=== PATIENT | female | born 1965 | race Hispanic/Latino ===

== ENCOUNTER → 2021-09-08 | Outpatient (CLI) | payer BC | END | disposition home or self-care (01) | LOC: RAH 13:00 | PROVIDERS: ATTEND Family Medicine | DX: M79.662 Pain in left lower leg (principal); R60.0 Localized edema | CPT/HCPCS: 93971 ==

== ENCOUNTER 2024-04-25 22:17 | Inpatient (IN) | payer BC ==
[~2024-04-25] VITALS: Ht 157.5 cm; Wt 123.1 kg
--- NOTE | 2024-04-25 22:34 | ERN ---
ED Note History of Present Illness Stated Complaint: C/O CHILLS, SHIVERING, FEVER Chief Complaint: Fever Time Seen by MD: 22:28 Dictation: This is a 58-year-old female morbidly obese presented to the emergency room with complaints of high fevers chills and shivering. She stated that she went to work today and even picked up her grandchildren and had a normal day however as the night went by she started having severe chills and high fever somewhere around 9:15 p.m.. She denied any nausea vomiting diarrhea hematemesis or melena no history of any headaches body aches. No history of any dysuria hematuria burning micturition. She was extremely weak and looked sick even to move out of wheelchair. Although initially she denied any pain anywhere eventually upon re- evaluation she did indicate that she had left flank pain for the past 2-3 days which is new. Temperature was 105 pulse 110 respirations 20 blood pressure 116/57 with a pulse oximetry of 97% on room She has a known history of diabetes mellitus and hypertension. Allergies: Coded Allergies: No Known Allergies (Unverified Allergy, Unknown, 04/25/24) Past Medical History Past Medical History: Diabetes-Type II, Hypertension Surgical History: None Family History: Negative History: Not Applicable RN Note Reviewed/Agreed w/PFSH: Yes Review of System Dictation Constitutional: Positive for fever,chills, and denies weight loss Eyes: Negative for injury, pain,redness, and discharge ENT: Negative for injury,pain or swelling Cardiovascular: Negative for chest pain, palpitations, and edema Respiratory: Negative for shortness of breath, cough, and wheezing, Abdomen/GI: Negative for abdominal pain, nausea, vomiting, diarrhea, and constipation Back: Negative for injury and pain : Negative for injury, bleeding and discharge MS/Extremity: Negative for injury and deformity Skin: Negative for rash, and discoloration Neuro: Negative for headache, weakness, numbness, tingling, and seizure Psych: Negative for suicide ideation, homicidal ideation, and hallucinations Initial Vital Sign VS Vital Signs Date Time Temp Pulse Resp B/P (MAP) Pulse Ox O2 Delivery O2 Flow Rate FiO2 04/25/24 22:23 105.1 110 20 116/57 93 Room Air 04/25/24 22:45 0 21 Physical Exam Dictation General: awake, alert, NAD morbidly obese Head/Face: Normocephalic, atraumatic Eyes: PERRL, EOMI, vision at baseline ENT: oral cavity clear, TMs clear, no signs of infection Neck: Trachea midline, supple, no nuchal rigidity Cardiovascular: RRR, normal S1/S2, No MRGs, no JVD Respiratory: CTAB, no respiratory distress, No rales or wheezes Abdomen: Soft, non-tender, non-distended, normal bowel sounds, no guarding or rebound. Left flank tenderness Skin: Warm, dry, normal turgor, no rash MS/Extremity: Pulses equal, no cyanosis, neurovascular intact, FROM Neuro: COAx4, GCS 15, strength 5/5, CN 2-12 intact, normal cerebellar exam, normal gait, Psych: Normal behavior, mood, and affect normal Extremities-trace edema without any palpable cords, Homans sign is negative Results (Laboratory/Radiology) Laboratory/Radiology Laboratory Tests Test 04/25/24 22:37 04/25/24 22:45 04/26/24 00:10 Urine Color LIGHT-YELLOW (YELLOW) Urine Appearance CLEAR (CLEAR) Urine pH 5.5 (5.0-8.0) Urine Specific [place] 1.032 (1.001-1.031) Urine Protein 10 mg/dL (NEGATIVE) H Urine Glucose (UA) >=1000 mg/dL (NEGATIVE) H Urine Ketones NEGATIVE mg/dL (NEGATIVE) Urine Occult Blood +- (TRACE) (NEGATIVE) H Urine Nitrate NEGATIVE (NEGATIVE) Urine Bilirubin NEGATIVE mg/dL (NEGATIVE) Urine Urobilinogen 0.2 mg/dL (0.2-1.0) Urine Leukocyte Esterase NEGATIVE Sandor/uL Urine RBC 2-5 /HPF (0-1) H Urine WBC 6-10 /HPF (0-1) H Urine Squamous Epithelial Cells FEW /HPF (0-2) Urine Bacteria None /HPF (None Seen) White Blood Count 3.5 K/uL (4.8-10.8) L Red Blood Count 4.69 MIL/uL (4.00-5.50) Hemoglobin 14.0 g/dL (12.0-16.0) Hematocrit 42.0 % (36-48) Mean Corpuscular Volume 89.6 fL (79-99) Mean Corpuscular Hemoglobin 29.9 pg (27.0-33.0) Mean Corpuscular Hemoglobin Concent 33.3 g/dL (32.0-36.0) Red Cell Distribution Width 14.8 % (11.0-15.5) Platelet Count 161 K/uL (130-400) Mean Platelet Volume 10.3 fL (7.5-10.5) Immature Granulocyte % (Auto) 4.6 % (0-1) H Neutrophils (%) (Auto) 81.1 % (40.0-77.0) H Lymphocytes (%) (Auto) 11.4 % (21.0-51.0) L Monocytes (%) (Auto) 1.4 % (3.0-13.0) L Eosinophils (%) (Auto) 0.6 % (0.0-8.0) Basophils (%) (Auto) 0.9 % (0.0-5.0) Neutrophils # (Auto) 2.8 K/uL (1.8-7.7) Lymphocytes # (Auto) 0.4 K/uL (1.0-4.8) L Monocytes # (Auto) 0.1 K/uL (0.1-1.0) Eosinophils # (Auto) 0.02 K/uL (0.00-0.70) Basophils # (Auto) 0.03 K/uL (0.00-0.20) Absolute Immature Granulocyte (auto 0.16 K/uL (0-1) Nucleated Red Blood Cells 0.0 % (0.0-0.19) Sodium Level 142 mmol/L (136-145) Potassium Level 3.8 mmol/L (3.5-5.1) Chloride Level 104 mmol/L (101-111) Carbon Dioxide Level 28 mmol/L (21-32) Blood Urea Nitrogen 13 mg/dL (7-18) Creatinine 0.8 mg/dL (0.5-1.0) Glomerular Filtration Rate Calc 85 mL/min (>90) Random Glucose 117 mg/dL (70-105) H Lactic Acid Level 3.8 mmol/L (0.8-2.5) H Total Calcium 8.6 mg/dL (8.5-10.1) Total Creatine Kinase 60 U/L (21-232) Troponin I High Sensitivity 31 ng/L (4-50) B-Type Natriuretic Peptide 42 pg/mL (0-100) Influenza Type A Antigen Negative For Type A Influenza Type B Antigen Negative For Type B SARS-CoV-2 Antigen (Rapid) PRESUMPTIVE NEGATIVE Blood Gas Specimen Type Arterial Arterial Blood pH 7.458 (7.350-7.450) Arterial Blood Partial Pressure CO2 27 mmHg (32-45) L Arterial Blood Partial Pressure O2 59.9 mmHg (83.0-108.0) L Arterial Blood HCO3 18.8 mmol/L (21.0-28.0) L Arterial Blood Oxygen Saturation 92.3 % (94.0-98.0) L Arterial Blood Base Excess -3.4 mmol/L (-2.0-3.0) L Hemoglobin (Blood Gas) 14.5 g/dL (12.0-16.0) Sodium (Blood Gas) 140 MMOL/L (136-145) Bedside Potassium (Blood Gas) 3.2 MMOL/L (3.4-4.5) L Bedside Chloride (Blood Gas) 105 MMOL/L (98-107) Bedside Glucose (Blood Gas) 126 MG/DL (65-95) H Bedside Ionized Calcium (Blood Gas) 1.13 MMOL/L (1.15-1.33) L Bedside Lactic Acid (Blood Gas) 3.72 MMOL/L (0.36-0.75) *H Blood Gas Temperature 37.0 CELSIUS (35.5-37.0) Blood Gas Vent Mode RA (ROOM AIR) FiO2 21.0 % Blood Gas Specimen Comment LR Labs Reviewed?: Yes EKG Comment: EKG done on 04/25/2024 at 10:42 p.m. showed a heart rate of 1 1 9, SC 123, QRS 143, QT/QTC 370/521 Impression sinus tachycardia with a evidence of right bundle branch block intraventricular conduction delay small Q's in the inferior leads. Interpreted by Dr. Head ED Course ED Course Orders Procedure Category Date Status Time Iv Insertion CPOE 04/25/24 Transmitted 22:27 Pulse Ox(Continuous) RT 04/25/24 Transmitted 22:27 Vital Signs Per CPOE 04/25/24 Transmitted Routine 22:27 12 Lead Ekg Tracing- EKG 04/25/24 Logged Technical 22:27 Cbc With Differential LAB 04/25/24 Complete 22: Blood Cult [facility]IOMA 04/25/24 In Process 22:27 Culture Urine [facility]OMA 04/25/24 In Process 22:27 Creatine Kinase, Total LAB 04/25/24 Complete 22:27 Lactic Acid LAB 04/25/24 Complete 22:27 Basic Metabolic Panel LAB 04/25/24 Complete 22:27 0.9%Nacl 1000ml (Ns PHA 04/25/24 Complete 1000ml) 22:30 Blood Cult CHIOMA 04/25/24 Logged 22:28 Urinalysis Profile LAB 04/25/24 Complete 22:28 Troponin I High LAB 04/25/24 Complete Sensitivity 22:28 Chest 1vw RAD 04/25/24 Taken 22:28 Acetaminophen 500mg PHA 04/25/24 Complete Tab (Tylenol 500mg T 22:30 Influenza Type A & B, LAB 04/25/24 Complete Rapid 22:31 Covid19 (Sars Antigen LAB 04/25/24 Complete Rapid) 22:31 B-Type Natriuretic LAB 04/25/24 Complete Peptide 23:35 Zosyn 3.375gm+Ns 50ml PHA 04/26/24 Complete (Zosyn 3.375gm+Ns 00:00 Vancomycin 1g/250ml PHA 04/26/24 Complete Kit (Vancomycin 1g/2 00:00 Azithromycin 500mg+Ns PHA 04/26/24 In Process 250ml (Azithromyci 00:00 Norepinephrin 4mg/Ns PHA 04/26/24 In Process 250ml (Levophed 4mg 00:00 Norepinephrin 4mg/Ns PHA 04/25/24 Complete 250ml (Levophed 4mg 23:43 Admit Orders ADM 04/25/24 Transmitted 23:52 Lactated Ringers PHA 04/26/24 In Process 1000ml (Lactated 00:00 Edm Admit Bridge Order ADM 04/25/24 Transmitted 23:58 Admit Orders ADM 04/25/24 Transmitted 23:58 Ct Abdomen/Pelvis W/O CT 04/25/24 Logged Contrast 23:58 Hydrocortisone Suc PHA 04/26/24 Complete 100mg (Solu-Cortef 1 00:00 Arterial Blood Gas LAB 04/26/24 Complete Arterial + 00:10 Arterial Blood Gas + RT 04/26/24 Transmitted 00:23 Current Medications Medications (Trade) Dose Ordered Sig/Karthik Route PRN Reason Start Time Stop Time Status Last Admin Dose Admin Acetaminophen (TYLenol 500MG TAB) 1,000 mg ONCE ONCE PO 04/25/24 22:30 04/25/24 22:31 DC 04/25/24 22:55 Norepinephrine 250 ml @ As Directed STK-MED ONCE IV 04/25/24 23:43 04/25/24 23:43 DC Sodium Chloride 1,000 ml @ 0 mls/hr ONCE ONCE IV 04/25/24 22:30 04/25/24 22:31 DC 04/25/24 22:54 Vital Signs Date Time Temp Pulse Resp B/P (MAP) Pulse Ox O2 Delivery O2 Flow Rate FiO2 04/25/24 23:55 84/39 04/25/24 23:46 101.7 117 28 69/33 90 Nasal Cannula* 2 28 04/25/24 23:00 102.9 118 29 100/48 93 Room Air* 0 21 04/25/24 22:55 102.9 04/25/24 22:45 102.9 124 26 99/42 93 Room Air* 0 21 04/25/24 22:23 105.1 110 20 116/57 93 Room Air We will perform diagnostic labs, advanced imaging and administer medications according to the patient's complaint. Once the results are available, will review and personally interpreted the labs to rule out any acute life- threatening emergency the trach require immediate intervention and treatment. I will then re-evaluate the patient after treatment and diagnostic exams have return to determine whether the patient requires any further testing, can safely be discharged home or need further admission to hospital for additional treatment and evaluation. Sepsis pathway was initiated 11:50 p.m. Reviewed CBC showed a white count of 3.5 lactic acid 3.8 viral serology negative for influenza and COVID urinalysis was abnormal with a 6-10 WBCs no leuko esterase. Chest x-ray showed a poor penetration but no obvious focal infiltrate. Patient received 2 L of fluids so far and the blood pressures are hovering around 99-100/42-48. She remains febrile at 1:02 a.m. 0.9. We will initiate pressors as necessary keep maps 60-65. Patient may certainly have pyelonephritis or perinephric abscess I will request CT scan of the abdomen and pelvis to better evaluate the source of fever. Recommended admission to the hospital for further management 11:54 p.m.-patient was accepted by hospitalist group mid-level provider Jose for admission to ICU and further management CT scan of the abdomen and pelvis requested pending at this time Medical Decision Making MDM MDM: Differential diagnosis: Rationale: Tests considered and ordered secondary to shared decision making include: labs, ECG and radiology Previous outside records reviewed: Old ER visits. Risk of complication and/or morbidity or mortality of patient management: None Medications-Per medication reconciliation Need for hospitalization: Patient does meet criteria for hospitalization. Need for emergency major/minor surgery: No There are no social concerns with this patient. Prescription drug management Prescriptions will include symptomatic care Patient's prior external medical records from other ER visits were reviewed by me as indicated. Prior testing and results from previous visits were reviewed. Prior tests were taken into account with medical decision making and resource utilization, independent historian/historians were used to obtain complete m edical history. I independently interpreted the test that were performed, results were reviewed by me and considered findings on radiology if ordered. Medical management and examination interpretation discussions were had by me with other qualified healthcare professionals as indicated for the patient's care. Problem List Problem List: (1) Diabetes mellitus (2) Acute cystitis (3) Hyperthermia (4) Septic shock (5) Pyelonephritis DX & DISP Disposition: Inpatient Decision to Admit Time: 11:45 Departure Impression: Primary Impression: Septic shock Additional Impressions: Pyelonephritis, Diabetes mellitus, Acute cystitis, Hyperthermia Condition: Stable Additional Instructions: Patient was informed of all the diagnostic labs and procedures conducted in the emergency room today and demonstrated understanding of the results. I personally reviewed and interpreted all the diagnostic exams performed in the ER today. The patient will be admitted to the hospital for further treatment and evaluation. Disposition-admit to facility Condition-stable/guarded Course-uncertain at this time Pain status-decreased Assessment-exam unchanged Admission Certification- I certify that the patients status is appropriate and is based on my best clinical judgment and the patient's condition as documented in the medical records Referrals: MOI DELGADO MD (PCP) ROMMEL HEAD MD Apr 25, 2024 22:34
--- NOTE | 2024-04-25 22:40 | NUR ---
1ST SET OF BLOOD CULTURES COLLECTED AT THIS TIME./JORGE
--- NOTE | 2024-04-25 22:50 | NUR ---
PATIENT WEARING A SWEATER, SHORTS AND SWEAT PANTS. INSTRUCTED PATIENT TO REMOVE CLOITHING ITEMS AT THIS TIME DUE TO FEVER BEING PRESENT, PATIENT VERBALIZED UNDERSTANDING. HOSPITAL GOWN PROVIDED AT THIS TIME./JORGE
[2024-04-25] MEDS: 0.9%NACL 1000ML 1,000 ML IV ONE (22:54)
[2024-04-25 22:55] LABS: APPEARANCE,URINE CLEAR (CLEAR); BILIRUBIN,URINE NEGATIVE (NEGATIVE); COLOR,URINE LIGHT-YELLOW (YELLOW); GLUCOSE, URINE (UA) >=1000 mg/dL (NEGATIVE); KETONES,URINE NEGATIVE (NEGATIVE); LEUKOCYTE ESTERASE ,URINE NEGATIVE Leu/uL (NEGATIVE); NITRATE,URINE NEGATIVE (NEGATIVE); PH,URINE 5.5 (5.0-8.0); PROTEIN,URINE 10 mg/dL (NEGATIVE); UROBILINOGEN,URINE 0.2 mg/dL (0.2-1.0)
[2024-04-25] MEDS: acetaMINOPHEN 500 MG TABLET PO ONE (22:55)
[2024-04-25 22:57] LABS: ADD UA MICROSCOPIC YES
[2024-04-25 23:02] LABS: MUCUS,URINE RARE LPF (None Seen); SQUAMOUS EPITHELIAL CELL,UR FEW /HPF (0-2)
[2024-04-25 23:15] LABS: COVID19 (SARS ANTIGEN RAPID) PRESUMPTIVE NEGATIVE (NEGATIVE)
[2024-04-25 23:16] LABS: INFLUENZA TYPE A Negative For Type A (NEGATIVE); INFLUENZA TYPE B Negative For Type B (NEGATIVE)
--- NOTE | 2024-04-25 23:32 | NUR ---
Dr Mckoy made aware of current vitals, no orders for antibiotics given
[2024-04-25 23:37] LABS: BASOPHILS # (AUTO) 0.03 K/uL (0.00-0.20); BASOPHILS % (AUTO) 0.9 % (0.0-5.0); EOSINOPHILS # (AUTO) 0.02 K/uL (0.00-0.70); EOSINOPHILS % (AUTO) 0.6 % (0.0-8.0); IMMATURE GRANULOCYTE ABSOLUTE 0.16 K/uL (0-1); LYMPHOCYTES # (AUTO) 0.4 K/uL (1.0-4.8); LYMPHOCYTES % (AUTO) 11.4 % (21.0-51.0); MEAN CORPUSCULAR HEMOGLOBIN 29.9 pg (27.0-33.0); MEAN CORPUSCULAR HGB CONC 33.3 g/dL (32.0-36.0); MEAN CORPUSCULAR VOLUME 89.6 fL (79-99); MONOCYTES # (AUTO) 0.1 K/uL (0.1-1.0); MONOCYTES % (AUTO) 1.4 % (3.0-13.0); NEUTROPHILS # (AUTO) 2.8 K/uL (1.8-7.7); NEUTROPHILS % (AUTO) 81.1 % (40.0-77.0); PLATELET COUNT (AUTO) 161 K/uL (130-400); RED BLOOD CELL COUNT(AUTO) 4.69 MIL/uL (4.00-5.50); RED CELL DISTRIBUTION WIDTH 14.8 % (11.0-15.5); WHITE BLOOD COUNT (AUTO) 3.5 K/uL (4.8-10.8)
[2024-04-25 23:45] LABS: CREATININE 0.8 mg/dL (0.5-1.0); POTASSIUM 3.8 mmol/L (3.5-5.1)
--- NOTE | 2024-04-25 23:53 | HP ---
History of Present Illness Reason for Visit: chills History of Present Illness Ms. Rodriguez is a 58-year-old female that was seen and examined today on 04/25/24. Patient is a good historian and personal health. Patient reports that she came to the emergency department with a chief complaint of chills. Onset was today at 9:00 p.m.. Location is to entire body. Duration is on and off. Character is described as" uncontrolled shivering. " symptoms are aggravated with prolonged sitting. There was no alleviating factors. Patient reports associated left flank pain. Today in the emergency department WBCs 3.5, left shift neutrophils 81.1%, lactic acid 3.8. Chest x-ray is pending radiology interpretation. No further diagnostic imaging has been ordered at the time of admission. Additionally patient arrived with a temperature of 102.9, heart rate 118, respirations 29, blood pressure decreased to 69/33, lactic acid 3.8. Blood pressure did not respond to fluid resuscitation. Patient was subsequently subsequently started on vasopressor therapy with Levophed. Emergency room physician recommended that patient be admitted with a diagnosis of septic shock. Past Medical History ADDITIONAL PAST MEDICAL HISTORY: [Diabetes mellitius type2, hypertension] SOCIAL HISTORY: [Negative for smoking. Patient drinks 1 michelada once a month. Patient denies drug use. Patient lives with the Ramos Rodriguez. Patient is typically independent of all her ADLs. Patient is employed full-time at [employer]. Patient has good access to health care through her insurance. Patient denies difficulty paying her bills.] SURGICAL HISTORY: [Left ankle ORIF, hernia repair, BTL, cholecystectomy] Review of Systems General: No Fever, No Chills, No Night Sweats, No Fatigue, No Malaise, No Appetite, No Other HEENT: No Head Aches, No Visual Changes, No Eye Pain, No Ear Pain, No Dysphasia, No Sinus Congestion, No Post Nasal Drip, No Sore Throat, No Other Pulmonary: No Dyspnea, No Cough, No Pleuritic Chest Pain, No Other Cardiovascular: No: Chest Pain, Palpitations, Orthopnea, Paroxysmal Noc. Dyspnea, Edema, Lt Headedness, Other Gastrointestinal: No: Nausea, Vomiting, Abdominal Pain, Diarrhea, Constipation, Melena, Hematochezia, Other Genitourinary: No Dysuria, No Frequency, No Incontinence, No Hematuria, No Retention, No Other Musculoskeletal: back pain; No: other, neck pain, shoulder pain, arm pain, hand pain, leg pain, foot pain Skin: No Urticaria, No Rash, No Other Neurological: No: Weakness, Numbness, Incoordination, Change in speech, Confusion, Seizures, Other Allergies: Coded Allergies: No Known Allergies (Unverified Allergy, Unknown, 04/25/24) Exam Vital Signs Vital Signs Date Time Temp Pulse Resp B/P (MAP) Pulse Ox O2 Delivery O2 Flow Rate FiO2 04/25/24 23:46 101.7 117 28 69/33 90 Nasal Cannula* 2 28 General Appearance: Alert, Oriented X3, Cooperative, moderate distress HEENT: Atraumatic, PERRLA, EOMI Respiratory: Clear to auscultation, Normal air movement Cardiovascular: Regular rate, Regular rhythm, Normal S1, Normal S2 Abdominal: Normal bowel sounds, Soft, No tenderness Extremities: No edema Skin: No significant lesion Neuro: Normal speech, Strength at 5/5 X4 ext, Sensation intact, Cranial nerves 3-12 NL Psych/Mental Status: Mental status NL, Mood NL, Thoughts/Content NL Assessment/Plan ASSESSMENT: [ Septic shock, POA Hypotension requiring vasopressor support, POA Hyperlactatemia, POA Neutropenia, POA Diabetes mellitius type2, POA Hypertension] PLAN: [ Admit patient to ICU as inpatient status. Place patient on telemetry monitoring. Patient will be followed by critical care team. Septic shock with hypotension requiring vasopressor support, hyperlactatemia, neutropenia: Fluid resuscitation with lactated Ringer's 30 mL/kg. Empiric antibiotic therapy with Zosyn. Check procalcitonin, follow up with the results. Recheck lactic acid in a.m.. Continue vasopressor support with Levophed per hospital protocol. Monitor patient's labs Follow up with radiology report of CT of abdomen and pelvis. Diabetes mellitus type 2: Check hemoglobin A1c in a.m. Glucometer checks a.c. and HS 1800 ADA diet Humulin R sliding scale one Hypertension: Avoid hypertension medications at this time due to hypotension. GI prophylaxis, famotidine 20 mg by mouth once daily. DVT prophylaxis, Lovenox 40 mg subcutaneously once daily. Critical Care Time: I spent ____ 51 __ minutes of critical care time with the patient. I reviewed lab work, change the patient's medication, and coordinated protocol in the event of tachycardia or desaturation. The patient status remains unchanged. This document was generated in part using voice recognition software, occasional wrong word or sound alike substitutions may have occurred due to the inherent limitations of voice recognition software. Read the chart carefully and recognize using context, where the substitutions have occurred. Although every effort was made to edit the content, fuel agent and typing errors may occur ATTESTATION BY PHYSICIAN I have seen and examined the patient. I reviewed the documentation, medical decision making, and treatment plan as noted by the mid-level provider above. I agree with the findings and plan of care. JOSEFINA FRASER [facility] Apr 25, 2024 23:53
[2024-04-25] MEDS: NOREPINEPHRIN 4MG/NS 250ML 250 ML IV SCH (23:55)
[2024-04-25] MEDS: NOREPINEPHRIN 4MG/NS 250ML 250 ML IV ONE (23:56)
[2024-04-26] VITALS (48 sets, daily range): BP systolic 87–158; BP diastolic 43–72; PULSE 62–83; RESP 15–37; TEMP 97.8–98.2; O2SAT 93–98
--- NOTE | 2024-04-26 00:05 | NUR ---
CRITICAL CARE CONSULT AT THIS TIME Addendum: 04/26/24 at 0619 by [email or web address] CRITICAL CARE CONSULT DONE AT THIS TIME;YRN HELMS AT BEDSIDE TO EVALUATE PT
[2024-04-26 00:11] LABS: ABG BASE EXCESS -3.4 mmol/L (-2.0-3.0); ABG HCO3 18.8 mmol/L (21.0-28.0); ABG OXYGEN SATURATION 92.3 % (94.0-98.0); ABG PCO2 27 mmHg (32-45); ABG PH 7.458 (7.350-7.450); CARBON MONOXIDE 0.7 % (0.5-1.5); DEVICE COMMENT LR; HHb 7.6; PO2, ARTERIAL BG 59.9 mmHg (83.0-108.0); VENT MODE, BG RA (ROOM AIR)
[2024-04-26] MEDS: VANCOMYCIN KIT 1 GM/250 ML IV.KIT IV ONE (00:11)
[2024-04-26] MEDS: ZOSYN 3.375GM +NS 50ML IV ONE (00:20)
[2024-04-26] MEDS: LACTATED RINGERS 1000ML 1,503 ML IV ONE ×2 (00:21→10:18)
--- NOTE | 2024-04-26 00:37 | CONS ---
[facility] CONSULTATION NOTE Date Patient Seen: Apr 26, 2024 Time of Visit: 00:27 Supervising Physician: Dr. Gian Umana Reason for Consultation: Septic shock Consulting Physician: [facility] Outpatient Specialists: [ ] Inpatient Consults: [ ] PROBLEM LIST: Septic shock, chest x-ray showed bilateral infiltrates, negative for flu or COVID, POA Morbid obesity, POA Lactic acidosis, POA Acute metabolic acidosis, POA Acute hypoxic respiratory failure, POA DM type 2, with hyperglycemia, POA PLAN: Admit per primary VS per ICU protocol Hold antihypertensive for now Continue Levophed drip Keep map above 65 mmHg Obtain ABG now Continue O2 therapy Keep head of bed above 30 DuoNeb q.6 Continue antibiotics Strict I&O Continue IV fluid Intubation watch BiPAP as needed Obtain sputum for culture Insert Segovia catheter now Trend troponin level Trend lactic acid level Follow up culture results Bilateral SCDs Complete bedrest for now CBC, CMP, magnesium level daily HPI: 58-year-old female with past medical history of DM type 2, morbid obesity who presented to ED with complaint of chills that started this morning and found to have septic shock, acute hypoxic respiratory failure, and possible community-acquired pneumonia. Patient was seen and examined in ED with no relatives present at bedside. According to her started have some chills and subjective fever on 9:00 a.m. this morning. She denies any exposure to sick people, there is no associated confusion, dizziness, chest pain, however she is complaining of shortness of breaths. In ED chest x-ray was done and showed possible bilateral infiltrates, CBC is significant for WBC of 3.5, initial lactic acid of 3.8, negative for COVID and flu, normal troponin level, and normal BNP level. In ED patient was found to have systolic blood pressure in the 60s, minimally improved with2 L of IV fluids, patient was subsequently started on Levophed drip and was given another L of IV fluids. [facility] critical Care is consulted for evaluation and septic shock management. At present patient is currently hemodynamically stable on Levophed drip, on nasal cannula with appropriate oxygen saturation, mildly tachycardic, with SBP at around 85-90 mmHg. On evaluation patient is mildly tachypneic, with audible rhonchi bilaterally. Patient denies any headache, chest pain, abdominal pain, however she is complaining of chills and generalized body weakness. Patient denies any smoking, alcohol intake, illicit drug use. PAST MEDICAL HX: see above PAST SURGICAL HX: noncontributory SOCIAL HISTORY: No tobacco, ETOH, or illicit drug use Coded Allergies: No Known Allergies (Unverified Allergy, Unknown, 04/25/24) REVIEW OF SYSTEMS: 12 point ROS reviewed with patient. Pertinent positives mentioned above. Otherwise negative. PHYSICAL EXAM: GENERAL: alert, weak, awake oriented x 3 HEENT: EOMI, Sclera non icteric, moist mucosa NECK: Supple, no JVD, trachea midline LUNGS: Coarse bilateral lung sounds, tachypneic HEART: Regular rate and rhythm. Normal S1 and S2, without murmurs ABD: Large habitus EXT: No clubbing cyanosis or edema NEURO: Alert and oriented to person, follows commands Vital Signs (last 8hr) Date Time Temp Pulse Resp B/P (MAP) Pulse Ox O2 Delivery O2 Flow Rate FiO2 04/25/24 23:55 84/39 04/25/24 23:46 101.7 117 28 69/33 90 Nasal Cannula* 2 28 04/25/24 23:00 102.9 118 29 100/48 93 Room Air* 0 21 04/25/24 22:55 102.9 04/25/24 22:45 102.9 124 26 99/42 93 Room Air* 0 21 04/25/24 22:23 105.1 110 20 116/57 93 Room Air LABS: Hematology Labs: Test 04/25/24 22:45 Range/Units White Blood Count 3.5 L 4.8-10.8 K/uL Red Blood Count 4.69 4.00-5.50 MIL/uL Hemoglobin 14.0 12.0-16.0 g/dL Hematocrit 42.0 36-48 % Mean Corpuscular Volume 89.6 79-99 fL Mean Corpuscular Hemoglobin 29.9 27.0-33.0 pg Mean Corpuscular Hemoglobin Concent 33.3 32.0-36.0 g/dL Red Cell Distribution Width 14.8 11.0-15.5 % Platelet Count 161 130-400 K/uL Mean Platelet Volume 10.3 7.5-10.5 fL Immature Granulocyte % (Auto) 4.6 H 0-1 % Neutrophils (%) (Auto) 81.1 H 40.0-77.0 % Lymphocytes (%) (Auto) 11.4 L 21.0-51.0 % Monocytes (%) (Auto) 1.4 L 3.0-13.0 % Eosinophils (%) (Auto) 0.6 0.0-8.0 % Basophils (%) (Auto) 0.9 0.0-5.0 % Neutrophils # (Auto) 2.8 1.8-7.7 K/uL Lymphocytes # (Auto) 0.4 L 1.0-4.8 K/uL Monocytes # (Auto) 0.1 0.1-1.0 K/uL Eosinophils # (Auto) 0.02 0.00-0.70 K/uL Basophils # (Auto) 0.03 0.00-0.20 K/uL Absolute Immature Granulocyte (auto 0.16 0-1 K/uL Nucleated Red Blood Cells 0.0 0.0-0.19 % Chemistry Labs: Test 04/25/24 22:45 Range/Units Sodium Level 142 136-145 mmol/L Potassium Level 3.8 3.5-5.1 mmol/L Chloride Level 104 101-111 mmol/L Carbon Dioxide Level 28 21-32 mmol/L Blood Urea Nitrogen 13 7-18 mg/dL Creatinine 0.8 0.5-1.0 mg/dL Glomerular Filtration Rate Calc 85 >90 mL/min Random Glucose 117 H 70-105 mg/dL Lactic Acid Level 3.8 H 0.8-2.5 mmol/L Total Calcium 8.6 8.5-10.1 mg/dL Total Creatine Kinase 60 21-232 U/L Troponin I High Sensitivity 31 4-50 ng/L B-Type Natriuretic Peptide 42 0-100 pg/mL DIAGNOSTICS / RADIOLOGY RESULTS: [ ] PLAN NEURO: Minimize central acting medications as possible. Fall Precautions. Well lighted room through the day and minimize interruptions through the night to prevent acute delirium. PULMONARY: Supplemental 02 as needed Titrate Fio2 to keep Spo2 > or = 90% DuoNebs and CPT as needed IS hourly while awake for pulmonary hygiene Out of bed to chair as tolerated VAP Bundle CARDIOVASCULAR: Follow hemodynamics. Titrate vasopressor to keep MAP >65 or systolic blood pressure >95mmHg DIPS: Levophed drip LINES: PIV, Segovia GI & NUTRITION: NPO for now Continue nutritional support Aspirations precautions Prokinetic agents and laxatives as needed KIDNEYS & ELECTROLYTES: Strict monitoring of intake and output Daily weights Avoid nephrotoxic agents Monitor electrolytes and replace as needed Goal urine output of 30mL/hr or 0.5mL/kg/hr ENDOCRINE: Maintain blood glucose between 100-180 at all times. Insulin sliding scale for blood glucose management INFECTIOUS DISEASE: Trend temperature. Dillard-culture if febrile. Micro: [ ] Antibiotics: Zosyn HEMATOLOGY & COAGULATION: Monitor H&H. Keep Hgb > 7 Transfuse 1 unit of PRBC for Hgb < 7 Transfuse 1 pack of platelets of platelets < 20, 000 Watch for any signs and symptoms of bleeding SKIN: Pressure ulcer prevention per facility protocol Rehab: PT/OT Prophylaxis: GI: PPI DVT: Bilateral SCDs, Lovenox Code Status: Full Resuscitation Disposition: ICU Other: Total patient care time exceeds 35 minutes excluding all procedures. Supervising physician Dr. Gian ALEJANDRO,SCOOTER Piña AGACN Apr 26, 2024 00:37
[2024-04-26] MEDS ORDERED: ondanSETRON 4MG INJ IV PRN (01:00)
--- NOTE | 2024-04-26 01:21 | NUR ---
CARE ASSUMED AT THIS TIME.
[2024-04-26] MEDS ORDERED: morPHINE 2 MG SYG IV PRN (01:30)
[2024-04-26] MEDS: hydroCORTisone SOD SUCCINATE 100 MG/2 ML VIAL IV ONE (02:33)
[2024-04-26] MEDS: LACTATED RINGERS 1000ML 1,000 ML IV SCH (02:34)
[2024-04-26] MEDS: AZITHROMYCIN 500MG+NS 250ML 250 ML IVPB SCH (02:34)
[2024-04-26] MEDS: ZOSYN 3.375GM+NS 50ML 50 ML IV SCH (05:22)
[2024-04-26 05:46] LABS: BASOPHILS % (AUTO) 0.3 % (0.0-5.0); EOSINOPHILS # (AUTO) 11.18 K/uL (0.00-0.70); EOSINOPHILS % (AUTO) 31.8 % (0.0-8.0); HEMATOCRIT 40.6 % (36-48); IMMATURE GRANULOCYTE ABSOLUTE 1.04 K/uL (0-1); LYMPHOCYTES # (AUTO) 0.4 K/uL (1.0-4.8); LYMPHOCYTES % (AUTO) 1.3 % (21.0-51.0); MEAN CORPUSCULAR HEMOGLOBIN 30.3 pg (27.0-33.0); MONOCYTES # (AUTO) 0.7 K/uL (0.1-1.0); MONOCYTES % (AUTO) 1.9 % (3.0-13.0); NEUTROPHILS # (AUTO) 21.8 K/uL (1.8-7.7); NEUTROPHILS % (AUTO) 61.7 % (40.0-77.0); NUCLEATED RED BLOOD CELLS 0.1 % (0.0-0.19); PLATELET COUNT (AUTO) 63 K/uL (130-400); RED BLOOD CELL COUNT(AUTO) 4.56 MIL/uL (4.00-5.50)
[2024-04-26 05:50] LABS: WHITE BLOOD COUNT (AUTO) 35.2 K/uL (4.8-10.8)
--- NOTE | 2024-04-26 06:00 | NUR ---
CRITICAL CARE DIGITAL PRODUCTION OPERATOR TAHA NOTIFIED OF CRITICAL WBC COUNT AND REPEAT LACTIC VALUE; ORDERS RECIEVED AND TRANSCRIBED.
[2024-04-26 06:01] LABS: HEMOGLOBIN A1C 5.8 % (4.0-6.0)
[2024-04-26 06:20] LABS: MAGNESIUM 1.3 mg/dL (1.80-2.40); PHOSPHORUS 1.4 mg/dL (2.5-4.9)
[2024-04-26 06:24] LABS: BAND NEUTROPHILS % (MANUAL) 25 % (0-2); LYMPHOCYTES % (MANUAL) 1 % (22-44); MAN.DIFF COMMENT-IMPRESSION MANUAL DIFFERENTIAL; METAMYELOCYTES % 3 % (0-0); MONOCYTES % (MANUAL) 2 % (2-9); POTASSIUM 2.7 mmol/L (3.5-5.1); SEGMENTED NEUTROPHILS % 69 % (40-70); TOTAL CELLS COUNTED 100
[2024-04-26 06:25] LABS: WBC MORPHOLOGY TOXIC GRANULATION 1+
[2024-04-26 06:26] LABS: PLATELET MORPHOLOGY COMMENT DECREASED
--- NOTE | 2024-04-26 06:30 | EKG ---
[facility] Test Date: 2024-04-25 Test Time: 22:42:15 Pat Name: CLARK SOLIS Department: [facility] Room: 206 Gender: F Social Media Senior Associate: [id number] : 1965 Requested By: ROMMEL HEAD Order Number: [id number] Reading MD: Rolando aBnsal Measurements Intervals Morven Rate: 119 P: 33 CO: 123 QRS: 64 QRSD: 143 T: 1 QT: 370 QTc: 521 Interpretive Statements Sinus tachycardia Right bundle branch block Inferior infarct, age indeterminate No previous ECG available for comparison Electronically Signed On 04-27-2024 19:00:05 CERTIFIED FLIGHT INSTRUCTOR by Rolando Bansal Please click the below link to view image of tracing.
[2024-04-26] MEDS: PoTASSium chl 10% ELIXIR 20MEQ 20 MEQ/15 ML UDCUP PO PRN (06:39)
[2024-04-26] MEDS: PoTASSium chloRIDE 20MEQ/100ML 100 ML IV PRN (06:39)
[2024-04-26] MEDS ORDERED: VANCOMYCIN PROTOCOL PER PHARMACY IV SCH (07:00)
--- NOTE | 2024-04-26 07:05 | NUR ---
PT MOVED TO ED 12 AT THIS TIME; REPORT GIVEN TO ANSLEY ALONSO.
--- NOTE | 2024-04-26 07:15 | NUR ---
REPORT RECEIVED FROM YONG MATT RN
--- NOTE | 2024-04-26 07:30 | NUR ---
ASSESSMENT: PT FOUND IN SUPINE POSITION W/HOB SLIGHTLY ELEVAETED. PT AWAKE AND ALERT. SPOUSE SITTING AT BEDSIDE W/PT. NO ACUTE DISTRESS NOTED. PT ON HOSPITALIST PROGRAM DIRECTOR.SR NO ECTOPY. HOB IN SEMI FOWLERS POSITION. BED LOW AND LOCKED W/SR UP X 2 CARDIO/PULMONARY: PT DENIES ANY CHEST PAIN. S1S2 AUSCULTATED APICALLY. SR ON THE HOSPITALIST PROGRAM DIRECTOR. 2+PULSES TO BILATERAL RADIAL SITES/DORSALIS PEDAL SITES. 1+EDEMA TO BILATERAL LE'S. NO CYANOSIS NOTED TO NAIL BED OF HANDS. PT DENIES ANY SOB. SATS ARE >95% AT THIS TIME W/2L VIA N/C. DENIES ANY SOB. LSCTA TO ALL KIMBROUGH AT THIS TIME. PT HAS THREE IV SITES TO LFA/RFA/RH 18G'S X 3 ALL PATENT. PT CURRENTLY HAS POTASSIUM IV INFUSING, LEVOPHED, ZOSYN AND LR. NEURO: PT A/O X 4. GCS OF 15. FOLLOWS COMMANDS BOTH SIMPLE AND COMPLEX. GI/: PT HAS A 16FR F/C W/YELLOW URINE IN DRAINAGE BAG. STILL STATES C/O L FLANK DISCOMFORT MILD ONLY THOUGH. PT DENIES ANY ABD PAIN. DENIES ANY N/V AT THIS TIME. PT HAS AN OBESE ABD. MUSCULOSKELETAL/INTEGUMENTARY: PT ABLE TO MOVE ALL EXTREMITIES AND NO S/S NOR COMPLAINTS OF SKIN BREAKDOWN.
[2024-04-26] MEDS: FAMOTIDINE 20MG TAB PO SCH (07:58)
[2024-04-26] MEDS: acetaMINOPHEN 325 MG TAB PO PRN (07:59)
[2024-04-26] MEDS: ENOXAPARIN SODIUM 40 MG/0.4 ML SYRINGE SQ SCH (07:59)
[2024-04-26] MEDS: INSULIN humuLIN R 100 UNIT/ML 3ML SQ SCH (08:04)
[2024-04-26 08:27] LABS: INR 1.44 (0.85-1.15); PROTHROMBIN TIME 15.1 SEC (9.6-11.6)
[2024-04-26 08:28] LABS: PARTIAL THROMBOPLASTIN TIME 40.3 SEC (26.3-35.5)
--- NOTE | 2024-04-26 08:54 | HMCIMG ---
CHEST 1VW REASON: sepsis COMPARISON: None FINDINGS: Single view of the chest was obtained. Lungs are clear. Heart size is normal. There is no pulmonary vascular congestion. Mediastinum and bony thorax appear unremarkable. IMPRESSION: 1. Normal single view chest x-ray.
--- NOTE | 2024-04-26 08:55 | PN ---
[facility] PROGRESS NOTE Date Patient Seen: Apr 26, 2024 Time of Visit: 08:53 Supervising Physician: Dr. Alvarado Consulting Physician: [facility] Outpatient Specialists: JULIO CESAR Inpatient Consults: Dr. Alvarado PROBLEM LIST: Shock state- shock Community acquired pneumonia Acute hypoxic respiratory failure, POA Acute complicated cystitis Left flank pain Lactic acidosis, POA DM type 2, with hyperglycemia, POA Morbid obesity BMI 43 Suspect OHS/ ADAL- undiagnosed and untreated PLAN: Continue to wean of Levophed Give IVF with bolus Sent MRSA/flu a and B swab again Follow up with CT scan of the abdomen Continue current antibiotic Zosyn, discontinue vancomycin if MRSA is negative. Continue to follow up with blood culture and urine culture Bowel regimen INTERVAL HISTORY: 04/26 patient is awake alert and oriented x3 lying down in bed not in acute distress. Patient is on 4 L nasal cannula saturation oxygen 100%. We we will wean oxygen as tolerated to keep sats greater 92%. Given BMI of 43 and bicarb was 28 in admission, patient might have OHS/ADAL. We can place a CPAP at night as tolerated. Otherwise lab this morning with sodium 146 this is up from 140 to potassium is 2.7. Chloride is 112. Lactic acid is down to 2.7 procalcitonin is 1.16. Check MRSA swab so we can discontinue vancomycin if negative. Otherwise continue Zosyn. CT scan of the abdomen is showing Single air bubble in the left kidney, no perinephric fat stranding, UA is with negative nitrites and leukocyte esterase but has WBC of 6-10, non bacteria. Continue to follow cultures. Continue to wean Levophed as tolerated. Keep map greater than 65. Keep in ICU given vasopressor requirement. REVIEW OF SYSTEMS: 12 point ROS reviewed with patient. Pertinent positives mentioned above. Otherwise negative. PHYSICAL EXAM: GENERAL: alert, weak, awake oriented x 3 HEENT: EOMI, Sclera non icteric, moist mucosa NECK: Supple, no JVD, trachea midline LUNGS: Coarse bilateral lung sounds, tachypneic HEART: Regular rate and rhythm. Normal S1 and S2, without murmurs ABD: Large habitus EXT: No clubbing cyanosis or edema NEURO: Alert and oriented to person, follows commands Vital Signs (last 8hr) Date Time Temp Pulse Resp B/P (MAP) Pulse Ox O2 Delivery O2 Flow Rate FiO2 04/26/24 07:08 80 27 115/60 99 Nasal Cannula* 4 36 04/26/24 06:04 89 24 122/58 98 Nasal Cannula* 4 36 04/26/24 05:11 98.4 75 23 103/56 98 Room Air* 0 21 04/26/24 03:39 95 24 95/56 93 Room Air* 0 21 04/26/24 01:22 96 22 92/50 100 Room Air* 0 21 LABS: Hematology Labs: Test 04/26/24 05:37 Range/Units White Blood Count 35.2 #*H 4.8-10.8 K/uL Red Blood Count 4.56 4.00-5.50 MIL/uL Hemoglobin 13.8 12.0-16.0 g/dL Hematocrit 40.6 36-48 % Mean Corpuscular Volume 89.0 79-99 fL Mean Corpuscular Hemoglobin 30.3 27.0-33.0 pg Mean Corpuscular Hemoglobin Concent 34.0 32.0-36.0 g/dL Red Cell Distribution Width 15.0 11.0-15.5 % Platelet Count 63 #L 130-400 K/uL Mean Platelet Volume 10.0 7.5-10.5 fL Immature Granulocyte % (Auto) 3.0 H 0-1 % Neutrophils (%) (Auto) 61.7 40.0-77.0 % Lymphocytes (%) (Auto) 1.3 L 21.0-51.0 % Monocytes (%) (Auto) 1.9 L 3.0-13.0 % Eosinophils (%) (Auto) 31.8 H 0.0-8.0 % Basophils (%) (Auto) 0.3 0.0-5.0 % Neutrophils # (Auto) 21.8 H 1.8-7.7 K/uL Lymphocytes # (Auto) 0.4 L 1.0-4.8 K/uL Monocytes # (Auto) 0.7 0.1-1.0 K/uL Eosinophils # (Auto) 11.18 H 0.00-0.70 K/uL Basophils # (Auto) 0.10 0.00-0.20 K/uL Absolute Immature Granulocyte (auto 1.04 H 0-1 K/uL Segmented Neutrophils % 69 40-70 % Band Neutrophils % 25 H 0-2 % Lymphocytes % (Manual) 1 L 22-44 % Monocytes % (Manual) 2 2-9 % Metamyelocytes % 3 H 0-0 % Nucleated Red Blood Cells 0.1 0.0-0.19 % Differential Comment MANUAL DIFFERENTIAL White Cell Morphology Comment TOXIC GRANULATION 1+ Platelet Morphology Comment DECREASED Red Blood Cell Morphology ANISO 1+ Chemistry Labs: Test 04/26/24 05:37 04/25/24 22:45 Range/Units Sodium Level 146 H 136-145 mmol/L Potassium Level 2.7 *L 3.5-5.1 mmol/L Chloride Level 112 H 101-111 mmol/L Carbon Dioxide Level 22 21-32 mmol/L Blood Urea Nitrogen 13 7-18 mg/dL Creatinine 1.0 0.5-1.0 mg/dL Glomerular Filtration Rate Calc 65 >90 mL/min Random Glucose 192 #H 70-105 mg/dL Hemoglobin A1c 5.8 4.0-6.0 % Estimated Average Glucose (eAG) 120 70-126 mg/dL Lactic Acid Level 2.7 H 0.8-2.5 mmol/L Total Calcium 8.1 L 8.5-10.1 mg/dL Phosphorus Level 1.4 L 2.5-4.9 mg/dL Magnesium Level 1.30 L 1.80-2.40 mg/dL Total Creatine Kinase 60 21-232 U/L Troponin I High Sensitivity 31 4-50 ng/L B-Type Natriuretic Peptide 42 0-100 pg/mL Procalcitonin 1.16 H 0.05-0.5 ng/mL Coagulation Labs: Test 04/26/24 07:32 Range/Units Prothrombin Time 15.1 H 9.6-11.6 SEC Prothromb Time International Ratio 1.44 H 0.85-1.15 Activated Partial Thromboplast Time 40.3 H 26.3-35.5 SEC DIAGNOSTICS / RADIOLOGY RESULTS: [ ] PLAN NEURO: Minimize central acting medications as possible. Fall Precautions. Well lighted room through the day and minimize interruptions through the night to prevent acute delirium. PULMONARY: Supplemental 02 as needed Titrate Fio2 to keep Spo2 > or = 90% DuoNebs and CPT as needed IS hourly while awake for pulmonary hygiene Out of bed to chair as tolerated VAP Bundle CARDIOVASCULAR: Follow hemodynamics. Titrate vasopressor to keep MAP >65 or systolic blood pressure >95mmHg DIPS: Levophed drip LINES: PIV, Segovia GI & NUTRITION: NPO for now Continue nutritional support Aspirations precautions Prokinetic agents and laxatives as needed KIDNEYS & ELECTROLYTES: Strict monitoring of intake and output Daily weights Avoid nephrotoxic agents Monitor electrolytes and replace as needed Goal urine output of 30mL/hr or 0.5mL/kg/hr ENDOCRINE: Maintain blood glucose between 100-180 at all times. Insulin sliding scale for blood glucose management INFECTIOUS DISEASE: Trend temperature. Dillard-culture if febrile. Micro: [ ] Antibiotics: Zosyn HEMATOLOGY & COAGULATION: Monitor H&H. Keep Hgb > 7 Transfuse 1 unit of PRBC for Hgb < 7 Transfuse 1 pack of platelets of platelets < 20, 000 Watch for any signs and symptoms of bleeding SKIN: Pressure ulcer prevention per facility protocol Rehab: PT/OT Prophylaxis: GI: PPI DVT: Bilateral SCDs, Lovenox Code Status: Full Resuscitation Disposition: ICU Other: Total patient care time exceeds 35 minutes excluding all procedures. [facility] Apr 26, 2024 08:55
--- NOTE | 2024-04-26 09:09 | NUR ---
MARGARET AMANDAP AT BEDSIDE SPEAKING WITH AND ASSESSING THE PT.
--- NOTE | 2024-04-26 09:22 | PN ---
[facility] PROGRESS NOTE Date of Service: Apr 26, 2024 Time of Service: 09:10 SUBJECTIVE: 04/26 - patient is 58 year old female seen at bedside afebrile, HR 80, BP115/60, tachypneic on 4L nasal cannula. Patient complains of chills and feeling unwell. She continues be on Levophed and triple antibiotics - Vancomycin, Zosyn, Azithromycin. Remarkable labs: white count increased significantly from 3.5 to 35.2, platelets decreased significantly from 161K to 63K. Sodium 146, potassium 2.7, BUN and creatinine within normal range. Lactic acid trending down from 3.72 to 2.7, ABG pH 7.458, CO2 27, O2 59.9, HCO3 18.8, magnesium 1.3, procalcitonin elevated 1.16. BNP and troponins within normal range. CT abdomen/pelvis showed single air bubble in normal appearing left kidney, c onsistent with air refluxing into the kidney from the urinary bladder. Kidneys appear normal otherwise. A small amount of air is present in a nondistended urinary bladder there is a Segovia catheter in position, the air could represent emphysematous cystitis or be secondary to instrumentation. Gallbladder is absent. Potassium protocol initiated. If platelets continue to drop will consider ordering HIT panel and possibly holding Lovenox. Patient is being followed by critical care. We will continue to medically manage and follow recommendations. REVIEW OF SYSTEMS CONSTITUTIONAL: Complains of fevers, chills, denies night sweats. No unintentional weight loss reported. NEUROLOGICAL: Denies headache, amaurosis fugax, motor weakness, sensory deficit, vertigo/spinning sensation, gait abnormalities, or tremors. ENT: No hearing loss, otalgia, otorrhea, rhinitis, rhinorrhea, hoarseness, or sore throat. CARDIOVASCULAR: Denies any exertional angina, dyspnea on exertion, orthopnea, paroxysmal nocturnal dyspnea, palpitations, life-threatening arrhythmias, claudication. PULMONARY: Denies any shortness of breath, cough, phlegm/sputum, hemoptysis, pleuritic chest pain. SLEEP: Denies morning headaches, daytime somnolence or napping. Denies difficulty falling asleep, staying asleep, waking from sleep. Denies knowledge of snoring. GASTROINTESTINAL: Denies any type of dysphagia to either liquids or solids. Denies nausea, vomiting, pyrosis, early satiety, abdominal pain, diarrhea, constipation, or changes in stool consistency or caliber. Denies coffee-ground emesis, hematemesis, hematochezia, or melanotic stools. GENITOURINARY: Denies frequency, urgency, nocturia, hematuria or incontinence (Storage/Irritative symptoms.) Low urinary stream, straining to void, urinary intermittency or hesitancy, splitting of the voiding stream, terminal dribbling. ENDOCRINOLOGIC: Denies polyuria, polydipsia, polyphagia or heat/cold intolerances. HEMATOLOGIC: Denies thrombophilia/previous clots, or coagulopathy/bleeding disorders. ONCOLOGIC: Denies personal history of malignancy. DERMATOLOGIC: Denies rashes or pruritus. PSYCHIATRIC: Denies any suicidal or homicidal ideation. Denies hallucinations. PHYSICAL EXAM GENERAL APPEARANCE: The patient is awake, alert, and oriented, in no acute cardiopulmonary distress. NEUROLOGICAL: Cranial nerves II-XII grossly intact. Motor is 5/5 in bilateral upper and lower extremities proximal to distal. No sensory deficits. HEENT: Face is symmetric. Pupils are equal and reactive. Extraocular movements are intact. NECK: Supple. No JVD. No thyromegaly. No submental, submandibular, pre-/post auricular, occipital or supraclavicular lymphadenopathy. CHEST: Normal chest expansion. No Telemetry. LUNGS: Absence of any rales, positive for rhonchi Negative for any wheezing. CARDIOVASCULAR: Regular. S1 and S2 normal. No appreciable rubs, murmurs or gallops. ABDOMEN: Soft, nontender, and nondistended. There is no rebound, voluntary guarding, or rigidity. : Deferred. No Segovia. EXTREMITIES: Non-edematous and not cyanotic. No clubbing. Good capillary refill. SKIN: No skin breakdown. Vital Signs (last 8hr) Date Time Temp Pulse Resp B/P (MAP) Pulse Ox O2 Delivery O2 Flow Rate FiO2 04/26/24 07:08 80 27 115/60 99 Nasal Cannula* 4 36 04/26/24 06:04 89 24 122/58 98 Nasal Cannula* 4 36 04/26/24 05:11 98.4 75 23 103/56 98 Room Air* 0 04/26/24 03:39 95 24 95/56 93 Room Air* 0 04/26/24 01:22 96 22 92/50 100 Room Air* 0 21 LABS: Laboratory: Test 04/26/24 07:32 04/26/24 05:37 04/26/24 00:10 04/25/24 22:45 Range/Units Prothrombin Time 15.1 H 9.6-11.6 SEC Prothromb Time International Ratio 1.44 H 0.85-1.15 Activated Partial Thromboplast Time 40.3 H 26.3-35.5 SEC White Blood Count 35.2 #*H 4.8-10.8 K/uL Red Blood Count 4.56 4.00-5.50 MIL/uL Hemoglobin 13.8 12.0-16.0 g/dL Hematocrit 40.6 36-48 % Mean Corpuscular Volume 89.0 79-99 fL Mean Corpuscular Hemoglobin 30.3 27.0-33.0 pg Mean Corpuscular Hemoglobin Concent 34.0 32.0-36.0 g/dL Red Cell Distribution Width 15.0 11.0-15.5 % Platelet Count 63 #L 130-400 K/uL Mean Platelet Volume 10.0 7.5-10.5 fL Immature Granulocyte % (Auto) 3.0 H 0-1 % Neutrophils (%) (Auto) 61.7 40.0-77.0 % Lymphocytes (%) (Auto) 1.3 L 21.0-51.0 % Monocytes (%) (Auto) 1.9 L 3.0-13.0 % Eosinophils (%) (Auto) 31.8 H 0.0-8.0 % Basophils (%) (Auto) 0.3 0.0-5.0 % Neutrophils # (Auto) 21.8 H 1.8-7.7 K/uL Lymphocytes # (Auto) 0.4 L 1.0-4.8 K/uL Monocytes # (Auto) 0.7 0.1-1.0 K/uL Eosinophils # (Auto) 11.18 H 0.00-0.70 K/uL Basophils # (Auto) 0.10 0.00-0.20 K/uL Absolute Immature Granulocyte (auto 1.04 H 0-1 K/uL Segmented Neutrophils % 69 40-70 % Band Neutrophils % 25 H 0-2 % Lymphocytes % (Manual) 1 L 22-44 % Monocytes % (Manual) 2 2-9 % Metamyelocytes % 3 H 0-0 % Nucleated Red Blood Cells 0.1 0.0-0.19 % Differential Comment MANUAL DIFFERENTIAL White Cell Morphology Comment TOXIC GRANULATION 1+ Platelet Morphology Comment DECREASED Red Blood Cell Morphology ANISO 1+ Sodium Level 146 H 136-145 mmol/L Potassium Level 2.7 *L 3.5-5.1 mmol/L Chloride Level 112 H 101-111 mmol/L Carbon Dioxide Level 22 21-32 mmol/L Blood Urea Nitrogen 13 7-18 mg/dL Creatinine 1.0 0.5-1.0 mg/dL Glomerular Filtration Rate Calc 65 >90 mL/min Random Glucose 192 #H 70-105 mg/dL Hemoglobin A1c 5.8 4.0-6.0 % Estimated Average Glucose (eAG) 120 70-126 mg/dL Lactic Acid Level 2.7 H 0.8-2.5 mmol/L Total Calcium 8.1 L 8.5-10.1 mg/dL Phosphorus Level 1.4 L 2.5-4.9 mg/dL Magnesium Level 1.30 L 1.80-2.40 mg/dL Blood Gas Specimen Type Arterial Arterial Blood pH 7.458 H 7.350-7.450 Arterial Blood Partial Pressure CO2 27 L 32-45 mmHg Arterial Blood Partial Pressure O2 59.9 L 83.0-108.0 mmHg Arterial Blood HCO3 18.8 L 21.0-28.0 mmol/L Arterial Blood Oxygen Saturation 92.3 L 94.0-98.0 % Arterial Blood Base Excess -3.4 L -2.0-3.0 mmol/L Hemoglobin (Blood Gas) 14.5 12.0-16.0 g/dL Sodium (Blood Gas) 140 136-145 MMOL/L Bedside Potassium (Blood Gas) 3.2 L 3.4-4.5 MMOL/L Bedside Chloride (Blood Gas) 105 98-107 MMOL/L Bedside Glucose (Blood Gas) 126 H 65-95 MG/DL Bedside Ionized Calcium (Blood Gas) 1.13 L 1.15-1.33 MMOL/L Bedside Lactic Acid (Blood Gas) 3.72 *H 0.36-0.75 MMOL/L Blood Gas Temperature 37.0 35.5-37.0 CELSIUS Blood Gas Vent Mode RA ROOM AIR FiO2 21.0 % Blood Gas Specimen Comment LR Total Creatine Kinase 60 21-232 U/L Troponin I High Sensitivity 31 4-50 ng/L B-Type Natriuretic Peptide 42 0-100 pg/mL Procalcitonin 1.16 H 0.05-0.5 ng/mL Influenza Type A Antigen Negative For Type A NEGATIVE Influenza Type B Antigen Negative For Type B NEGATIVE SARS-CoV-2 Antigen (Rapid) PRESUMPTIVE NEGATIVE NEGATIVE Test 04/25/24 22:37 Range/Units Urine Color LIGHT-YELLOW YELLOW Urine Appearance CLEAR CLEAR Urine pH 5.5 5.0-8.0 Urine Specific [place] 1.032 H 1.001-1.031 Urine Protein 10 H NEGATIVE mg/dL Urine Glucose (UA) >=1000 H NEGATIVE mg/dL Urine Ketones NEGATIVE NEGATIVE mg/dL Urine Occult Blood +- (TRACE) H NEGATIVE Urine Nitrate NEGATIVE NEGATIVE Urine Bilirubin NEGATIVE NEGATIVE mg/dL Urine Urobilinogen 0.2 0.2-1.0 mg/dL Urine Leukocyte Esterase NEGATIVE NEGATIVE Sandor/uL Urine RBC 2-5 H 0-1 /HPF Urine WBC 6-10 H 0-1 /HPF Urine Squamous Epithelial Cells FEW 0-2 /HPF Urine Bacteria None None Seen /HPF Current Medications Medications (Trade) Dose Ordered Sig/Karthik Route PRN Reason Start Time Stop Time Status Last Admin Dose Admin Acetaminophen (TYLenol 325MG TAB) 650 mg Q4H PRN PO MILD PAIN (1-3) 04/26/24 01:00 05/26/24 00:59 04/26/24 07:59 650 MG Acetaminophen (TYLenol 325MG TAB) 650 mg Q6H PRN PO TEMPERATURE GREATER THAN 101.5 04/26/24 01:00 05/26/24 00:59 Azithromycin 250 ml @ 250 mls/hr ONCE IVPB 04/26/24 00:00 05/06/24 00:00 04/26/24 02:34 250 MLS/HR Enoxaparin Sodium (Lovenox) 40 mg DAILY SQ 04/26/24 09:00 05/26/24 08:59 04/26/24 07:59 40 MG Famotidine (Pepcid 20mg Tab) 20 mg DAILY PO 04/26/24 09:00 05/26/24 08:59 04/26/24 07:58 20 MG Insulin Human Regular (humuLIN R 100 UNIT/ML 3ML) INSULIN SLIDING SCAL... ACHS SQ 04/26/24 07:30 05/26/24 07:29 04/26/24 08:04 4 UNIT Lactated Ringer's 1,000 ml @ 100 mls/hr Q10H IV 04/26/24 01:00 05/26/24 00:59 04/26/24 02:34 100 MLS/HR Magnesium Sulfate 50 ml @ 0 mls/hr PROTOCOL PRN IV hypomagnesemia 04/26/24 01:00 05/26/24 00:59 Morphine Sulfate (morPHINE 2MG SYG) 2 mg Q4H PRN IV SEVERE PAIN (7-10) 04/26/24 01:30 05/03/24 01:29 Norepinephrine 250 ml @ 0 mls/hr PROTOCOL IV 04/26/24 00:00 05/26/24 00:00 04/26/24 08:56 78.75 MLS/HR Ondansetron HCl (zoFRAN 4MG INJ) 4 mg Q6H PRN IV NAUSEA/VOMITING 04/26/24 01:00 05/26/24 00:59 Piperacillin Sod/ Tazobactam Sod 50 ml @ 12.5 mls/hr ZOSY8 IV 04/26/24 05:00 05/06/24 04:59 04/26/24 05:22 12.5 MLS/HR Potassium Chloride 100 ml @ 100 mls/hr AD PRN IV POTASSIUM PROTOCOL 04/26/24 01:00 05/26/24 00:59 04/26/24 06:39 100 MLS/HR Potassium Chloride (K-Dur/Klor-Con 20meq) 20 meq AD PRN PO POTASSIUM PROTOCOL 04/26/24 01:00 05/26/24 00:59 Potassium Chloride (KCl 10% Elixir 20meq/15ml) 20 meq AD PRN PO POTASSIUM PROTOCOL 04/26/24 01:00 05/26/24 00:59 04/26/24 06:39 20 MEQ Vancomycin HCl 250 ml @ 125 mls/hr Q12H IV 04/26/24 11:30 05/06/24 11:29 Vancomycin HCl (Vancomycin Protocol) 1 each AD IV 04/26/24 07:00 05/10/24 06:59 DIAGNOSTICS / RADIOLOGY: [place] [id number] [address] IMAGING REPORT Signed PATIENT: CLARK SOLIS MR#: [id number] : 1965 SEX: F AGE: 58 LOCATION: [facility] ORDER 2231 STATUS: ADM IN REPORT#: [id number] SERVICE 2228 REASON: sepsis ORDERING PHYSICIAN: ROMMEL HEAD MD PROCEDURE: CXR1VW - CHEST 1VW CHEST 1VW REASON: sepsis COMPARISON: None FINDINGS: Single view of the chest was obtained. Lungs are clear. Heart size is normal. There is no pulmonary vascular congestion. Mediastinum and bony thorax appear unremarkable. IMPRESSION: 1. Normal single view chest x-ray. DICTATED BY: SHWETA MARCIAL MD DATE: 04/26/24 0851 ELECTRONICALLY SIGNED BY: SHWETA MARCIAL MD DATE: 04/26/24 0854 [place] [address] IMAGING REPORT Signed PATIENT: CLARK SOLIS MR#: [id number] : 1965 SEX: F AGE: 58 LOCATION: [facility] ORDER 0001 STATUS: ADM IN REPORT#: [id number] SERVICE 2358 REASON: Left flank tenderness Evaulate pyeloneprhitis , intra abdominal abscess ORDERING PHYSICIAN: ROMMEL HEAD MD PROCEDURE: ABD PEL WO - CT ABDOMEN/PELVIS W/O CONTRAST CT ABDOMEN/PELVIS W/O CONTRAST REASON: Left flank tenderness Evaulate pyeloneprhitis , intra abdominal abscess COMPARISON: None. FINDINGS: Lung bases are clear. There are no focal liver lesions. The liver does not appear enlarged.. Spleen and pancreas appear unremarkable. There has been a previous cholecystectomy. There is a Segovia catheter present in urinary bladder. There is some air bubbles present within the nondistended bladder as well. There is a single small air bubble and a middle pole calyx of the left kidney. The left kidney appears otherwise unremarkable. There is no evidence of mass or stone in either kidney. There is no hydronephrosis. There are no perinephric inflammatory changes. The air bubble appears most likely a result of air in the bladder from either emphysematous cystitis or instrumentation there is no inflammation to suggest the emphysematous pyelonephritis. Bowel loops appear unremarkable. There is no CT evidence of acute appendicitis. There is no evidence of free fluid or intraperitoneal air. There are no focal fluid collections. Aorta and retroperitoneum appear normal as do pelvic soft tissue structures. The anterior abdominal wall is intact. Osseous structures appear unremarkable. IMPRESSION: 1. Single air bubble present in an otherwise normal-appearing left kidney, this appears most consistent with air refluxing into the kidney from the urinary bladder, emphysematous pyelonephritis less likely as there are no secondary signs such as perinephric inflammation. 2. Kidneys appear otherwise unremarkable. 3. There is a small amount of air present in a nondistended urinary bladder, there is a Segovia catheter in position, the air could represent emphysematous cystitis or be secondary to instrumentation. 4. Absent gallbladder, otherwise unremarkable exam. CT was performed with one or more following dose reduction techniques: automated exposure control, adjustment of the mA and kv according to patient's size, or use of a iterative reconstruction technique. DICTATED BY: SHWETA MARCIAL MD DATE: 04/26/24914 ELECTRONICALLY SIGNED BY: SHWETA MARCIAL MD DATE: 04/26/24920 ASSESSMENT: Septic Shock - POA Hypotension requiring vasopressor (Levophed) support - POA Elevated lactic acid - POA Neutropenia - POA Diabetes mellitus type II - POA Hypertension - POA PLAN: Septic Shock - POA Hypotension requiring vasopressor (Levophed) support - POA Elevated lactic acid - POA Neutropenia - POA - fluid resuscitation - received 4L in total - Zosyn - Vancomycin - Azithromycin - Check procalcitonin - recheck lactic acid in the a.m. - continue vasopressor support with Levophed - continue to try to wean off - recheck labs in the am - monitor platelets and possibly stop Lovenox and order HIT panel Diabetes mellitus type II - POA - check hemoglobin A1c in the am - glucometer checks a.c. and HS - 1800 ADA diet - Humulin R sliding scale one Hypertension - POA - avoid antihypertensive medications at this time due to hypotension GI prophy - famotidine 20 mg PO QD DTV prophy - Lovenox 40 mg subQ QD Will continue to follow recommendations per critical care team Will continue on telemetry monitoring ATTESTATION BY PHYSICIAN I have seen and examined the patient. I reviewed the documentation, medical decision making, and treatment plan as noted by the resident provider above. I agree with the findings and plan of care. Patrice Nazario MD, PRIYA N Apr 26, 2024 09:22
--- NOTE | 2024-04-26 09:24 | NUR ---
[facility] NASAL CX COLLECTED AND SENT TO LAB/LABELED
--- NOTE | 2024-04-26 10:12 | NUR ---
BED ASSIGNMENT: BED [id number] ASSIGNED BUT NOT CLEANED YET PER EMBROIDERY WORKER RIZWANA ALONSO
--- NOTE | 2024-04-26 11:06 | NUR ---
ATTEMPTED TO CALL REPORT TO ICU BUT NO ANSWER AT THIS TIME.
[2024-04-26] MEDS: VANCOMYCIN 1G/250ML KIT 250 ML IV SCH (11:11)
--- NOTE | 2024-04-26 14:53 | PRN ---
This is a procedure note. Procedure performed: 1. Central line insertion. 2. Intraoperative Ultrasound. Site: Right internal Jugular vein. Diagnosis: Septic shock Description of procedure: Consent obtained. Hand hygiene. Time out done. Chlorhexidine was used to prepare the skin. Intraoperative US guidance was used during the procedure to localize vein and confirm placement of guidewire inside the vein prior to dilatation using sterile sheath to cover transducer to ensure sterility at all times. Regular 7fr 16 cm triple lumen inserted with Seldinger technique on site specified above. Line secured at the hub. Patient tolerated procedure well. No immediate complications. Post procedure Chest x ray was obtained, SVC in distal SVC, no pneumothorax. Okay to use CVC for use. KB FERNANDEZ [employer] Apr 26, 2024 14:53
[2024-04-26] MEDS: MAGNESIUM 2GM PREMIX 50ML 50 ML IV PRN (14:59)
[2024-04-26] MEDS: PoTASSium chloRIDE 20MEQ ER 20 MEQ ERTAB PO PRN (14:59)
--- NOTE | 2024-04-26 14:59 | HMCIMG ---
CHEST 1VW REASON: Central line placement COMPARISON: 04/25/2024 FINDINGS: There is mild cardiomegaly. There is mild central vascular congestion. There is a right IJ central line with tip at atrial caval junction. IMPRESSION: 1. Mild cardiomegaly with mild pulmonary vascular congestion. 2. Right IJ central line with tip at the atrial caval junction.
[2024-04-26] MEDS ORDERED: GLIP1TAB6 PO (15:13)
[2024-04-26] MEDS ORDERED: CHOL400T4 PO (15:13)
[2024-04-26] MEDS ORDERED: ATOR10TA69 PO (15:13)
[2024-04-26] MEDS ORDERED: EMPA1TAB PO (15:13)
[2024-04-26] MEDS ORDERED: PIOG15TA66 PO (15:13)
[2024-04-26] MEDS ORDERED: LISI10TA24 PO (15:13)
[2024-04-27] VITALS (100 sets, daily range): BP systolic 80–165; BP diastolic 34–104; PULSE 63–92; RESP 16–39; TEMP 97.8–98.9; O2SAT 95–97
[2024-04-27] MEDS: NOREPINEPHRINE BITARTRATE 32 MG in 0.9% NACL 250ML 250 ML IV PRN (02:00)
[2024-04-27 04:10] LABS: BASOPHILS # (AUTO) 0.08 K/uL (0.00-0.20); BASOPHILS % (AUTO) 0.3 % (0.0-5.0); EOSINOPHILS # (AUTO) 0.03 K/uL (0.00-0.70); EOSINOPHILS % (AUTO) 0.1 % (0.0-8.0); HEMATOCRIT 37.2 % (36-48); IMMATURE GRANULOCYTE ABSOLUTE 1.74 K/uL (0-1); LYMPHOCYTES # (AUTO) 1.2 K/uL (1.0-4.8); LYMPHOCYTES % (AUTO) 3.8 % (21.0-51.0); MEAN CORPUSCULAR HEMOGLOBIN 30.2 pg (27.0-33.0); MEAN CORPUSCULAR HGB CONC 33.3 g/dL (32.0-36.0); MEAN CORPUSCULAR VOLUME 90.7 fL (79-99); MONOCYTES # (AUTO) 1.4 K/uL (0.1-1.0); MONOCYTES % (AUTO) 4.5 % (3.0-13.0); NEUTROPHILS # (AUTO) 26.9 K/uL (1.8-7.7); NEUTROPHILS % (AUTO) 85.8 % (40.0-77.0); PLATELET COUNT (AUTO) 69 K/uL (130-400); RED CELL DISTRIBUTION WIDTH 15.5 % (11.0-15.5)
[2024-04-27 04:11] LABS: WHITE BLOOD COUNT (AUTO) 31.4 K/uL (4.8-10.8)
[2024-04-27 04:23] LABS: CREATININE 0.6 mg/dL (0.5-1.0); MAGNESIUM 1.9 mg/dL (1.80-2.40); POTASSIUM 3.6 mmol/L (3.5-5.1)
--- NOTE | 2024-04-27 09:13 | PN ---
[facility] PROGRESS NOTE Date of Service: Apr 27, 2024 Time of Service: : SUBJECTIVE: 04/26 - patient is 58 year old female seen at bedside afebrile, HR 80, BP115/60, tachypneic on 4L nasal cannula. Patient complains of chills and feeling unwell. She continues be on Levophed and triple antibiotics - Vancomycin, Zosyn, Azithromycin. Remarkable labs: white count increased significantly from 3.5 to 35.2, platelets decreased significantly from 161K to 63K. Sodium 146, potassium 2.7, BUN and creatinine within normal range. Lactic acid trending down from 3.72 to 2.7, ABG pH 7.458, CO2 27, O2 59.9, HCO3 18.8, magnesium 1.3, procalcitonin elevated 1.16. BNP and troponins within normal range. CT abdomen/pelvis showed single air bubble in normal appearing left kidney, c onsistent with air refluxing into the kidney from the urinary bladder. Kidneys appear normal otherwise. A small amount of air is present in a nondistended urinary bladder there is a Segovia catheter in position, the air could represent emphysematous cystitis or be secondary to instrumentation. Gallbladder is absent. Potassium protocol initiated. If platelets continue to drop will consider ordering HIT panel and possibly holding Lovenox. Patient is being followed by critical care. We will continue to medically manage and follow recommendations. 04/27 - patient seen at bedside, afebrile heart rate 82, tachypneic on 3L nasal cannula, BP 86/39. Patient appears more comfortable but states she was unable to sleep due to CPAP machine and anxiety. Remarkable labs: white count trending down from 35.2 to 31.4, platelets up from 63K to 69K. Sodium 146, calcium 7.7, magnesium 1.9, porcalcitonin 20.92, BUN and creatinine within normal range. Patient remains on vancomycin, zosyn, and azithromycin. Patient on Levophed and will continue to try to wean off. Patient had a central line placed on the right yesterday and tolerated the procedure well. Lovenox held due to low platelets. Will continue to monitor and medically manage and follow recommendations per critical care team. REVIEW OF SYSTEMS CONSTITUTIONAL: Complains of fevers, chills, denies night sweats. No unintentional weight loss reported. NEUROLOGICAL: Denies headache, amaurosis fugax, motor weakness, sensory deficit, vertigo/spinning sensation, gait abnormalities, or tremors. ENT: No hearing loss, otalgia, otorrhea, rhinitis, rhinorrhea, hoarseness, or sore throat. CARDIOVASCULAR: Denies any exertional angina, dyspnea on exertion, orthopnea, paroxysmal nocturnal dyspnea, palpitations, life-threatening arrhythmias, claudication. PULMONARY: Denies any shortness of breath, cough, phlegm/sputum, hemoptysis, pleuritic chest pain. SLEEP: Denies morning headaches, daytime somnolence or napping. Denies d ifficulty falling asleep, staying asleep, waking from sleep. Denies knowledge of snoring. GASTROINTESTINAL: Denies any type of dysphagia to either liquids or solids. Denies nausea, vomiting, pyrosis, early satiety, abdominal pain, diarrhea, constipation, or changes in stool consistency or caliber. Denies coffee-ground emesis, hematemesis, hematochezia, or melanotic stools. GENITOURINARY: Denies frequency, urgency, nocturia, hematuria or incontinence (Storage/Irritative symptoms.) Low urinary stream, straining to void, urinary intermittency or hesitancy, splitting of the voiding stream, terminal dribbling. ENDOCRINOLOGIC: Denies polyuria, polydipsia, polyphagia or heat/cold intolerances. HEMATOLOGIC: Denies thrombophilia/previous clots, or coagulopathy/bleeding disorders. ONCOLOGIC: Denies personal history of malignancy. DERMATOLOGIC: Denies rashes or pruritus. PSYCHIATRIC: Denies any suicidal or homicidal ideation. Denies hallucinations. PHYSICAL EXAM GENERAL APPEARANCE: The patient is awake, alert, and oriented, in no acute cardiopulmonary distress. NEUROLOGICAL: Cranial nerves II-XII grossly intact. Motor is 5/5 in bilateral upper and lower extremities proximal to distal. No sensory deficits. HEENT: Face is symmetric. Pupils are equal and reactive. Extraocular movements are intact. NECK: Supple. No JVD. No thyromegaly. No submental, submandibular, pre- /postauricular, occipital or supraclavicular lymphadenopathy. CHEST: Normal chest expansion. No Telemetry. LUNGS: Absence of any rales, positive for rhonchi Negative for any wheezing. CARDIOVASCULAR: Regular. S1 and S2 normal. No appreciable rubs, murmurs or gallops. ABDOMEN: Soft, nontender, and nondistended. There is no rebound, voluntary guarding, or rigidity. : Deferred. No Segovia. EXTREMITIES: Non-edematous and not cyanotic. No clubbing. Good capillary refill. SKIN: No skin breakdown. Vital Signs (last 8hr) Date Time Temp Pulse Resp B/P (MAP) Pulse Ox O2 Delivery O2 Flow Rate FiO2 04/27/24 08:00 95 Nasal Cannula* 3 32 04/27/24 07:04 80 18 N/Cannula Low lpm 1.0 04/27/24 05:48 69 26 145/73 100 Nasal Cannula 3.0 04/27/24 05:33 71 25 135/73 94 Nasal Cannula 3.0 04/27/24 05:18 79 27 130/64 92 Nasal Cannula 3.0 04/27/24 05:03 79 22 130/70 96 Nasal Cannula 3.0 04/27/24 04:48 98.2 67 23 126/68 95 Nasal Cannula 3.0 04/27/24 04:33 69 25 109/61 93 Nasal Cannula 3.0 04/27/24 04:18 76 22 110/56 93 Nasal Cannula 3.0 04/27/24 04:03 76 22 126/65 93 Nasal Cannula 3.0 04/27/24 04:00 95 Nasal Cannula* 3 32 04/27/24 03:48 70 22 130/60 94 Nasal Cannula 3.0 04/27/24 03:33 77 27 118/54 93 Nasal Cannula 3.0 04/27/24 03:18 74 22 111/57 94 Nasal Cannula 3.0 04/27/24 03:08 65 26 139/73 92 Nasal Cannula 3.0 04/27/24 03:03 70 30 165/78 87 Nasal Cannula 3.0 04/27/24 02:48 77 27 144/70 90 CPAP 24 04/27/24 02:33 76 31 132/63 93 CPAP 24 04/27/24 02:18 74 23 120/68 90 CPAP 24 04/27/24 02:03 73 22 112/58 91 CPAP 24 04/27/24 01:48 77 23 111/59 91 CPAP 24 04/27/24 01:33 72 23 133/62 92 CPAP 24 11/14/24 01:18 63 25 136/62 92 CPAP 24 LABS: Laboratory: Test 04/27/24 03:40 04/26/24 20:56 04/26/24 07:32 04/26/24 05:37 Range/Units White Blood Count 31.4 *H 4.8-10.8 K/uL Red Blood Count 4.10 4.00-5.50 MIL/uL Hemoglobin 12.4 12.0-16.0 g/dL Hematocrit 37.2 36-48 % Mean Corpuscular Volume 90.7 79-99 fL Mean Corpuscular Hemoglobin 30.2 27.0-33.0 pg Mean Corpuscular Hemoglobin Concent 33.3 32.0-36.0 g/dL Red Cell Distribution Width 15.5 11.0-15.5 % Platelet Count 69 L 130-400 K/uL Mean Platelet Volume 10.9 H 7.5-10.5 fL Immature Granulocyte % (Auto) 5.5 H 0-1 % Neutrophils (%) (Auto) 85.8 H 40.0-77.0 % Lymphocytes (%) (Auto) 3.8 L 21.0-51.0 % Monocytes (%) (Auto) 4.5 3.0-13.0 % Eosinophils (%) (Auto) 0.1 0.0-8.0 % Basophils (%) (Auto) 0.3 0.0-5.0 % Neutrophils # (Auto) 26.9 H 1.8-7.7 K/uL Lymphocytes # (Auto) 1.2 1.0-4.8 K/uL Monocytes # (Auto) 1.4 H 0.1-1.0 K/uL Eosinophils # (Auto) 0.03 0.00-0.70 K/uL Basophils # (Auto) 0.08 0.00-0.20 K/uL Absolute Immature Granulocyte (auto 1.74 H 0-1 K/uL Nucleated Red Blood Cells 0.0 0.0-0.19 % Sodium Level 146 H 136-145 mmol/L Potassium Level 3.6 3.5-5.1 mmol/L Chloride Level 113 H 101-111 mmol/L Carbon Dioxide Level 24 21-32 mmol/L Blood Urea Nitrogen 12 7-18 mg/dL Creatinine 0.6 0.5-1.0 mg/dL Glomerular Filtration Rate Calc 103 >90 mL/min Random Glucose 108 H 70-105 mg/dL Total Calcium 7.7 L 8.5-10.1 mg/dL Magnesium Level 1.90 1.80-2.40 mg/dL Procalcitonin 20.92 H 0.05-0.5 ng/mL Whole Blood Glucose 147 H 70-110 MG/DL Prothrombin Time 15.1 H 9.6-11.6 SEC Prothromb Time International Ratio 1.44 H 0.85-1.15 Activated Partial Thromboplast Time 40.3 H 26.3-35.5 SEC Segmented Neutrophils % 69 40-70 % Band Neutrophils % 25 H 0-2 % Lymphocytes % (Manual) 1 L 22-44 % Monocytes % (Manual) 2 2-9 % Metamyelocytes % 3 H 0-0 % Differential Comment MANUAL DIFFERENTIAL White Cell Morphology Comment TOXIC GRANULATION 1+ Platelet Morphology Comment DECREASED Red Blood Cell Morphology ANISO 1+ Hemoglobin A1c 5.8 4.0-6.0 % Estimated Average Glucose (eAG) 120 70-126 mg/dL Lactic Acid Level 2.7 H 0.8-2.5 mmol/L Phosphorus Level 1.4 L 2.5-4.9 mg/dL Test 04/26/24 00:10 04/25/24 22:45 04/25/24 22:37 Range/Units Blood Gas Specimen Type Arterial Arterial Blood pH 7.458 H 7.350-7.450 Arterial Blood Partial Pressure CO2 27 L 32-45 mmHg Arterial Blood Partial Pressure O2 59.9 L 83.0-108.0 mmHg Arterial Blood HCO3 18.8 L 21.0-28.0 mmol/L Arterial Blood Oxygen Saturation 92.3 L 94.0-98.0 % Arterial Blood Base Excess -3.4 L -2.0-3.0 mmol/L Hemoglobin (Blood Gas) 14.5 12.0-16.0 g/dL Sodium (Blood Gas) 140 136-145 MMOL/L Bedside Potassium (Blood Gas) 3.2 L 3.4-4.5 MMOL/L Bedside Chloride (Blood Gas) 105 98-107 MMOL/L Bedside Glucose (Blood Gas) 126 H 65-95 MG/DL Bedside Ionized Calcium (Blood Gas) 1.13 L 1.15-1.33 MMOL/L Bedside Lactic Acid (Blood Gas) 3.72 *H 0.36-0.75 MMOL/L Blood Gas Temperature 37.0 35.5-37.0 CELSIUS Blood Gas Vent Mode RA ROOM AIR FiO2 21.0 % Blood Gas Specimen Comment LR Total Creatine Kinase 60 21-232 U/L Troponin I High Sensitivity 31 4-50 ng/L B-Type Natriuretic Peptide 42 0-100 pg/mL Influenza Type A Antigen Negative For Type A NEGATIVE Influenza Type B Antigen Negative For Type B NEGATIVE SARS-CoV-2 Antigen (Rapid) PRESUMPTIVE NEGATIVE NEGATIVE Urine Color LIGHT-YELLOW YELLOW Urine Appearance CLEAR CLEAR Urine pH 5.5 5.0-8.0 Urine Specific [place] 1.032 H 1.001-1.031 Urine Protein 10 H NEGATIVE mg/dL Urine Glucose (UA) >=1000 H NEGATIVE mg/dL Urine Ketones NEGATIVE NEGATIVE mg/dL Urine Occult Blood +- (TRACE) H NEGATIVE Urine Nitrate NEGATIVE NEGATIVE Urine Bilirubin NEGATIVE NEGATIVE mg/dL Urine Urobilinogen 0.2 0.2-1.0 mg/dL Urine Leukocyte Esterase NEGATIVE NEGATIVE Sandor/uL Urine RBC 2-5 H 0-1 /HPF Urine WBC 6-10 H 0-1 /HPF Urine Squamous Epithelial Cells FEW 0-2 /HPF Urine Bacteria None None Seen /HPF Current Medications Medications (Trade) Dose Ordered Sig/Karthik Route PRN Reason Start Time Stop Time Status Last Admin Dose Admin Acetaminophen (TYLenol 325MG TAB) 650 mg Q4H PRN PO MILD PAIN (1-3) 04/26/24 01:00 05/26/24 00:59 04/26/24 21:07 650 MG Acetaminophen (TYLenol 325MG TAB) 650 mg Q6H PRN PO TEMPERATURE GREATER THAN 101.5 04/26/24 01:00 05/26/24 00:59 Azithromycin 250 ml @ 250 mls/hr ONCE IVPB 04/26/24 00:00 05/06/24 00:00 04/27/24 02:02 250 MLS/HR Enoxaparin Sodium (Lovenox) 40 mg DAILY SQ 04/26/24 09:00 05/26/24 08:59 04/26/24 07:59 40 MG Famotidine (Pepcid 20mg Tab) 20 mg DAILY PO 04/26/24 09:00 05/26/24 08:59 04/27/24 08:59 20 MG Insulin Human Regular (humuLIN R 100 UNIT/ML 3ML) INSULIN SLIDING SCAL... ACHS SQ 04/26/24 07:30 05/26/24 07:29 04/26/24 08:04 4 UNIT Lactated Ringer's 1,000 ml @ 100 mls/hr Q10H IV 04/26/24 01:00 05/26/24 00:59 04/27/24 08:59 100 MLS/HR Magnesium Sulfate 50 ml @ 0 mls/hr PROTOCOL PRN IV hypomagnesemia 04/26/24 01:00 05/26/24 00:59 04/26/24 14:59 25 MLS/HR Morphine Sulfate (morPHINE 2MG SYG) 2 mg Q4H PRN IV SEVERE PAIN (7-10) 04/26/24 01:30 05/03/24 01:29 Norepinephrine 250 ml @ 0 mls/hr PROTOCOL IV 04/26/24 00:00 04/27/24 01:22 DC 04/26/24 21:11 58 MLS/HR Norepinephrine Bitartrate 32 mg/ Sodium Chloride 250 ml @ 0 mls/hr Q0M PRN IV ADMINISTER FOR SBP/DBP> 04/27/24 01:30 05/27/24 01:29 04/27/24 02:00 27 MLS/HR Ondansetron HCl (zoFRAN 4MG INJ) 4 mg Q6H PRN IV NAUSEA/VOMITING 04/26/24 01:00 05/26/24 00:59 Piperacillin Sod/ Tazobactam Sod 50 ml @ 12.5 mls/hr ZOSY8 IV 04/26/24 05:00 05/06/24 04:59 04/27/24 05:28 12.5 MLS/HR Potassium Chloride 100 ml @ 100 mls/hr AD PRN IV POTASSIUM PROTOCOL 04/26/24 01:00 05/26/24 00:59 04/26/24 06:39 100 MLS/HR Potassium Chloride (K-Dur/Klor-Con 20meq) 20 meq AD PRN PO POTASSIUM PROTOCOL 04/26/24 01:00 05/26/24 00:59 04/26/24 20:52 20 MEQ Potassium Chloride (KCl 10% Elixir 20meq/15ml) 20 meq AD PRN PO POTASSIUM PROTOCOL 04/26/24 01:00 05/26/24 00:59 04/26/24 06:39 20 MEQ Vancomycin HCl 250 ml @ 125 mls/hr Q12H IV 04/26/24 11:30 05/06/24 11:29 04/27/24 00:20 125 MLS/HR Vancomycin HCl (Vancomycin Protocol) 1 each AD IV 04/26/24 07:00 05/10/24 06:59 DIAGNOSTICS / RADIOLOGY: [facility] [address] [place] [address] IMAGING REPORT Signed PATIENT: CLARK SOLIS MR#: [id number] : 1965 SEX: F AGE: 58 LOCATION: 2BH ORDER 29 STATUS: ADM IN REPORT#: [id number] SERVICE 28 REASON: Central line placement ORDERING PHYSICIAN: KB FERNANDEZ CNP PROCEDURE: CXR1VW - CHEST 1VW CHEST 1VW REASON: Central line placement COMPARISON: 04/25/2024 FINDINGS: There is mild cardiomegaly. There is mild central vascular congestion. There is a right IJ central line with tip at atrial caval junction. IMPRESSION: 1. Mild cardiomegaly with mild pulmonary vascular congestion. 2. Right IJ central line with tip at the atrial caval junction. DICTATED BY: SHWETA MARCIAL MD DATE: 04/26/241455 ELECTRONICALLY SIGNED BY: SHWETA MARCIAL MD DATE: 04/26/241458 ASSESSMENT: Septic Shock - POA Hypotension requiring vasopressor (Levophed) support - POA Elevated lactic acid - POA Neutropenia - POA Diabetes mellitus type II - POA Hypertension - POA PLAN: Septic Shock - POA Hypotension requiring vasopressor (Levophed) support - POA Elevated lactic acid - POA Neutropenia - POA - fluid resuscitation - received 4L in total - Zosyn - Vancomycin - Azithromycin - Check procalcitonin - recheck lactic acid in the a.m. - continue vasopressor support with Levophed - continue to try to wean off - recheck labs in the am - monitor platelets and stop Lovenox Diabetes mellitus type II - POA - check hemoglobin A1c in the am - glucometer checks a.c. and HS - 1800 ADA diet - Humulin R sliding scale one Hypertension - POA - avoid antihypertensive medications at this time due to hypotension GI prophy - famotidine 20 mg PO QD DTV prophy - Lovenox 40 mg subQ QD - will hold for now Will continue to follow recommendations per critical care team Will continue on telemetry monitoring ATTESTATION BY PHYSICIAN I have seen and examined the patient. I reviewed the documentation, medical decision making, and treatment plan as noted by the resident provider above. I agree with the findings and plan of care. Patrice Nazario MD, PRIYA N Apr 27, 2024 09:13
--- NOTE | 2024-04-27 12:37 | NUR ---
as per [facility] pharmacist give one dose of vancomycin now and another at 1400 pm.
--- NOTE | 2024-04-27 12:38 | NUR ---
hold lovenox today as per Sagar [employer] because plateletes are 69.
[2024-04-27] MEDS ORDERED: PHARMACY COMMUNICATION MISC SCH (13:00)
[2024-04-27] MEDS ORDERED: COMPOUND IV MISC 1 EACH IVSOLN MISC PRN (13:30)
[2024-04-27] MEDS ORDERED: VANCOMYCIN 1G/250ML KIT 250 ML IV SCH (14:00)
[2024-04-27] MEDS: MEROPENEM 1 GM in 0.9%NACL 100ML 100 ML IVPB SCH (14:33)
[2024-04-27] MEDS ORDERED: VASOpressin 20 UNITS/ML 1ML Vi 40 UNITS in 0.9%NACL 50ML 40 ML IV PRN (18:00)
--- NOTE | 2024-04-27 19:10 | PN ---
[facility] PROGRESS NOTE Date Patient Seen: Apr 27, 2024 Time of Visit: 19:09 Supervising Physician: Dr. Alvarado Consulting Physician: [facility] Outpatient Specialists: JULIO CESAR Inpatient Consults: Dr. Alvarado PROBLEM LIST: Shock state- shock Gram negative bacteremia Gram negative cystitis Community acquired pneumonia Acute hypoxic respiratory failure, POA Left flank pain Lactic acidosis, POA DM type 2, with hyperglycemia, POA Morbid obesity BMI 43 Suspect OHS/ ADAL- undiagnosed and untreated PLAN: Continue to wean of Levophed Give IVF with bolus Sent MRSA/flu a and B swab again Follow up with CT scan of the abdomen Continue current antibiotic Zosyn, discontinue vancomycin if MRSA is negative. Continue to follow up with blood culture and urine culture Bowel regimen INTERVAL HISTORY: 04/26 patient is awake alert and oriented x3 lying down in bed not in acute distress. Patient is on 4 L nasal cannula saturation oxygen 100%. We we will wean oxygen as tolerated to keep sats greater 92%. Given BMI of 43 and bicarb was 28 in admission, patient might have OHS/ADAL. We can place a CPAP at night as tolerated. Otherwise lab this morning with sodium 146 this is up from 140 to potassium is 2.7. Chloride is 112. Lactic acid is down to 2.7 procalcitonin is 1.16. Check MRSA swab so we can discontinue vancomycin if negative. Otherwise continue Zosyn. CT scan of the abdomen is showing Single air bubble in the left kidney, no perinephric fat stranding, UA is with negative nitrites and leukocyte esterase but has WBC of 6-10, non bacteria. Continue to follow cultures. Continue to wean Levophed as tolerated. Keep map greater than 65. Keep in ICU given vasopressor requirement. 04/27 patient is awake alert and oriented x3 up in the chair not in acute distress. She is complaining of headache, she is used to drinking coffee every day, so we will give her Fioricet p.r.n.. She was weaned off of the Levophed drip this morning but he had to be restarted given that her blood pressure dropped again. Otherwise she is growing Gram-negative rods in the blood and in the urine WBC is down to 31 from 35 but given that she is remaining on vasopressors and thrombocytopenic, we will up the antibiotic coverage to meropenem for concern of ESBL, discontinue Zosyn. We can discontinue vancomycin as well. We can wean down abx when sensitivity is available. Keep in ICU if remains on vasopressors. REVIEW OF SYSTEMS: 12 point ROS reviewed with patient. Pertinent positives mentioned above. Otherwise negative. PHYSICAL EXAM: GENERAL: alert, weak, awake oriented x 3 HEENT: EOMI, Sclera non icteric, moist mucosa NECK: Supple, no JVD, trachea midline LUNGS: Coarse bilateral lung sounds, tachypneic HEART: Regular rate and rhythm. Normal S1 and S2, without murmurs ABD: Large habitus EXT: No clubbing cyanosis or edema NEURO: Alert and oriented to person, follows commands Vital Signs (last 8hr) Date Time Temp Pulse Resp B/P (MAP) Pulse Ox O2 Delivery O2 Flow Rate FiO2 04/27/24 18:15 83 39 125/58 (80) 04/27/24 18:00 86 32 128/56 (80) 04/27/24 17:48 81 36 146/57 (86) 73 04/27/24 17:45 81 36 146/57 (86) 73 04/27/24 17:30 74 32 127/59 (81) 93 04/27/24 17:18 81 32 132/55 (80) 95 04/27/24 17:18 81 32 132/55 (80) 95 04/27/24 16:45 87 33 124/104 (111) 92 04/27/24 16:30 75 28 107/45 (65) 97 04/27/24 16:15 72 29 112/52 (72) 97 04/27/24 16:00 81 31 112/77 (89) 100 04/27/24 15:45 66 33 110/46 (67) 92 04/27/24 15:30 64 29 120/63 (82) 99 04/27/24 15:18 76 26 98/49 (65) 96 04/27/24 15:15 76 26 98/49 (65) 96 04/27/24 15:00 68 25 106/52 (70) 97 04/27/24 15:00 96 Nasal Cannula* 3 32 04/27/24 14:45 77 26 104/53 (70) 96 04/27/24 14:33 77 26 84/43 (57) 96 04/27/24 14:30 77 26 104/50 (68) 96 04/27/24 14:15 72 25 107/54 (71) 98 04/27/24 14:00 75 20 108/43 (64) 98 04/27/24 13:45 72 27 100/52 (68) 98 04/27/24 13:30 75 24 105/53 (70) 98 04/27/24 13:15 72 23 80/34 (49) 99 04/27/24 13:05 82 16 141/95 (110) 94 04/27/24 12:34 73 17 101/70 (80) 97 04/27/24 12:15 72 25 100/52 (68) 100 04/27/24 12:13 95 Nasal Cannula* 3 32 04/27/24 12:00 79 22 100/50 (67) 98 04/27/24 11:45 71 29 122/63 (82) 100 04/27/24 11:30 73 19 117/59 (78) 96 04/27/24 11:15 75 22 120/61 (80) 95 LABS: Hematology Labs: Test 04/27/24 03:40 04/26/24 05:37 Range/Units White Blood Count 31.4 *H 4.8-10.8 K/uL Red Blood Count 4.10 4.00-5.50 MIL/uL Hemoglobin 12.4 12.0-16.0 g/dL Hematocrit 37.2 36-48 % Mean Corpuscular Volume 90.7 79-99 fL Mean Corpuscular Hemoglobin 30.2 27.0-33.0 pg Mean Corpuscular Hemoglobin Concent 33.3 32.0-36.0 g/dL Red Cell Distribution Width 15.5 11.0-15.5 % Platelet Count 69 L 130-400 K/uL Mean Platelet Volume 10.9 H 7.5-10.5 fL Immature Granulocyte % (Auto) 5.5 H 0-1 % Neutrophils (%) (Auto) 85.8 H 40.0-77.0 % Lymphocytes (%) (Auto) 3.8 L 21.0-51.0 % Monocytes (%) (Auto) 4.5 3.0-13.0 % Eosinophils (%) (Auto) 0.1 0.0-8.0 % Basophils (%) (Auto) 0.3 0.0-5.0 % Neutrophils # (Auto) 26.9 H 1.8-7.7 K/uL Lymphocytes # (Auto) 1.2 1.0-4.8 K/uL Monocytes # (Auto) 1.4 H 0.1-1.0 K/uL Eosinophils # (Auto) 0.03 0.00-0.70 K/uL Basophils # (Auto) 0.08 0.00-0.20 K/uL Absolute Immature Granulocyte (auto 1.74 H 0-1 K/uL Nucleated Red Blood Cells 0.0 0.0-0.19 % Segmented Neutrophils % 69 40-70 % Band Neutrophils % 25 H 0-2 % Lymphocytes % (Manual) 1 L 22-44 % Monocytes % (Manual) 2 2-9 % Metamyelocytes % 3 H 0-0 % Differential Comment MANUAL DIFFERENTIAL White Cell Morphology Comment TOXIC GRANULATION 1+ Platelet Morphology Comment DECREASED Red Blood Cell Morphology ANISO 1+ Chemistry Labs: Test 04/27/24 17:13 04/27/24 03:40 04/26/24 05:37 04/25/24 22:45 Range/Units Whole Blood Glucose 105 70-110 MG/DL Sodium Level 146 H 136-145 mmol/L Potassium Level 3.6 3.5-5.1 mmol/L Chloride Level 113 H 101-111 mmol/L Carbon Dioxide Level 24 21-32 mmol/L Blood Urea Nitrogen 12 7-18 mg/dL Creatinine 0.6 0.5-1.0 mg/dL Glomerular Filtration Rate Calc 103 >90 mL/min Random Glucose 108 H 70-105 mg/dL Total Calcium 7.7 L 8.5-10.1 mg/dL Magnesium Level 1.90 1.80-2.40 mg/dL Procalcitonin 20.92 H 0.05-0.5 ng/mL Hemoglobin A1c 5.8 4.0-6.0 % Estimated Average Glucose (eAG) 120 70-126 mg/dL Lactic Acid Level 2.7 H 0.8-2.5 mmol/L Phosphorus Level 1.4 L 2.5-4.9 mg/dL Total Creatine Kinase 60 21-232 U/L Troponin I High Sensitivity 31 4-50 ng/L B-Type Natriuretic Peptide 42 0-100 pg/mL Coagulation Labs: Test 04/26/24 07:32 Range/Units Prothrombin Time 15.1 H 9.6-11.6 SEC Prothromb Time International Ratio 1.44 H 0.85-1.15 Activated Partial Thromboplast Time 40.3 H 26.3-35.5 SEC DIAGNOSTICS / RADIOLOGY RESULTS: [ ] PLAN NEURO: Minimize central acting medications as possible. Fall Precautions. Well lighted room through the day and minimize interruptions through the night to prevent acute delirium. PULMONARY: Supplemental 02 as needed Titrate Fio2 to keep Spo2 > or = 90% DuoNebs and CPT as needed IS hourly while awake for pulmonary hygiene Out of bed to chair as tolerated VAP Bundle CARDIOVASCULAR: Follow hemodynamics. Titrate vasopressor to keep MAP >65 or systolic blood pressure >95mmHg DIPS: Levophed drip LINES: PIV, Segovia GI & NUTRITION: NPO for now Continue nutritional support Aspirations precautions Prokinetic agents and laxatives as needed KIDNEYS & ELECTROLYTES: Strict monitoring of intake and output Daily weights Avoid nephrotoxic agents Monitor electrolytes and replace as needed Goal urine output of 30mL/hr or 0.5mL/kg/hr ENDOCRINE: Maintain blood glucose between 100-180 at all times. Insulin sliding scale for blood glucose management INFECTIOUS DISEASE: Trend temperature. Dillard-culture if febrile. Micro: [ ] Antibiotics: Zosyn HEMATOLOGY & COAGULATION: Monitor H&H. Keep Hgb > 7 Transfuse 1 unit of PRBC for Hgb < 7 Transfuse 1 pack of platelets of platelets < 20, 000 Watch for any signs and symptoms of bleeding SKIN: Pressure ulcer prevention per facility protocol Rehab: PT/OT Prophylaxis: GI: PPI DVT: Bilateral SCDs, Lovenox Code Status: Full Resuscitation Disposition: ICU Other: Total patient care time exceeds 35 minutes excluding all procedures. KB FERNANDEZ [employer] Apr 27, 2024 19:10
[2024-04-28] VITALS (104 sets, daily range): BP systolic 74–152; BP diastolic 27–78; PULSE 57–93; RESP 14–37; TEMP 98–99.9; O2SAT 93–98
[2024-04-28 08:35] LABS: CREATININE 0.6 mg/dL (0.5-1.0); POTASSIUM 3.7 mmol/L (3.5-5.1)
[2024-04-28 08:52] LABS: HEMATOCRIT 37.3 % (36-48); MEAN CORPUSCULAR HEMOGLOBIN 30.4 pg (27.0-33.0); MEAN CORPUSCULAR HGB CONC 33.8 g/dL (32.0-36.0); MEAN CORPUSCULAR VOLUME 90.1 fL (79-99); RED BLOOD CELL COUNT(AUTO) 4.14 MIL/uL (4.00-5.50); RED CELL DISTRIBUTION WIDTH 15.4 % (11.0-15.5); WHITE BLOOD COUNT (AUTO) 23.7 K/uL (4.8-10.8)
--- NOTE | 2024-04-28 10:28 | PN ---
[facility] PROGRESS NOTE Date of Service: Apr 28, 2024 Time of Service: 09:59 SUBJECTIVE: 04/26 - patient is 58 year old female seen at bedside afebrile, HR 80, BP115/60, tachypneic on 4L nasal cannula. Patient complains of chills and feeling unwell. She continues be on Levophed and triple antibiotics - Vancomycin, Zosyn, Azithromycin. Remarkable labs: white count increased significantly from 3.5 to 35.2, platelets decreased significantly from 161K to 63K. Sodium 146, potassium 2.7, BUN and creatinine within normal range. Lactic acid trending down from 3.72 to 2.7, ABG pH 7.458, CO2 27, O2 59.9, HCO3 18.8, magnesium 1.3, procalcitonin elevated 1.16. BNP and troponins within normal range. CT abdomen/pelvis showed single air bubble in normal appearing left kidney, c onsistent with air refluxing into the kidney from the urinary bladder. Kidneys appear normal otherwise. A small amount of air is present in a nondistended urinary bladder there is a Segovia catheter in position, the air could represent emphysematous cystitis or be secondary to instrumentation. Gallbladder is absent. Potassium protocol initiated. If platelets continue to drop will consider ordering HIT panel and possibly holding Lovenox. Patient is being followed by critical care. We will continue to medically manage and follow recommendations. 04/27 - patient seen at bedside, afebrile heart rate 82, tachypneic on 3L nasal cannula, BP 86/39. Patient appears more comfortable but states she was unable to sleep due to CPAP machine and anxiety. Remarkable labs: white count trending down from 35.2 to 31.4, platelets up from 63K to 69K. Sodium 146, calcium 7.7, magnesium 1.9, procalcitonin 20.92, BUN and creatinine within normal range. Patient remains on vancomycin, zosyn, and azithromycin. Patient on Levophed and will continue to try to wean off. Patient had a central line placed on the right yesterday and tolerated the procedure well. Lovenox held due to low platelets. Will continue to monitor and medically manage and follow recommendations per critical care team. 04/28 - Patient seen at bedside accompanied by her daughter. She is comfortable, afebrile, on 3L nasal cannula. Patient nasal secretions negative for MRSA. Patient blood culture positive for e.coli. She is currently on Meropenem, no longer on vancomycin, Zosyn, and azithromycin. Remarkable labs: white count trending down from 31.4 to 23.7, platelets up from 69K to 72. chemistries within normal range. Patient was taken off Levophed yesterday but her blood pressure dropped and was placed on Levophed again. She remains on Levophed and will wean off. We will continue to monitor and medically manage and follow recommendations per critical care team. REVIEW OF SYSTEMS CONSTITUTIONAL: Complains of fevers, chills, denies night sweats. No unintentional weight loss reported. NEUROLOGICAL: Denies headache, amaurosis fugax, motor weakness, sensory deficit, vertigo/spinning sensation, gait abnormalities, or tremors. ENT: No hearing loss, otalgia, otorrhea, rhinitis, rhinorrhea, hoarseness, or sore throat. CARDIOVASCULAR: Denies any exertional angina, dyspnea on exertion, orthopnea, paroxysmal nocturnal dyspnea, palpitations, life-threatening arrhythmias, claudication. PULMONARY: Denies any shortness of breath, cough, phlegm/sputum, hemoptysis, pleuritic chest pain. SLEEP: Denies morning headaches, daytime somnolence or napping. Denies difficulty falling asleep, staying asleep, waking from sleep. Denies knowledge of snoring. GASTROINTESTINAL: Denies any type of dysphagia to either liquids or solids. Denies nausea, vomiting, pyrosis, early satiety, abdominal pain, diarrhea, constipation, or changes in stool consistency or caliber. Denies coffee-ground emesis, hematemesis, hematochezia, or melanotic stools. GENITOURINARY: Denies frequency, urgency, nocturia, hematuria or incontinence (Storage/Irritative symptoms.) Low urinary stream, straining to void, urinary intermittency or hesitancy, splitting of the voiding stream, terminal dribbling. ENDOCRINOLOGIC: Denies polyuria, polydipsia, polyphagia or heat/cold intolerances. HEMATOLOGIC: Denies thrombophilia/previous clots, or coagulopathy/bleeding disorders. ONCOLOGIC: Denies personal history of malignancy. DERMATOLOGIC: Denies rashes or pruritus. PSYCHIATRIC: Denies any suicidal or homicidal ideation. Denies hallucinations. PHYSICAL EXAM GENERAL APPEARANCE: The patient is awake, alert, and oriented, in no acute cardiopulmonary distress. NEUROLOGICAL: Cranial nerves II-XII grossly intact. Motor is 5/5 in bilateral upper and lower extremities proximal to distal. No sensory deficits. HEENT: Face is symmetric. Pupils are equal and reactive. Extraocular movements are intact. NECK: Supple. No JVD. No thyromegaly. No submental, submandibular, pre- /postauricular, occipital or supraclavicular lymphadenopathy. CHEST: Normal chest expansion. No Telemetry. LUNGS: Absence of any rales, positive for rhonchi Negative for any wheezing. CARDIOVASCULAR: Regular. S1 and S2 normal. No appreciable rubs, murmurs or g allops. ABDOMEN: Soft, nontender, and nondistended. There is no rebound, voluntary gua rding, or rigidity. : Deferred. No Segovia. EXTREMITIES: Non-edematous and not cyanotic. No clubbing. Good capillary refill. SKIN: No skin breakdown. Vital Signs (last 8hr) Date Time Temp Pulse Resp B/P (MAP) Pulse Ox O2 Delivery O2 Flow Rate FiO2 04/28/24 08:45 73 15 103/59 (74) 97 04/28/24 08:30 71 30 100/60 (73) 97 04/28/24 08:15 69 22 106/55 (72) 97 04/28/24 08:00 68 31 113/58 (76) 97 04/28/24 07:45 71 28 114/78 97 Nasal Cannula 3.0 04/28/24 07:45 71 28 114/78 (90) 97 04/28/24 07:30 70 20 91/48 97 Nasal Cannula 3.0 04/28/24 07:30 70 20 91/48 (62) 97 04/28/24 07:30 19 N/Cannula Low lpm 1.0 04/28/24 07:15 75 31 74/39 97 Nasal Cannula 3.0 04/28/24 07:15 75 31 74/39 (51) 97 04/28/24 05:48 69 24 100/44 95 Nasal Cannula 3.0 04/28/24 05:33 69 20 91/44 97 Nasal Cannula 3.0 04/28/24 05:18 68 21 100/45 98 Nasal Cannula 3.0 04/28/24 05:03 72 24 97/53 97 Nasal Cannula 3.0 04/28/24 04:48 71 20 103/46 97 Nasal Cannula 3.0 04/28/24 04:33 70 22 113/48 96 Nasal Cannula 3.0 04/28/24 04:18 98.1 71 22 97/48 95 Nasal Cannula 3.0 04/28/24 04:03 72 25 105/49 96 04/28/24 04:00 97 Nasal Cannula* 3 32 04/28/24 03:48 70 25 109/48 96 04/28/24 03:33 71 23 105/49 96 04/28/24 03:18 81 28 102/45 97 Nasal Cannula 04/28/24 03:03 84 26 121/55 97 Nasal Cannula 04/28/24 02:48 85 32 152/31 97 Nasal Cannula 04/28/24 02:33 87 33 126/68 93 Nasal Cannula 04/28/24 02:18 82 29 107/57 97 Nasal Cannula 04/28/24 02:03 77 28 107/55 99 Nasal Cannula LABS: Laboratory: Test 04/28/24 07:59 04/28/24 07:49 04/28/24 06:30 04/27/24 10:25 Range/Units White Blood Count 23.7 H 4.8-10.8 K/uL Red Blood Count 4.14 4.00-5.50 MIL/uL Hemoglobin 12.6 12.0-16.0 g/dL Hematocrit 37.3 36-48 % Mean Corpuscular Volume 90.1 79-99 fL Mean Corpuscular Hemoglobin 30.4 27.0-33.0 pg Mean Corpuscular Hemoglobin Concent 33.8 32.0-36.0 g/dL Red Cell Distribution Width 15.4 11.0-15.5 % Platelet Count 72 L 130-400 K/uL Mean Platelet Volume 11.2 H 7.5-10.5 fL Nucleated Red Blood Cells 0.0 0.0-0.19 % Sodium Level 143 136-145 mmol/L Potassium Level 3.7 3.5-5.1 mmol/L Chloride Level 107 101-111 mmol/L Carbon Dioxide Level 28 21-32 mmol/L Blood Urea Nitrogen 13 7-18 mg/dL Creatinine 0.6 0.5-1.0 mg/dL Glomerular Filtration Rate Calc 103 >90 mL/min Random Glucose 98 70-105 mg/dL Total Calcium 8.0 L 8.5-10.1 mg/dL Whole Blood Glucose 96 70-110 MG/DL Vancomycin Level Trough 6.6 L 10.0-20.0 UG/ML Test 04/27/24 03:40 Range/Units Immature Granulocyte % (Auto) 5.5 H 0-1 % Neutrophils (%) (Auto) 85.8 H 40.0-77.0 % Lymphocytes (%) (Auto) 3.8 L 21.0-51.0 % Monocytes (%) (Auto) 4.5 3.0-13.0 % Eosinophils (%) (Auto) 0.1 0.0-8.0 % Basophils (%) (Auto) 0.3 0.0-5.0 % Neutrophils # (Auto) 26.9 H 1.8-7.7 K/uL Lymphocytes # (Auto) 1.2 1.0-4.8 K/uL Monocytes # (Auto) 1.4 H 0.1-1.0 K/uL Eosinophils # (Auto) 0.03 0.00-0.70 K/uL Basophils # (Auto) 0.08 0.00-0.20 K/uL Absolute Immature Granulocyte (auto 1.74 H 0-1 K/uL Magnesium Level 1.90 1.80-2.40 mg/dL Procalcitonin 20.92 H 0.05-0.5 ng/mL Current Medications Medications (Trade) Dose Ordered Sig/Karthik Route PRN Reason Start Time Stop Time Status Last Admin Dose Admin Acetaminophen (TYLenol 325MG TAB) 650 mg Q4H PRN PO MILD PAIN (1-3) 04/26/24 01:00 05/26/24 00:59 04/28/24 02:49 650 MG Acetaminophen (TYLenol 325MG TAB) 650 mg Q6H PRN PO TEMPERATURE GREATER THAN 101.5 04/26/24 01:00 05/26/24 00:59 Acetaminophen/ Butalbital/ Caffeine (Nuzrmeve-Ckyistqbboydz-Pqsk Tb) 1 each BID PRN PO TENSION HEADACHE 04/27/24 13:30 05/27/24 13:29 Azithromycin 250 ml @ 250 mls/hr ONCE IVPB 04/26/24 00:00 04/28/24 06:39 DC 04/28/24 00:24 250 MLS/HR Enoxaparin Sodium (Lovenox) 40 mg DAILY SQ 04/26/24 09:00 05/26/24 08:59 04/26/24 07:59 40 MG Famotidine (Pepcid 20mg Tab) 20 mg DAILY PO 04/26/24 09:00 05/26/24 08:59 04/28/24 08:45 20 MG Insulin Human Regular (humuLIN R 100 UNIT/ML 3ML) INSULIN SLIDING SCAL... ACHS SQ 04/26/24 07:30 05/26/24 07:29 04/26/24 08:04 4 UNIT Lactated Ringer's 1,000 ml @ 100 mls/hr Q10H IV 04/26/24 01:00 05/26/24 00:59 04/27/24 08:59 100 MLS/HR Magnesium Sulfate 50 ml @ 0 mls/hr PROTOCOL PRN IV hypomagnesemia 04/26/24 01:00 05/26/24 00:59 04/26/24 14:59 25 MLS/HR Meropenem 1 gm/ Sodium Chloride 100 ml @ 33.333 mls/ hr Q8H IVPB 04/27/24 13:00 05/07/24 12:59 04/28/24 05:28 33.333 MLS/HR Morphine Sulfate (morPHINE 2MG SYG) 2 mg Q4H PRN IV SEVERE PAIN (7-10) 04/26/24 01:30 05/03/24 01:29 Norepinephrine 250 ml @ 0 mls/hr PROTOCOL IV 04/26/24 00:00 04/27/24 01:22 DC 04/26/24 21:11 58 MLS/HR Norepinephrine Bitartrate 32 mg/ Sodium Chloride 250 ml @ 0 mls/hr Q0M PRN IV ADMINISTER FOR SBP/DBP> 04/27/24 01:30 05/27/24 01:29 04/27/24 02:00 27 MLS/HR Ondansetron HCl (zoFRAN 4MG INJ) 4 mg Q6H PRN IV NAUSEA/VOMITING 04/26/24 01:00 05/26/24 00:59 Pharmacy Profile Note (Pharmacy Communication) 1 each ONCE MISC 04/27/24 13:00 04/27/24 13:07 DC Piperacillin Sod/ Tazobactam Sod 50 ml @ 12.5 mls/hr ZOSY8 IV 04/26/24 05:00 04/27/24 12:58 DC 04/27/24 12:50 12.5 MLS/HR Potassium Chloride 100 ml @ 100 mls/hr AD PRN IV POTASSIUM PROTOCOL 04/26/24 01:00 05/26/24 00:59 04/26/24 06:39 100 MLS/HR Potassium Chloride (K-Dur/Klor-Con 20meq) 20 meq AD PRN PO POTASSIUM PROTOCOL 04/26/24 01:00 05/26/24 00:59 04/28/24 08:46 20 MEQ Potassium Chloride (KCl 10% Elixir 20meq/15ml) 20 meq AD PRN PO POTASSIUM PROTOCOL 04/26/24 01:00 05/26/24 00:59 04/26/24 06:39 20 MEQ Vancomycin HCl 250 ml @ 125 mls/hr Q12H IV 04/26/24 11:30 04/27/24 12:58 DC 04/27/24 12:50 125 MLS/HR Vancomycin HCl 250 ml @ 125 mls/hr Q8H6 IV 04/27/24 14:00 04/27/24 12:58 DC Vancomycin HCl (Vancomycin Protocol) 1 each AD IV 04/26/24 07:00 04/27/24 12:58 DC Vasopressin 40 units/Sodium Chloride 42 ml @ 0 mls/hr AD PRN IV TITRATE 04/27/24 18:00 04/27/24 17:45 DC DIAGNOSTICS / RADIOLOGY: ASSESSMENT: Septic Shock - POA Hypotension requiring vasopressor (Levophed) support - POA Elevated lactic acid - POA Neutropenia - POA Diabetes mellitus type II - POA Hypertension - POA PLAN: Septic Shock - POA Hypotension requiring vasopressor (Levophed) support - POA Elevated lactic acid - POA Neutropenia - POA - fluid resuscitation - received 4L in total - Blood cultures - E. coli - treat with Meropenem - recheck lactic acid in the a.m. - continue vasopressor support with Levophed - continue to try to wean off - recheck labs in the am - monitor platelets and stop Lovenox Diabetes mellitus type II - POA - check hemoglobin A1c in the am - glucometer checks a.c. and HS - 1800 ADA diet - Humulin R sliding scale one Hypertension - POA - avoid antihypertensive medications at this time due to hypotension GI prophy - famotidine 20 mg PO QD DTV prophy - Lovenox 40 mg subQ QD - will hold for now Will continue to follow recommendations per critical care team Will continue on telemetry monitoring ATTESTATION BY PHYSICIAN I have seen and examined the patient. I reviewed the documentation, medical decision making, and treatment plan as noted by the resident provider above. I agree with the findings and plan of care. Patrice Nazario MD, PRIYA N Apr 28, 2024 10:28
--- NOTE | 2024-04-28 10:39 | PN ---
[facility] PROGRESS NOTE Date Patient Seen: Apr 28, 2024 Time of Visit: 10:39 Supervising Physician: Dr. Alvarado Consulting Physician: [facility] Outpatient Specialists: JULIO CESAR Inpatient Consults: Dr. Alvarado PROBLEM LIST: Shock state- septic shock Gram negative bacteremia- E Coli Gram negative acute complicated cystitis- E-Coli Community acquired pneumonia Acute hypoxic respiratory failure, POA Left flank pain Lactic acidosis, POA DM type 2, with hyperglycemia, POA Morbid obesity BMI 43 Suspect OHS/ ADAL- undiagnosed and untreated PLAN: Continue to wean of Levophed Give IVF with bolus nasal MRSA/flu a and B swab negative Follow up with CT scan of the abdomen Continue current antibiotic meropenum Blood culture positive ecoli and urine culture positive for gram neg rods Bowel regimen INTERVAL HISTORY: 04/26 patient is awake alert and oriented x3 lying down in bed not in acute distress. Patient is on 4 L nasal cannula saturation oxygen 100%. We we will wean oxygen as tolerated to keep sats greater 92%. Given BMI of 43 and bicarb was 28 in admission, patient might have OHS/ADAL. We can place a CPAP at night as tolerated. Otherwise lab this morning with sodium 146 this is up from 140 to potassium is 2.7. Chloride is 112. Lactic acid is down to 2.7 procalcitonin is 1.16. Check MRSA swab so we can discontinue vancomycin if negative. Otherwise continue Zosyn. CT scan of the abdomen is showing Single air bubble in the left kidney, no perinephric fat stranding, UA is with negative nitrites and leukocyte esterase but has WBC of 6-10, non bacteria. Continue to follow cultures. Continue to wean Levophed as tolerated. Keep map greater than 65. Keep in ICU given vasopressor requirement. 04/27 patient is awake alert and oriented x3 up in the chair not in acute distress. She is complaining of headache, she is used to drinking coffee every day, so we will give her Fioricet p.r.n.. She was weaned off of the Levophed drip this morning but he had to be restarted given that her blood pressure dropped again. Otherwise she is growing Gram-negative rods in the blood and in the urine WBC is down to 31 from 35 but given that she is remaining on v asopressors and thrombocytopenic, we will up the antibiotic coverage to meropenem for concern of ESBL, discontinue Zosyn. We can discontinue vancomycin as well. We can wean down abx when sensitivity is available. Keep in ICU if remains on vasopressors. 04/28-Patient seen at bedside stable and orientedx3. afebrile, 95% on 3L nasal cannula, BP 104/46, Patient nasal secretions negative for MRSA. Patient blood culture positive for e.coli. She is currently on Meropenem. Remarkable labs: white count trending down from 31.4 to 23.7, platelets up from 69K to 72. chemistries within normal range. Patient was taken off Levophed yesterday but her blood pressure dropped and was placed on Levophed again. She remains on Levophed and will try wean off, placed on midodrin TId. Give IVF LR bolus for now. Obtain 2Decho to evaluate for systolic and valve function given refractory hypotension. We will repeat procalcitonin and lactic acid. will De escalate merem if procal is normalized. Will discontinue pedraza catheter. Transfer out of ICU if remains off pressor. REVIEW OF SYSTEMS: 12 point ROS reviewed with patient. Pertinent positives mentioned above. Otherwise negative. PHYSICAL EXAM: GENERAL: alert, weak, awake oriented x 3 HEENT: EOMI, Sclera non icteric, moist mucosa NECK: Supple, no JVD, trachea midline LUNGS: Coarse bilateral lung sounds, tachypneic HEART: Regular rate and rhythm. Normal S1 and S2, without murmurs ABD: Large habitus EXT: No clubbing cyanosis or edema NEURO: Alert and oriented to person, follows commands Vital Signs (last 8hr) Date Time Temp Pulse Resp B/P (MAP) Pulse Ox O2 Delivery O2 Flow Rate FiO2 04/28/24 08:45 73 15 103/59 (74) 97 04/28/24 08:30 71 30 100/60 (73) 97 04/28/24 08:15 69 22 106/55 (72) 97 04/28/24 08:00 68 31 113/58 (76) 97 04/28/24 07:45 71 28 114/78 97 Nasal Cannula 3.0 04/28/24 07:45 71 28 114/78 (90) 97 04/28/24 07:30 70 20 91/48 97 Nasal Cannula 3.0 04/28/24 07:30 70 20 91/48 (62) 97 04/28/24 07:30 19 N/Cannula Low lpm 1.0 24 04/28/24 07:15 75 31 74/39 97 Nasal Cannula 3.0 04/28/24 07:15 75 31 74/39 (51) 97 04/28/24 05:48 69 24 100/44 95 Nasal Cannula 3.0 04/28/24 05:33 69 20 91/44 97 Nasal Cannula 3.0 04/28/24 05:18 68 21 100/45 98 Nasal Cannula 3.0 04/28/24 05:03 72 24 97/53 97 Nasal Cannula 3.0 04/28/24 04:48 71 20 103/46 97 Nasal Cannula 3.0 04/28/24 04:33 70 22 113/48 96 Nasal Cannula 3.0 04/28/24 04:18 98.1 71 22 97/48 95 Nasal Cannula 3.0 04/28/24 04:03 72 25 105/49 96 04/28/24 04:00 97 Nasal Cannula* 3 32 04/28/24 03:48 70 25 109/48 96 04/28/24 03:33 71 23 105/49 96 04/28/24 03:18 81 28 102/45 97 Nasal Cannula 04/28/24 03:03 84 26 121/55 97 Nasal Cannula 04/28/24 02:48 85 32 152/31 97 Nasal Cannula LABS: Hematology Labs: Test 04/28/24 07:59 04/27/24 03:40 Range/Units White Blood Count 23.7 H 4.8-10.8 K/uL Red Blood Count 4.14 4.00-5.50 MIL/uL Hemoglobin 12.6 12.0-16.0 g/dL Hematocrit 37.3 36-48 % Mean Corpuscular Volume 90.1 79-99 fL Mean Corpuscular Hemoglobin 30.4 27.0-33.0 pg Mean Corpuscular Hemoglobin Concent 33.8 32.0-36.0 g/dL Red Cell Distribution Width 15.4 11.0-15.5 % Platelet Count 72 L 130-400 K/uL Mean Platelet Volume 11.2 H 7.5-10.5 fL Nucleated Red Blood Cells 0.0 0.0-0.19 % Immature Granulocyte % (Auto) 5.5 H 0-1 % Neutrophils (%) (Auto) 85.8 H 40.0-77.0 % Lymphocytes (%) (Auto) 3.8 L 21.0-51.0 % Monocytes (%) (Auto) 4.5 3.0-13.0 % Eosinophils (%) (Auto) 0.1 0.0-8.0 % Basophils (%) (Auto) 0.3 0.0-5.0 % Neutrophils # (Auto) 26.9 H 1.8-7.7 K/uL Lymphocytes # (Auto) 1.2 1.0-4.8 K/uL Monocytes # (Auto) 1.4 H 0.1-1.0 K/uL Eosinophils # (Auto) 0.03 0.00-0.70 K/uL Basophils # (Auto) 0.08 0.00-0.20 K/uL Absolute Immature Granulocyte (auto 1.74 H 0-1 K/uL Chemistry Labs: Test 04/28/24 07:49 04/28/24 06:30 04/27/24 03:40 Range/Units Sodium Level 143 136-145 mmol/L Potassium Level 3.7 3.5-5.1 mmol/L Chloride Level 107 101-111 mmol/L Carbon Dioxide Level 28 21-32 mmol/L Blood Urea Nitrogen 13 7-18 mg/dL Creatinine 0.6 0.5-1.0 mg/dL Glomerular Filtration Rate Calc 103 >90 mL/min Random Glucose 98 70-105 mg/dL Total Calcium 8.0 L 8.5-10.1 mg/dL Whole Blood Glucose 96 70-110 MG/DL Magnesium Level 1.90 1.80-2.40 mg/dL Procalcitonin 20.92 H 0.05-0.5 ng/mL DIAGNOSTICS / RADIOLOGY RESULTS: [ ] PLAN NEURO: Minimize central acting medications as possible. Maintain fall precautions, adequate lighting during the day PULMONARY: Supplemental 02 as needed. Maintain aspiration precautions at all times CARDIOVASCULAR: Follow hemodynamics. Vital signs per facility protocol GI & NUTRITION: Continue with nutritional support. Continue stool softeners and laxatives as needed. KIDNEYS & ELECTROLYTES: Strict monitoring of intake, output and overall fluid balance. Avoid nephrotoxic medications to the extent possible. Medications to be dosed according to renal function. Monitor electrolytes and replace as needed ENDOCRINE: Maintain blood glucose between 100-180 at all times. Hypoglycemia protocol in place INFECTIOUS DISEASE: Trend temperature, WBC and procalcitonin level Follow cultures, deescalate antibiotics as soon as possible. Panculture if new onset fever ONCOLOGY/HEMATOLOGY/COAGULATION: Monitor for s/s of bleeding Monitor hemoglobin, coagulation studies as needed SKIN: Pressure ulcer prevention per facility protocol Specialty mattress ORTHO/REHAB: Continue PT/OT Prophylaxis: Continue GI and DVT prophylaxis Code Status: Full Resuscitation Disposition: TBD Other: Total patient care time exceeds 35 minutes excluding all procedures. SATHYA HARRIS MD Apr 28, 2024 10:39 KB FERNANDEZ CNP Apr 28, 2024 15:26
[2024-04-28] MEDS: miDODRine HCL 5 MG TABLET PO SCH (12:02)
[2024-04-28] MEDS: LACTATED RINGERS 1000ML IV ONE (12:03)
--- NOTE | 2024-04-28 15:27 | PN ---
[facility] PROGRESS NOTE Date Patient Seen: Apr 28, 2024 Time of Visit: 15:26 Supervising Physician: Dr. Alvarado Consulting Physician: [facility] Outpatient Specialists: JULIO CESAR Inpatient Consults: Dr. Alvarado PROBLEM LIST: Shock state- septic shock Gram negative bacteremia- E Coli Gram negative acute complicated cystitis- E-Coli Community acquired pneumonia Acute hypoxic respiratory failure, POA Left flank pain Lactic acidosis, POA DM type 2, with hyperglycemia, POA Morbid obesity BMI 43 Suspect OHS/ ADAL- undiagnosed and untreated PLAN: Continue to wean of Levophed Give IVF with bolus nasal MRSA/flu a and B swab negative Follow up with CT scan of the abdomen Continue current antibiotic meropenum Blood culture positive ecoli and urine culture positive for gram neg rods Bowel regimen INTERVAL HISTORY: 04/26 patient is awake alert and oriented x3 lying down in bed not in acute distress. Patient is on 4 L nasal cannula saturation oxygen 100%. We we will wean oxygen as tolerated to keep sats greater 92%. Given BMI of 43 and bicarb was 28 in admission, patient might have OHS/ADAL. We can place a CPAP at night as tolerated. Otherwise lab this morning with sodium 146 this is up from 140 to potassium is 2.7. Chloride is 112. Lactic acid is down to 2.7 procalcitonin is 1.16. Check MRSA swab so we can discontinue vancomycin if negative. Otherwise continue Zosyn. CT scan of the abdomen is showing Single air bubble in the left kidney, no perinephric fat stranding, UA is with negative nitrites and leukocyte esterase but has WBC of 6-10, non bacteria. Continue to follow cultures. Continue to wean Levophed as tolerated. Keep map greater than 65. Keep in ICU given vasopressor requirement. 04/27 patient is awake alert and oriented x3 up in the chair not in acute distress. She is complaining of headache, she is used to drinking coffee every day, so we will give her Fioricet p.r.n.. She was weaned off of the Levophed drip this morning but he had to be restarted given that her blood pressure dropped again. Otherwise she is growing Gram-negative rods in the blood and in the urine WBC is down to 31 from 35 but given that she is remaining on v asopressors and thrombocytopenic, we will up the antibiotic coverage to meropenem for concern of ESBL, discontinue Zosyn. We can discontinue vancomycin as well. We can wean down abx when sensitivity is available. Keep in ICU if remains on vasopressors. 04/28-Patient seen at bedside stable and orientedx3. afebrile, 95% on 3L nasal cannula, BP 104/46, Patient nasal secretions negative for MRSA. Patient blood culture positive for e.coli. She is currently on Meropenem. Remarkable labs: white count trending down from 31.4 to 23.7, platelets up from 69K to 72. chemistries within normal range. Patient was taken off Levophed yesterday but her blood pressure dropped and was placed on Levophed again. She remains on Levophed and will try wean off, placed on midodrin TId. Give IVF LR bolus for now. Obtain 2Decho to evaluate for systolic and valve function given refractory hypotension. We will repeat procalcitonin and lactic acid. will De escalate merem if procal is normalized. Will discontinue pedraza catheter. Transfer out of ICU if remains off pressor. REVIEW OF SYSTEMS: 12 point ROS reviewed with patient. Pertinent positives mentioned above. Otherwise negative. PHYSICAL EXAM: GENERAL: alert, weak, awake oriented x 3 HEENT: EOMI, Sclera non icteric, moist mucosa NECK: Supple, no JVD, trachea midline LUNGS: Coarse bilateral lung sounds, tachypneic HEART: Regular rate and rhythm. Normal S1 and S2, without murmurs ABD: Large habitus EXT: No clubbing cyanosis or edema NEURO: Alert and oriented to person, follows commands Vital Signs (last 8hr) Date Time Temp Pulse Resp B/P (MAP) Pulse Ox O2 Delivery O2 Flow Rate FiO2 04/28/24 15:00 75 26 123/57 (79) 04/28/24 14:45 72 25 114/53 (73) 04/28/24 14:30 78 29 112/49 (70) 04/28/24 14:03 72 27 115/42 (66) 04/28/24 14:00 73 26 112/53 (72) 04/28/24 13:45 73 36 121/52 (75) 04/28/24 13:30 84 23 141/55 (83) 04/28/24 13:15 70 31 122/46 (71) 04/28/24 13:00 73 31 129/56 (80) 92 04/28/24 12:45 79 33 132/72 (92) 04/28/24 12:30 93 37 120/69 (86) 04/28/24 12:15 93 37 128/27 (60) 04/28/24 12:00 95 Nasal Cannula* 3 32 04/28/24 12:00 99.9 04/28/24 12:00 76 31 119/54 (75) 95 04/28/24 11:45 68 25 112/46 (68) 98 04/28/24 11:30 68 26 107/42 (63) 99 04/28/24 11:03 68 28 102/52 (69) 98 04/28/24 11:00 70 27 108/56 (73) 100 04/28/24 10:45 67 30 105/54 (71) 99 04/28/24 10:30 71 30 108/45 (66) 97 04/28/24 10:15 64 24 90/39 (56) 98 04/28/24 10:00 67 17 104/46 95 Nasal Cannula 3.0 04/28/24 10:00 67 17 104/46 (65) 95 04/28/24 09:45 69 29 113/55 92 Nasal Cannula 3.0 04/28/24 09:45 69 29 113/55 (74) 92 04/28/24 09:30 70 29 109/55 96 Nasal Cannula 3.0 04/28/24 09:30 70 29 109/55 (73) 96 04/28/24 09:15 70 29 116/56 (76) 04/28/24 09:15 70 29 116/56 96 Nasal Cannula 3.0 04/28/24 09:00 68 28 119/56 (77) 04/28/24 09:00 68 28 119/56 96 Nasal Cannula 3.0 04/28/24 08:45 73 15 103/59 96 Nasal Cannula 3.0 04/28/24 08:45 73 15 103/59 (74) 97 04/28/24 08:30 71 30 100/60 97 Nasal Cannula 3.0 04/28/24 08:30 71 30 100/60 (73) 97 04/28/24 08:15 69 22 106/55 (72) 97 11/15/24 08:15 69 22 106/55 96 Nasal Cannula 3.0 04/28/24 08:00 68 31 113/58 (76) 97 04/28/24 08:00 95 Nasal Cannula* 3 32 04/28/24 08:00 68 31 113/58 97 Nasal Cannula 3.0 04/28/24 07:45 71 28 114/78 97 Nasal Cannula 3.0 04/28/24 07:45 71 28 114/78 (90) 97 04/28/24 07:30 70 20 91/48 97 Nasal Cannula 3.0 04/28/24 07:30 70 20 91/48 (62) 97 04/28/24 07:30 19 N/Cannula Low lpm 1.0 24 LABS: Hematology Labs: Test 04/28/24 07:59 04/27/24 03:40 Range/Units White Blood Count 23.7 H 4.8-10.8 K/uL Red Blood Count 4.14 4.00-5.50 MIL/uL Hemoglobin 12.6 12.0-16.0 g/dL Hematocrit 37.3 36-48 % Mean Corpuscular Volume 90.1 79-99 fL Mean Corpuscular Hemoglobin 30.4 27.0-33.0 pg Mean Corpuscular Hemoglobin Concent 33.8 32.0-36.0 g/dL Red Cell Distribution Width 15.4 11.0-15.5 % Platelet Count 72 L 130-400 K/uL Mean Platelet Volume 11.2 H 7.5-10.5 fL Nucleated Red Blood Cells 0.0 0.0-0.19 % Immature Granulocyte % (Auto) 5.5 H 0-1 % Neutrophils (%) (Auto) 85.8 H 40.0-77.0 % Lymphocytes (%) (Auto) 3.8 L 21.0-51.0 % Monocytes (%) (Auto) 4.5 3.0-13.0 % Eosinophils (%) (Auto) 0.1 0.0-8.0 % Basophils (%) (Auto) 0.3 0.0-5.0 % Neutrophils # (Auto) 26.9 H 1.8-7.7 K/uL Lymphocytes # (Auto) 1.2 1.0-4.8 K/uL Monocytes # (Auto) 1.4 H 0.1-1.0 K/uL Eosinophils # (Auto) 0.03 0.00-0.70 K/uL Basophils # (Auto) 0.08 0.00-0.20 K/uL Absolute Immature Granulocyte (auto 1.74 H 0-1 K/uL Chemistry Labs: Test 04/28/24 12:02 04/28/24 11:08 04/28/24 07:49 04/27/24 03:40 Range/Units Whole Blood Glucose 109 70-110 MG/DL Lactic Acid Level 1.3 0.8-2.5 mmol/L Procalcitonin 6.84 H 0.05-0.5 ng/mL Sodium Level 143 136-145 mmol/L Potassium Level 3.7 3.5-5.1 mmol/L Chloride Level 107 101-111 mmol/L Carbon Dioxide Level 28 21-32 mmol/L Blood Urea Nitrogen 13 7-18 mg/dL Creatinine 0.6 0.5-1.0 mg/dL Glomerular Filtration Rate Calc 103 >90 mL/min Random Glucose 98 70-105 mg/dL Total Calcium 8.0 L 8.5-10.1 mg/dL Magnesium Level 1.90 1.80-2.40 mg/dL DIAGNOSTICS / RADIOLOGY RESULTS: [ ] PLAN NEURO: Minimize central acting medications as possible. Fall Precautions. Well lighted room through the day and minimize interruptions through the night to prevent acute delirium. PULMONARY: Supplemental 02 as needed Titrate Fio2 to keep Spo2 > or = 90% DuoNebs and CPT as needed IS hourly while awake for pulmonary hygiene Out of bed to chair as tolerated VAP Bundle CARDIOVASCULAR: Follow hemodynamics. Titrate vasopressor to keep MAP >65 or systolic blood pressure >95mmHg DIPS: Levophed drip LINES: PIV, Pedraza GI & NUTRITION: NPO for now Continue nutritional support Aspirations precautions Prokinetic agents and laxatives as needed KIDNEYS & ELECTROLYTES: Strict monitoring of intake and output Daily weights Avoid nephrotoxic agents Monitor electrolytes and replace as needed Goal urine output of 30mL/hr or 0.5mL/kg/hr ENDOCRINE: Maintain blood glucose between 100-180 at all times. Insulin sliding scale for blood glucose management INFECTIOUS DISEASE: Trend temperature. Dillard-culture if febrile. Micro: [ ] Antibiotics: Zosyn HEMATOLOGY & COAGULATION: Monitor H&H. Keep Hgb > 7 Transfuse 1 unit of PRBC for Hgb < 7 Transfuse 1 pack of platelets of platelets < 20, 000 Watch for any signs and symptoms of bleeding SKIN: Pressure ulcer prevention per facility protocol Rehab: PT/OT Prophylaxis: GI: PPI DVT: Bilateral SCDs, Lovenox Code Status: Full Resuscitation Disposition: ICU Other: Total patient care time exceeds 35 minutes excluding all procedures. KB FERNANDEZ [facility] Apr 28, 2024 15:27
--- NOTE | 2024-04-28 20:56 | NUR ---
D/C PLAN CM spoke to patient regarding d/c planning. Patient is independent with ADL's lives with spouse. Denies having any home services or DME. Plan for now is to return home. CM to f/u for possible partner integration planner IV abx needs. Addendum: 04/28/24 at 2057 by PEEWEE COSME CM Amended: Links added.
[2024-04-29] VITALS (80 sets, daily range): BP systolic 64–193; BP diastolic 18–97; PULSE 59–133; RESP 15–33; TEMP 98.2–102.8; O2SAT 96–98
[2024-04-29] MEDS: acetaMINOPHEN 325 MG TAB PO PRN (03:48)
[2024-04-29 03:56] LABS: HEMATOCRIT 35.3 % (36-48); MEAN CORPUSCULAR HEMOGLOBIN 29.9 pg (27.0-33.0); MEAN CORPUSCULAR HGB CONC 33.7 g/dL (32.0-36.0); MEAN CORPUSCULAR VOLUME 88.7 fL (79-99); RED BLOOD CELL COUNT(AUTO) 3.98 MIL/uL (4.00-5.50); RED CELL DISTRIBUTION WIDTH 14.9 % (11.0-15.5); WHITE BLOOD COUNT (AUTO) 13.3 K/uL (4.8-10.8)
[2024-04-29 04:11] LABS: CREATININE 0.5 mg/dL (0.5-1.0); MAGNESIUM 1.7 mg/dL (1.80-2.40); POTASSIUM 3.6 mmol/L (3.5-5.1)
[2024-04-29] MEDS ORDERED: PoTASSium chl 10% ELIXIR 20MEQ 20 MEQ/15 ML UDCUP PO PRN (09:00)
[2024-04-29] MEDS ORDERED: PoTASSium chloRIDE 20MEQ ER 20 MEQ ERTAB PO PRN (09:00)
--- NOTE | 2024-04-29 12:01 | PN ---
[facility] PROGRESS NOTE Date Patient Seen: Apr 29, 2024 Time of Visit: 11:59 Supervising Physician: Dr. Caceres Consulting Physician: [facility] Outpatient Specialists: JULIO CESAR Inpatient Consults: Dr. Alvarado PROBLEM LIST: Shock state- septic shock Gram negative bacteremia- E Coli Gram negative acute complicated cystitis- E-Coli Community acquired pneumonia Acute hypoxic respiratory failure, POA Left flank pain Lactic acidosis, POA DM type 2, with hyperglycemia, POA Morbid obesity BMI 43 OHS/ ADAL- home CPAP PLAN: Continue with IVF Off of levophed Continue with antibiotic Procalcitonin in AM, CBC in AM Remove CVC to right IJ Ambulation CPAP at night Chest xray Transfer to [facility] INTERVAL HISTORY: 04/26 patient is awake alert and oriented x3 lying down in bed not in acute distress. Patient is on 4 L nasal cannula saturation oxygen 100%. We we will wean oxygen as tolerated to keep sats greater 92%. Given BMI of 43 and bicarb was 28 in admission, patient might have OHS/ADAL. We can place a CPAP at night as tolerated. Otherwise lab this morning with sodium 146 this is up from 140 to potassium is 2.7. Chloride is 112. Lactic acid is down to 2.7 procalcitonin is 1.16. Check MRSA swab so we can discontinue vancomycin if negative. Otherwise continue Zosyn. CT scan of the abdomen is showing Single air bubble in the left kidney, no perinephric fat stranding, UA is with negative nitrites and leukocyte esterase but has WBC of 6-10, non bacteria. Continue to follow cultures. Continue to wean Levophed as tolerated. Keep map greater than 65. Keep in ICU given vasopressor requirement. 04/27 patient is awake alert and oriented x3 up in the chair not in acute distress. She is complaining of headache, she is used to drinking coffee every day, so we will give her Fioricet p.r.n.. She was weaned off of the Levophed drip this morning but he had to be restarted given that her blood pressure dropped again. Otherwise she is growing Gram-negative rods in the blood and in the urine WBC is down to 31 from 35 but given that she is remaining on vasopressors and thrombocytopenic, we will up the antibiotic coverage to meropenem for concern of ESBL, discontinue Zosyn. We can discontinue vancomycin as well. We can wean down abx when sensitivity is available. Keep in ICU if remains on vasopressors. 04/28-Patient seen at bedside stable and orientedx3. afebrile, 95% on 3L nasal cannula, BP 104/46, Patient nasal secretions negative for MRSA. Patient blood culture positive for e.coli. She is currently on Meropenem. Remarkable labs: white count trending down from 31.4 to 23.7, platelets up from 69K to 72. chemistries within normal range. Patient was taken off Levophed yesterday but her blood pressure dropped and was placed on Levophed again. She remains on Levophed and will try wean off, placed on midodrin TId. Give IVF LR bolus for now. Obtain 2Decho to evaluate for systolic and valve function given refractory hypotension. We will repeat procalcitonin and lactic acid. will De escalate merem if procal is normalized. Will discontinue pedraza catheter. Transfer out of ICU if remains off pressor. 04/29 patient is awake alert oriented x3 not in acute distress. She has been weaned off the Levophed yesterday blood pressure is 112/52 map 72. Heart rate is 75. Patient feels a little bit warm T-max 99.9. Her WBC is down to 13 from 23K and platelet count is 77. Her procalcitonin is 5.7 this is down from 6 yesterday. Overall improvement in sepsis but given low grade fever, will continue current regimen till tomorrow. Her chemistry is unremarkable except for magnesium which we have replaced with electrolyte per protocol. Her pedraza cath has been removed yesterday. Otherwise she is stable at this time we can discontinue central line in the right IJ. Obtain chest x-ray for hypoxia. ohs. CPAP at night. Downgrade to med-surg. REVIEW OF SYSTEMS: 12 point ROS reviewed with patient. Pertinent positives mentioned above. Otherwise negative. PHYSICAL EXAM: GENERAL: alert, weak, awake oriented x 3 HEENT: EOMI, Sclera non icteric, moist mucosa NECK: Supple, no JVD, trachea midline LUNGS: Coarse bilateral lung sounds, tachypneic HEART: Regular rate and rhythm. Normal S1 and S2, without murmurs ABD: Large habitus EXT: No clubbing cyanosis or edema NEURO: Alert and oriented to person, follows commands Vital Signs (last 8hr) Date Time Temp Pulse Resp B/P (MAP) Pulse Ox O2 Delivery O2 Flow Rate FiO2 04/29/24 08:45 70 17 107/57 (74) 97 04/29/24 08:30 69 17 108/62 (77) 97 04/29/24 08:15 75 17 112/52 (72) 97 04/29/24 08:00 98.8 70 23 106/55 (72) 98 04/29/24 08:00 96 Room Air* 0 21 04/29/24 07:45 62 22 108/53 (71) 99 04/29/24 07:30 66 21 108/63 (78) 97 04/29/24 07:15 63 17 93/51 (65) 97 04/29/24 07:03 64 21 92/50 (64) 97 04/29/24 07:00 65 20 97 04/29/24 06:48 64 24 91/46 (61) 97 04/29/24 06:45 64 22 97 04/29/24 06:39 64 21 N/Cannula Low lpm 1.0 24 04/29/24 06:33 66 21 92/52 (65) 97 04/29/24 06:30 64 19 98 04/29/24 06:18 60 20 107/52 (70) 98 04/29/24 06:15 65 27 94 04/29/24 06:03 68 22 107/58 (74) 96 04/29/24 06:00 65 22 97 04/29/24 05:48 65 20 89/47 (61) 97 04/29/24 05:45 65 20 97 04/29/24 05:33 64 20 98/45 (62) 98 04/29/24 05:30 66 22 97 04/29/24 05:18 66 21 111/53 (72) 95 04/29/24 05:15 68 20 94 04/29/24 05:03 63 21 104/44 (64) 97 04/29/24 05:00 63 25 97 04/29/24 04:48 65 22 102/52 (69) 97 04/29/24 04:45 63 23 97 04/29/24 04:33 61 26 98/49 (65) 96 04/29/24 04:30 66 27 98 04/29/24 04:03 69 19 123/58 (79) 96 04/29/24 04:00 99.0 68 29 96 04/29/24 04:00 96 Nasal Cannula* 3 32 LABS: Hematology Labs: Test 04/29/24 03:38 Range/Units White Blood Count 13.3 #H 4.8-10.8 K/uL Red Blood Count 3.98 L 4.00-5.50 MIL/uL Hemoglobin 11.9 L 12.0-16.0 g/dL Hematocrit 35.3 L 36-48 % Mean Corpuscular Volume 88.7 79-99 fL Mean Corpuscular Hemoglobin 29.9 27.0-33.0 pg Mean Corpuscular Hemoglobin Concent 33.7 32.0-36.0 g/dL Red Cell Distribution Width 14.9 11.0-15.5 % Platelet Count 77 L 130-400 K/uL Mean Platelet Volume 11.4 H 7.5-10.5 fL Nucleated Red Blood Cells 0.0 0.0-0.19 % Chemistry Labs: Test 04/29/24 11:16 04/29/24 03:38 Range/Units Whole Blood Glucose 136 H 70-110 MG/DL Sodium Level 143 136-145 mmol/L Potassium Level 3.6 3.5-5.1 mmol/L Chloride Level 108 101-111 mmol/L Carbon Dioxide Level 29 21-32 mmol/L Blood Urea Nitrogen 11 7-18 mg/dL Creatinine 0.5 0.5-1.0 mg/dL Glomerular Filtration Rate Calc 108 >90 mL/min Random Glucose 95 70-105 mg/dL Lactic Acid Level 1.5 0.8-2.5 mmol/L Total Calcium 8.3 L 8.5-10.1 mg/dL Magnesium Level 1.70 L 1.80-2.40 mg/dL Procalcitonin 5.76 H 0.05-0.5 ng/mL DIAGNOSTICS / RADIOLOGY RESULTS: [ ] PLAN NEURO: Minimize central acting medications as possible. Fall Precautions. Well lighted room through the day and minimize interruptions through the night to prevent acute delirium. PULMONARY: Supplemental 02 as needed Titrate Fio2 to keep Spo2 > or = 90% DuoNebs and CPT as needed IS hourly while awake for pulmonary hygiene Out of bed to chair as tolerated VAP Bundle CARDIOVASCULAR: Follow hemodynamics. Titrate vasopressor to keep MAP >65 or systolic blood pressure >95mmHg DIPS: Levophed drip LINES: PIV, Pedraza GI & NUTRITION: NPO for now Continue nutritional support Aspirations precautions Prokinetic agents and laxatives as needed KIDNEYS & ELECTROLYTES: Strict monitoring of intake and output Daily weights Avoid nephrotoxic agents Monitor electrolytes and replace as needed Goal urine output of 30mL/hr or 0.5mL/kg/hr ENDOCRINE: Maintain blood glucose between 100-180 at all times. Insulin sliding scale for blood glucose management INFECTIOUS DISEASE: Trend temperature. Dillard-culture if febrile. Micro: [ ] Antibiotics: Zosyn HEMATOLOGY & COAGULATION: Monitor H&H. Keep Hgb > 7 Transfuse 1 unit of PRBC for Hgb < 7 Transfuse 1 pack of platelets of platelets < 20, 000 Watch for any signs and symptoms of bleeding SKIN: Pressure ulcer prevention per facility protocol Rehab: PT/OT Prophylaxis: GI: PPI DVT: Bilateral SCDs, Lovenox Code Status: Full Resuscitation Disposition: ICU Other: Total patient care time exceeds 35 minutes excluding all procedures. KB FERNANDEZ [employer] Apr 29, 2024 12:01
--- NOTE | 2024-04-29 12:31 | HMCIMG ---
PORTABLE CHEST RADIOGRAPH INDICATION: hypoxia, OHS COMPARISON: 04/26/2024 FINDINGS: head athletic trainer leads overlie the field of view. Stable right IJ catheter. Heart size is normal. Pulmonary vascularity is slightly enlarged. No abnormal pulmonary parenchymal opacity or consolidation identified. No significant pleural effusion noted. No pneumothorax detected. IMPRESSION: Mild pulmonary vascular congestion.
--- NOTE | 2024-04-29 13:00 | NUR ---
NURSING NOTE 1300 PATIENT PRESENTS WITH UNCONTROLLABLE CHILLS AND TACHYCARDIA. BP HYPERTENSIVE. HOSPITALIST DR. MIKE AT BEDSIDE. CONSULT ID DR. OROSCO. [id number]: FRIST WITH BENCHMARK MADE AWARE OF CHANGE IN CONDITION. 1330 DR. OROSCO PAGED
--- NOTE | 2024-04-29 13:46 | PN ---
[facility] PROGRESS NOTE Date of Service: Apr 29, 2024 Time of Service: 13:44 Patient was seen and examined. Case discussed with the RN she is doing well today and denies any nausea vomiting fever or chills. WBCs down to 13.3 And platelets are at 77 SUBJECTIVE: 04/26 - patient is 58 year old female seen at bedside afebrile, HR 80, BP115/60, tachypneic on 4L nasal cannula. Patient complains of chills and feeling unwell. She continues be on Levophed and triple antibiotics - Vancomycin, Zosyn, Azithromycin. Remarkable labs: white count increased significantly from 3.5 to 35.2, platelets decreased significantly from 161K to 63K. Sodium 146, potassium 2.7, BUN and creatinine within normal range. Lactic acid trending down from 3.72 to 2.7, ABG pH 7.458, CO2 27, O2 59.9, HCO3 18.8, magnesium 1.3, procalcitonin elevated 1.16. BNP and troponins within normal range. CT abdomen/pelvis showed single air bubble in normal appearing left kidney, consistent with air refluxing into the kidney from the urinary bladder. Kidneys appear normal otherwise. A small amount of air is present in a nondistended urinary bladder there is a Segovia catheter in position, the air could represent emphysematous cystitis or be secondary to instrumentation. Gallbladder is absent. Potassium protocol initiated. If platelets continue to drop will consider ordering HIT panel and possibly holding Lovenox. Patient is being followed by critical care. We will continue to medically manage and follow recommendations. 04/27 - patient seen at bedside, afebrile heart rate 82, tachypneic on 3L nasal cannula, BP 86/39. Patient appears more comfortable but states she was unable to sleep due to CPAP machine and anxiety. Remarkable labs: white count trending down from 35.2 to 31.4, platelets up from 63K to 69K. Sodium 146, calcium 7.7, magnesium 1.9, procalcitonin 20.92, BUN and creatinine within normal range. Patient remains on vancomycin, zosyn, and azithromycin. Patient on Levophed and will continue to try to wean off. Patient had a central line placed on the right yesterday and tolerated the procedure well. Lovenox held due to low platelets. Will continue to monitor and medically manage and follow recommendations per critical care team. 04/28 - Patient seen at bedside accompanied by her daughter. She is comfortable, afebrile, on 3L nasal cannula. Patient nasal secretions negative for MRSA. Patient blood culture positive for e.coli. She is currently on Meropenem, no longer on vancomycin, Zosyn, and azithromycin. Remarkable labs: white count trending down from 31.4 to 23.7, platelets up from 69K to 72. chemistries within normal range. Patient was taken off Levophed yesterday but her blood pressure dropped and was placed on Levophed again. She remains on Levophed and will wean off. We will continue to monitor and medically manage and follow recommendations per critical care team. REVIEW OF SYSTEMS CONSTITUTIONAL: Complains of fevers, chills, denies night sweats. No unintentional weight loss reported. NEUROLOGICAL: Denies headache, amaurosis fugax, motor weakness, sensory deficit, vertigo/spinning sensation, gait abnormalities, or tremors. ENT: No hearing loss, otalgia, otorrhea, rhinitis, rhinorrhea, hoarseness, or sore throat. CARDIOVASCULAR: Denies any exertional angina, dyspnea on exertion, orthopnea, paroxysmal nocturnal dyspnea, palpitations, life-threatening arrhythmias, claudication. PULMONARY: Denies any shortness of breath, cough, phlegm/sputum, hemoptysis, pleuritic chest pain. SLEEP: Denies morning headaches, daytime somnolence or napping. Denies difficulty falling asleep, staying asleep, waking from sleep. Denies knowledge of snoring. GASTROINTESTINAL: Denies any type of dysphagia to either liquids or solids. Denies nausea, vomiting, pyrosis, early satiety, abdominal pain, diarrhea, constipation, or changes in stool consistency or caliber. Denies coffee-ground emesis, hematemesis, hematochezia, or melanotic stools. GENITOURINARY: Denies frequency, urgency, nocturia, hematuria or incontinence (Storage/Irritative symptoms.) Low urinary stream, straining to void, urinary intermittency or hesitancy, splitting of the voiding stream, terminal dribbling. ENDOCRINOLOGIC: Denies polyuria, polydipsia, polyphagia or heat/cold intolerances. HEMATOLOGIC: Denies thrombophilia/previous clots, or coagulopathy/bleeding disorders. ONCOLOGIC: Denies personal history of malignancy. DERMATOLOGIC: Denies rashes or pruritus. PSYCHIATRIC: Denies any suicidal or homicidal ideation. Denies hallucinations. PHYSICAL EXAM GENERAL APPEARANCE: The patient is awake, alert, and oriented, in no acute cardiopulmonary distress. NEUROLOGICAL: Cranial nerves II-XII grossly intact. Motor is 5/5 in bilateral upper and lower extremities proximal to distal. No sensory deficits. HEENT: Face is symmetric. Pupils are equal and reactive. Extraocular movements are intact. NECK: Supple. No JVD. No thyromegaly. No submental, submandibular, pre- /postauricular, occipital or supraclavicular lymphadenopathy. CHEST: Normal chest expansion. No Telemetry. LUNGS: Absence of any rales, positive for rhonchi Negative for any wheezing. CARDIOVASCULAR: Regular. S1 and S2 normal. No appreciable rubs, murmurs or gallops. ABDOMEN: Soft, nontender, and nondistended. There is no rebound, voluntary guarding, or rigidity. : Deferred. No Segovia. EXTREMITIES: Non-edematous and not cyanotic. No clubbing. Good capillary refill. SKIN: No skin breakdown. Vital Signs (last 8hr) Date Time Temp Pulse Resp B/P (MAP) Pulse Ox O2 Delivery O2 Flow Rate FiO2 04/29/24 08:45 70 17 107/57 (74) 97 04/29/24 08:30 69 17 108/62 (77) 97 04/29/24 08:15 75 17 112/52 (72) 97 04/29/24 08:00 98.8 70 23 106/55 (72) 98 04/29/24 08:00 96 Room Air* 0 21 04/29/24 07:45 62 22 108/53 (71) 99 04/29/24 07:30 66 21 108/63 (78) 97 04/29/24 07:15 63 17 93/51 (65) 97 04/29/24 07:03 64 21 92/50 (64) 97 04/29/24 07:00 65 20 97 04/29/24 06:48 64 24 91/46 (61) 97 04/29/24 06:45 64 22 97 04/29/24 06:39 64 21 N/Cannula Low lpm 1.0 24 04/29/24 06:33 66 21 92/52 (65) 97 04/29/24 06:30 64 19 98 04/29/24 06:18 60 20 107/52 (70) 98 04/29/24 06:15 65 27 94 04/29/24 06:03 68 22 107/58 (74) 96 04/29/24 06:00 65 22 97 04/29/24 05:48 65 20 89/47 (61) 97 04/29/24 05:45 65 20 97 LABS: Laboratory: Test 04/29/24 11:16 04/29/24 03:38 Range/Units Whole Blood Glucose 136 H 70-110 MG/DL White Blood Count 13.3 #H 4.8-10.8 K/uL Red Blood Count 3.98 L 4.00-5.50 MIL/uL Hemoglobin 11.9 L 12.0-16.0 g/dL Hematocrit 35.3 L 36-48 % Mean Corpuscular Volume 88.7 79-99 fL Mean Corpuscular Hemoglobin 29.9 27.0-33.0 pg Mean Corpuscular Hemoglobin Concent 33.7 32.0-36.0 g/dL Red Cell Distribution Width 14.9 11.0-15.5 % Platelet Count 77 L 130-400 K/uL Mean Platelet Volume 11.4 H 7.5-10.5 fL Nucleated Red Blood Cells 0.0 0.0-0.19 % Sodium Level 143 136-145 mmol/L Potassium Level 3.6 3.5-5.1 mmol/L Chloride Level 108 101-111 mmol/L Carbon Dioxide Level 29 21-32 mmol/L Blood Urea Nitrogen 11 7-18 mg/dL Creatinine 0.5 0.5-1.0 mg/dL Glomerular Filtration Rate Calc 108 >90 mL/min Random Glucose 95 70-105 mg/dL Lactic Acid Level 1.5 0.8-2.5 mmol/L Total Calcium 8.3 L 8.5-10.1 mg/dL Magnesium Level 1.70 L 1.80-2.40 mg/dL Procalcitonin 5.76 H 0.05-0.5 ng/mL Current Medications Medications (Trade) Dose Ordered Sig/Karthik Route PRN Reason Start Time Stop Time Status Last Admin Dose Admin Acetaminophen (TYLenol 325MG TAB) 650 mg Q4H PRN PO MILD PAIN (1-3) 04/26/24 01:00 05/26/24 00:59 04/28/24 17:24 650 MG Acetaminophen (TYLenol 325MG TAB) 650 mg Q6H PRN PO TEMPERATURE GREATER THAN 101.5 04/26/24 01:00 05/26/24 00:59 04/29/24 10:39 650 MG Acetaminophen/ Butalbital/ Caffeine (Jzyktcjn-Rkurbocdztbvg-Mnni Tb) 1 each BID PRN PO TENSION HEADACHE 04/27/24 13:30 05/27/24 13:29 Azithromycin 250 ml @ 250 mls/hr ONCE IVPB 04/26/24 00:00 04/28/24 06:39 DC 04/28/24 00:24 250 MLS/HR Enoxaparin Sodium (Lovenox) 40 mg DAILY SQ 04/26/24 09:00 05/26/24 08:59 04/29/24 08:35 40 MG Famotidine (Pepcid 20mg Tab) 20 mg DAILY PO 04/26/24 09:00 05/26/24 08:59 04/29/24 08:35 20 MG Insulin Human Regular (humuLIN R 100 UNIT/ML 3ML) INSULIN SLIDING SCAL... ACHS SQ 04/26/24 07:30 05/26/24 07:29 04/28/24 21:11 4 UNIT Lactated Ringer's 1,000 ml @ 100 mls/hr Q10H IV 04/26/24 01:00 05/26/24 00:59 04/28/24 21:13 100 MLS/HR Magnesium Sulfate 50 ml @ 0 mls/hr PROTOCOL PRN IV hypomagnesemia 04/26/24 01:00 05/26/24 00:59 04/29/24 04:53 25 MLS/HR Meropenem 1 gm/ Sodium Chloride 100 ml @ 33.333 mls/ hr Q8H IVPB 04/27/24 13:00 05/07/24 12:59 04/29/24 13:22 33.333 MLS/HR Midodrine (PROAMatine 5 MG TABLET) 10 mg TID PO 04/28/24 11:00 05/28/24 10:59 04/29/24 08:35 10 MG Morphine Sulfate (morPHINE 2MG SYG) 2 mg Q4H PRN IV SEVERE PAIN (7-10) 04/26/24 01:30 05/03/24 01:29 Norepinephrine 250 ml @ 0 mls/hr PROTOCOL IV 04/26/24 00:00 04/27/24 01:22 DC 04/26/24 21:11 58 MLS/HR Norepinephrine Bitartrate 32 mg/ Sodium Chloride 250 ml @ 0 mls/hr Q0M PRN IV ADMINISTER FOR SBP/DBP> 04/27/24 01:30 04/29/24 11:56 DC 04/27/24 02:00 27 MLS/HR Ondansetron HCl (zoFRAN 4MG INJ) 4 mg Q6H PRN IV NAUSEA/VOMITING 04/26/24 01:00 05/26/24 00:59 Pharmacy Profile Note (Pharmacy Communication) 1 each ONCE MISC 04/27/24 13:00 04/27/24 13:07 DC Piperacillin Sod/ Tazobactam Sod 50 ml @ 12.5 mls/hr ZOSY8 IV 04/26/24 05:00 04/27/24 12:58 DC 04/27/24 12:50 12.5 MLS/HR Potassium Chloride 100 ml @ 100 mls/hr AD PRN IV POTASSIUM PROTOCOL 04/26/24 01:00 05/26/24 00:59 04/29/24 04:54 100 MLS/HR Potassium Chloride (K-Dur/Klor-Con 20meq) 20 meq AD PRN PO POTASSIUM PROTOCOL 04/26/24 01:00 05/26/24 00:59 04/28/24 08:46 20 MEQ Potassium Chloride (K-Dur/Klor-Con 20meq) 20 meq AD PRN PO POTASSIUM PROTOCOL 04/29/24 09:00 04/29/24 08:45 DC Potassium Chloride (KCl 10% Elixir 20meq/15ml) 20 meq AD PRN PO POTASSIUM PROTOCOL 04/26/24 01:00 05/26/24 00:59 04/26/24 06:39 20 MEQ Potassium Chloride (KCl 10% Elixir 20meq/15ml) 20 meq AD PRN PO POTASSIUM PROTOCOL 04/29/24 09:00 04/29/24 08:44 DC Vancomycin HCl 250 ml @ 125 mls/hr Q12H IV 04/26/24 11:30 11/14/24 12:58 DC 04/27/24 12:50 125 MLS/HR Vancomycin HCl 250 ml @ 125 mls/hr Q8H6 IV 04/27/24 14:00 04/27/24 12:58 DC Vancomycin HCl (Vancomycin Protocol) 1 each AD IV 04/26/24 07:00 04/27/24 12:58 DC Vasopressin 40 units/Sodium Chloride 42 ml @ 0 mls/hr AD PRN IV TITRATE 04/27/24 18:00 04/27/24 17:45 DC DIAGNOSTICS / RADIOLOGY: [ ] ASSESSMENT: Septic Shock - POA Hypotension requiring vasopressor (Levophed) support - POA Elevated lactic acid - POA Neutropenia - POA Diabetes mellitus type II - POA Hypertension - POA PLAN: Septic Shock - POA Hypotension requiring vasopressor (Levophed) support - POA Elevated lactic acid - POA Neutropenia - POA - fluid resuscitation - received 4L in total - Blood cultures - E. coli - treat with Meropenem - recheck lactic acid in the a.m. - continue vasopressor support with Levophed - continue to try to wean off - recheck labs in the am - monitor platelets and stop Lovenox Diabetes mellitus type II - POA - check hemoglobin A1c in the am - glucometer checks a.c. and HS - 1800 ADA diet - Humulin R sliding scale one Hypertension - POA - avoid antihypertensive medications at this time due to hypotension GI prophy - famotidine 20 mg PO QD DTV prophy - Lovenox 40 mg subQ QD - will hold for now Will continue to follow recommendations per critical care team Will continue on telemetry monitoring EMILEE DELUNA MD Apr 29, 2024 13:45
[2024-04-29 14:00] LABS: BASOPHILS # (AUTO) 0.05 K/uL (0.00-0.20); BASOPHILS % (AUTO) 0.8 % (0.0-5.0); EOSINOPHILS # (AUTO) 0.09 K/uL (0.00-0.70); EOSINOPHILS % (AUTO) 1.4 % (0.0-8.0); HEMATOCRIT 42.7 % (36-48); IMMATURE GRANULOCYTE ABSOLUTE 0.18 K/uL (0-1); LYMPHOCYTES # (AUTO) 1.2 K/uL (1.0-4.8); LYMPHOCYTES % (AUTO) 18.8 % (21.0-51.0); MEAN CORPUSCULAR HEMOGLOBIN 29.8 pg (27.0-33.0); MEAN CORPUSCULAR HGB CONC 32.6 g/dL (32.0-36.0); MEAN CORPUSCULAR VOLUME 91.6 fL (79-99); MONOCYTES # (AUTO) 0.2 K/uL (0.1-1.0); MONOCYTES % (AUTO) 2.4 % (3.0-13.0); NEUTROPHILS # (AUTO) 4.7 K/uL (1.8-7.7); NEUTROPHILS % (AUTO) 73.8 % (40.0-77.0); PLATELET COUNT (AUTO) 64 K/uL (130-400); RED BLOOD CELL COUNT(AUTO) 4.66 MIL/uL (4.00-5.50); RED CELL DISTRIBUTION WIDTH 15.3 % (11.0-15.5); WHITE BLOOD COUNT (AUTO) 6.4 K/uL (4.8-10.8)
[2024-04-29] MEDS: SODIUM CHLORIDE 3% FOR INHALATION 4 ML/AMP VIAL.NEB IH ONE ×2 (14:29→18:06)
[2024-04-29 14:36] LABS: SARS-CoV-2, RNA, NAAT NEGATIVE SARS CoV-2 (NEGATIVE)
[2024-04-29 14:44] LABS: INFLUENZA TYPE A Negative For Type A (NEGATIVE); INFLUENZA TYPE B Negative For Type B (NEGATIVE)
--- NOTE | 2024-04-29 14:45 | CONS ---
INFECTIOUS DISEASE CONSULTATION NOTE Date of Service: Apr 29, 2024 Reason for Consultation: Fever, Chills, Sepsis Requesting Physician: Dr. Patrice Nazario HISTORY OF PRESENT ILLNESS: This is a 58-year-old female patient with past medical history of diabetes who was initially admitted for chief complaint of fever, chills and left flank pain. On admission to the hospital patient had a fever of 105.1, patient was hypotensive and the lactic acid was 3.8. Patient was admitted as a case of septic shock and admitted to the ICU for vasopressor support. The WBC went as high as 35.2 and trended down to 6.4 today. Patient however developed a fever of 102.7, had chills and a lactic acid was 5.0 this afternoon. The blood culture and urine culture collected on admission came back positive for E.coli and patient has been started on meropenem. Blood cultures were repeated today and we will follow up on the results. We will continue meropenem at this time and add Vancomycin per pharmacy protocol to the antibiotic regimen. REVIEW OF SYSTEMS CONSTITUTIONAL: fever and chills POA. HEAD/FACE: No signs of trauma. EENT: Denies eye pain, blurred vision, double vision, or light sensitivity. RESPIRATORY: Denies shortness of breath, cough, wheezing. CARDIOVASCULAR: Denies chest pain, palpitation, syncope GASTROINTESTINAL/ABDOMINAL: Denies abdominal pain, constipation, diarrhea, nausea or vomiting. Left flank pain POA. GENITOURINARY: Denies dysuria or hematuria. MUSCULOSKELETAL: Denies joint pain, tenderness, or trauma. INTEGUMENTARY: Denies rash or itchiness NEUROLOGICAL/PSYCH: Denies anxiety, depression, heat or cold intolerance. PAST MEDICAL HISTORY: Diabetes mellitus. PAST SURGICAL HISTORY: Left ankle ORIF. Hernia repair. Bilateral tubal ligation. Cholecystectomy. PAST SOCIAL HISTORY: Occasional alcoholic beverages once a month. Denies smoking or the use of any illicit drug. FAMILY HISTORY: Stated she is not aware due to she was adopted. Coded Allergies: No Known Allergies (Unverified Allergy, Unknown, 04/25/24) PHYSICAL EXAM EYES: Anicteric. Pupils equal and reactive. HENT: No oral thrush seen, moist Oral mucosa. NECK: Supple, no JVD or thyromegaly. LUNGS: Good air entry. No rales, no rhonchi. Diminished breath sounds. Occasional cough. Oxygen via nasal cannula. CARDIOVASCULAR: S1, S2 regular. No murmur heard. ABDOMEN: Soft, non tender, bowel sounds hypoactive., no organomegaly. CENTRAL NERVOUS SYSTEM: Awake, alert, oriented x 3. SKIN: No rashes, no swelling. LYMPHATICS: No peripheral lymphadenopathy. MUSCULOSKELETAL: No joint swelling, erythema or tenderness. EXTREMITIES: No cyanosis or clubbing. Edema to the right foot. Patient stated his chronic sense a right ankle ORIF. BACK: No deformity, no pressure ulcer. GENITOURINARY: No dysuria or hematuria Vital Sign (Last 24 Hours) 04/29/24 04/29/24 08:00 08:45 Temp 98.8 Pulse 70 Resp 17 B/P (MAP) 107/57 (74) Pulse Ox 97 O2 Delivery Room Air* O2 Flow Rate 0 FiO2 21 Intake & Output (last 24hrs) 04/28/24 04/28/24 04/29/24 15:00 23:00 07:00 Intake Total 2893.5 ml 1225.5 ml 883.3 ml Output Total 1300 ml 1800 ml Balance 2893.5 ml -74.5 ml -916.7 ml LABS: Laboratory: Test 04/29/24 13:45 04/29/24 11:16 04/29/24 03:38 Range/Units White Blood Count 6.4 # 4.8-10.8 K/uL Red Blood Count 4.66 4.00-5.50 MIL/uL Hemoglobin 13.9 12.0-16.0 g/dL Hematocrit 42.7 # 36-48 % Mean Corpuscular Volume 91.6 79-99 fL Mean Corpuscular Hemoglobin 29.8 27.0-33.0 pg Mean Corpuscular Hemoglobin Concent 32.6 32.0-36.0 g/dL Red Cell Distribution Width 15.3 11.0-15.5 % Platelet Count 64 L 130-400 K/uL Mean Platelet Volume 10.8 H 7.5-10.5 fL Immature Granulocyte % (Auto) 2.8 H 0-1 % Neutrophils (%) (Auto) 73.8 40.0-77.0 % Lymphocytes (%) (Auto) 18.8 L 21.0-51.0 % Monocytes (%) (Auto) 2.4 L 3.0-13.0 % Eosinophils (%) (Auto) 1.4 0.0-8.0 % Basophils (%) (Auto) 0.8 0.0-5.0 % Neutrophils # (Auto) 4.7 1.8-7.7 K/uL Lymphocytes # (Auto) 1.2 1.0-4.8 K/uL Monocytes # (Auto) 0.2 0.1-1.0 K/uL Eosinophils # (Auto) 0.09 0.00-0.70 K/uL Basophils # (Auto) 0.05 0.00-0.20 K/uL Absolute Immature Granulocyte (auto 0.18 0-1 K/uL Nucleated Red Blood Cells 0.0 0.0-0.19 % Lactic Acid Level 5.0 H 0.8-2.5 mmol/L Whole Blood Glucose 136 H 70-110 MG/DL Sodium Level 143 136-145 mmol/L Potassium Level 3.6 3.5-5.1 mmol/L Chloride Level 108 101-111 mmol/L Carbon Dioxide Level 29 21-32 mmol/L Blood Urea Nitrogen 11 7-18 mg/dL Creatinine 0.5 0.5-1.0 mg/dL Glomerular Filtration Rate Calc 108 >90 mL/min Random Glucose 95 70-105 mg/dL Total Calcium 8.3 L 8.5-10.1 mg/dL Magnesium Level 1.70 L 1.80-2.40 mg/dL Procalcitonin 5.76 H 0.05-0.5 ng/mL PATIENT: CLARK SOLIS ACCT: [id number] LOC: [facility] U: [id number] AGE/SX: 58/F ROOM: [facility] RE04/25/[address]: MARJORIE MORALES MD : 1965 BED: 1 DIS: STATUS: ADM IN TLOC: SPEC: [id number] EN: 04/25/24 STATUS: COMP REQ: [id number] RECD: 04/26/24 [facility] DR: ROMMEL HEAD MD SOURCE: BLOOD ENTR: 04/26/[address]: MOI DELGADO MD [facility]: BLOOD ORDERED: AERO ID & SENS Procedure Result Aubrey Date-Time AEROBIC ID & SENSITIVITIES Final 04/28/24 [facility] COLONY DESCRIPTION: DAY 1: GRAM NEGATIVE RODS PEDIATRIC BOTTLE IDENTIFICATION AND SENSITIVITY TO FOLLOW ESCHERICHIA COLI E COLI M.I.C. RX --------- ---- AMPICILLIN >16 R AZTREONAM <=4 S CEFAZOLIN <=2 S CEFTAZIDIME/AVIBACTAM <=8 S GENTAMICIN <=2 S LEVOFLOXACIN <=0.5 S AMPICILLIN/SULBACTAM 16/8 I MEROPENEM <=1 S PIPERACILLIN/TAZOBACTAM <=8 S TRIMETHOPRIM/SUFLAMETHOXAZOLE <=2/38 S PATIENT: CLARK SOLIS ACCT: [id number] LOC: [facility] U: [id number] AGE/SX: 58/F ROOM: 206 RE04/25/[address]: MARJORIE MORALES MD : 1965 BED: 1 DIS: STATUS: ADM IN TLOC: SPEC: [id number] EN: 04/25/24 STATUS: COMP REQ: [id number] RECD: 04/25/[address]: ROMMEL HEAD MD SOURCE: [facility] ENTR: 04/26/24 [facility] DR: MOI DELGADO MD SPDESC: CLEAN CAT ORDERED: AERO ID & SENS Procedure Result Aubrey Date-Time AEROBIC ID & SENSITIVITIES Final 04/28/24-741 [facility] COLONY DESCRIPTION: DAY 1: COLONY COUNT: >100,000 CFU/ML GRAM NEGATIVE RODS IDENTIFICATION AND SENSITIVITY TO FOLLOW ESCHERICHIA COLI E COLI M.I.C. RX --------- ---- AMPICILLIN >16 R AZTREONAM <=4 S CEFAZOLIN <=2 S CEFTAZIDIME/AVIBACTAM <=8 S GENTAMICIN <=2 S LEVOFLOXACIN <=0.5 S NITROFURANTOIN <=32 S MEROPENEM <=1 S PIPERACILLIN/TAZOBACTAM <=8 S TRIMETHOPRIM/SUFLAMETHOXAZOLE <=2/38 S --- --------- ASSESSMENT: E coli bacteremia. Urinary tract infection with E coli. Sepsis. Pneumonia. Leukocytosis resolving. Left flank pain, pyelonephritis ruled out. Diabetes mellitus. PLAN: Start vancomycin per pharmacy protocol. Continue meropenem. Continue GI prophylaxis. We will follow up on the repeat cultures. Pending a sputum culture. Continue pain management. Continue antidiabetics. Will monitor electrolytes. Thank you for allowing ID to participate in the care of this patient. This case was reviewed and discussed with my supervising physician and the above assessment and plan was formulated and agreed upon. ATTESTATION BY PHYSICIAN I have seen and examined the patient. I reviewed the documentation, medical decision making, and treatment plan as noted by the mid-level provider above. I agree with the findings and plan of care. DAMARIS OROSCO MD, [facility] Apr 29, 2024 14:45
[2024-04-29] MEDS: LACTATED RINGERS 1000ML IV SCH (15:48)
[2024-04-29] MEDS ORDERED: VANCOMYCIN PROTOCOL PER PHARMACY IV SCH (16:00)
--- NOTE | 2024-04-29 16:10 | NUR ---
NURSING NOTE PATIENT TRANSFERRED TO ROOM 319 IN WHEELCHAIR WITH . AMBULATED TO CHAIR DID WELL. NO C/O OF PAIN OR DISCOMFORT.
[2024-04-29] MEDS: VANCOMYCIN 2GM/500 ML BAG 500 ML IV SCH (20:34)
--- NOTE | 2024-04-29 23:11 | HMCSR ---
APPROVED REPORT EXAM: Two-dimensional and M-mode echocardiogram with Doppler and color Doppler. Study Details: HTN ,HLD, Diabts M INDICATION ICD: Assess LV Function 2D Dimensions RVDd5.2 cmLVEF(%)66.9 (>50%)LA ESV INDEX (4CH)18.70 mL/m2 IVSd0.7 (0.7-1.1cm)FS(%)38 % LVDd5.6 (3.8-5.6cm)LA (2D)3.7 (1.6-4.0cm) PWd1.0 (0.7-1.1cm)Ao Root(2D)3.0 (2.0-3.7cm) IVSs1.3 cmLVOT diam2.0 (1.8-2.4cm) LVDs3.5 (2.5-4.0cm) PWs1.4 cm Deformation Strain Apical 422.0 % Apical 220.0 % Apical 314.0 % Global Ablsma70.0 % M-Mode Dimensions EPSS0.9 cm LA (MM)5.0 (1.6-4.0cm) Ao Root(MM)2.9 (2.0-3.7cm) Aortic Valve AoV VTI0.3 mAo Mean GR4.0 mmHgLVOT VTI0.18 m NEAL (VMAX)2.0 cm2AVA (VTI) 2.0 cm2 Mitral Valve MV E Vmax62.6 cm/sDECEL Fany198 ms MV A Vmax77.6 cm/sP 1/2 T55 ms E/A ratio0.8MVA (PHT)4.0 cm2 TDI E/E' Ewnghm53.6E/E' Lateral9.8 Medial E' Peak V5.90 cm/sLateral E' Peak V6.40 cm/s Pulmonary Valve PV VTI0.16 mPV Mean GR1 mmHg Tricuspid Valve TR Vmax2.7 m/s TR Peak GR28.9 mmHg Left Ventricle The left ventricle is normal size. There is a septal bounce noted. The other tay are grossly normal in function. Mild concentric left ventricular hypertrophy. Left ventricular systolic function is nor mal, estimated LVEF is 55 to 60%. Stage I diastolic dysfunction. Right Ventricle The right ventricle is dilated, 5.2cm. The right ventricular systolic function is grossly normal Atria The left atrium is mildly dilated. The right atrium is dilated. Aortic Valve Aortic valve is trileaflet. The leaflets are mild thickened and calcified. Trace aortic regurgitation . There is no aortic valvular stenosis. Mitral Valve The mitral valve is normal in structure. Trace mitral regurgitation. There is no mitral valve stenosi s. Tricuspid Valve The tricuspid valve is normal in structure. Mild tricuspid regurgitation. RVSP is 29 mmHg. Pulmonic Valve Pulmonic valve is not well visualized. Great Vessels The aortic root is normal in size. The ascending aorta is normal in size. IVC is dilated and collapse s < 50% with inspiration. Pericardium No pericardial effusion. Conclusion The left atrium is mildly dilated. The right atrium is dilated. The right ventricle is dilated, 5.2cm. Mild concentric left ventricular hypertrophy. There is a septal bounce noted. The other tay are grossly normal in function. Left ventricular systolic function is normal, estimated LVEF is 55 to 60%. Stage I diastolic dysfunction. Trace aortic regurgitation. Trace mitral regurgitation. Mild tricuspid regurgitation. PASP is 44 mmHg. No pericardial effusion.
[2024-04-30] VITALS (8 sets, daily range): BP systolic 118–152; BP diastolic 58–71; PULSE 68–91; RESP 18–20; TEMP 98.6–102.5; O2SAT 98
[2024-04-30 04:44] LABS: BASOPHILS # (AUTO) 0.05 K/uL (0.00-0.20); BASOPHILS % (AUTO) 0.4 % (0.0-5.0); EOSINOPHILS # (AUTO) 0.07 K/uL (0.00-0.70); EOSINOPHILS % (AUTO) 0.6 % (0.0-8.0); HEMATOCRIT 37.9 % (36-48); IMMATURE GRANULOCYTE ABSOLUTE 0.17 K/uL (0-1); LYMPHOCYTES # (AUTO) 0.8 K/uL (1.0-4.8); LYMPHOCYTES % (AUTO) 6.8 % (21.0-51.0); MEAN CORPUSCULAR HGB CONC 33.5 g/dL (32.0-36.0); MEAN CORPUSCULAR VOLUME 89.4 fL (79-99); MONOCYTES # (AUTO) 0.9 K/uL (0.1-1.0); MONOCYTES % (AUTO) 7.2 % (3.0-13.0); NEUTROPHILS # (AUTO) 10.4 K/uL (1.8-7.7); NEUTROPHILS % (AUTO) 83.6 % (40.0-77.0); PLATELET COUNT (AUTO) 86 K/uL (130-400); RED BLOOD CELL COUNT(AUTO) 4.24 MIL/uL (4.00-5.50); WHITE BLOOD COUNT (AUTO) 12.4 K/uL (4.8-10.8)
[2024-04-30 04:57] LABS: CREATININE 0.5 mg/dL (0.5-1.0); POTASSIUM 3.5 mmol/L (3.5-5.1)
[2024-04-30] MEDS: VANCOMYCIN 1G/250ML KIT 250 ML IV SCH (08:58)
--- NOTE | 2024-04-30 09:05 | PN ---
[facility] PROGRESS NOTE Date of Service: Apr 30, 2024 Time of Service: 09:02 SUBJECTIVE: 04/26 - patient is 58 year old female seen at bedside afebrile, HR 80, BP115/60, tachypneic on 4L nasal cannula. Patient complains of chills and feeling unwell. She continues be on Levophed and triple antibiotics - Vancomycin, Zosyn, Azithromycin. Remarkable labs: white count increased significantly from 3.5 to 35.2, platelets decreased significantly from 161K to 63K. Sodium 146, potassium 2.7, BUN and creatinine within normal range. Lactic acid trending down from 3.72 to 2.7, ABG pH 7.458, CO2 27, O2 59.9, HCO3 18.8, magnesium 1.3, procalcitonin elevated 1.16. BNP and troponins within normal range. CT abdomen/pelvis showed single air bubble in normal appearing left kidney, c onsistent with air refluxing into the kidney from the urinary bladder. Kidneys appear normal otherwise. A small amount of air is present in a nondistended urinary bladder there is a Segovia catheter in position, the air could represent emphysematous cystitis or be secondary to instrumentation. Gallbladder is absent. Potassium protocol initiated. If platelets continue to drop will consider ordering HIT panel and possibly holding Lovenox. Patient is being followed by critical care. We will continue to medically manage and follow recommendations. 04/27 - patient seen at bedside, afebrile heart rate 82, tachypneic on 3L nasal cannula, BP 86/39. Patient appears more comfortable but states she was unable to sleep due to CPAP machine and anxiety. Remarkable labs: white count trending down from 35.2 to 31.4, platelets up from 63K to 69K. Sodium 146, calcium 7.7, magnesium 1.9, procalcitonin 20.92, BUN and creatinine within normal range. Patient remains on vancomycin, zosyn, and azithromycin. Patient on Levophed and will continue to try to wean off. Patient had a central line placed on the right yesterday and tolerated the procedure well. Lovenox held due to low platelets. Will continue to monitor and medically manage and follow recommendations per critical care team. 04/28 - Patient seen at bedside accompanied by her daughter. She is comfortable, afebrile, on 3L nasal cannula. Patient nasal secretions negative for MRSA. Patient blood culture positive for e.coli. She is currently on Meropenem, no longer on vancomycin, Zosyn, and azithromycin. Remarkable labs: white count trending down from 31.4 to 23.7, platelets up from 69K to 72. chemistries within normal range. Patient was taken off Levophed yesterday but her blood pressure dropped and was placed on Levophed again. She remains on Levophed and will wean off. We will continue to monitor and medically manage and follow recommendations per critical care team. 04/30 - Patient seen at bedside. tmax 99.1, HR 72 on 2L nasal cannula. Patient had fever and chills last night. Infectious Disease consulted. Patient placed on Vancomycin to be dosed by pharmacy. Patient complains of blisters on tongue and chills this AM. Repeat blood cultures pending. She is on Vancomycin and Meropenem. She is no longer on Levophed and can discontinue telemetry per protocol. Chest xray shows mild pulmonary vascular congestion. Patient denies nausea, vomiting, diarrhea. Remarkable labs: white count trending from 13.3 to 6.4 to 12.4, today. platelets up from 77 to 64 to 86K today. We will continue to monitor and medically manage. We will follow recommendations per pulmonology and infectious disease. REVIEW OF SYSTEMS CONSTITUTIONAL: Complains of fevers, chills, denies night sweats. No unintentional weight loss reported. NEUROLOGICAL: Denies headache, amaurosis fugax, motor weakness, sensory deficit, vertigo/spinning sensation, gait abnormalities, or tremors. ENT: No hearing loss, otalgia, otorrhea, rhinitis, rhinorrhea, hoarseness, or sore throat. CARDIOVASCULAR: Denies any exertional angina, dyspnea on exertion, orthopnea, paroxysmal nocturnal dyspnea, palpitations, life-threatening arrhythmias, norberto ication. PULMONARY: Denies any shortness of breath, cough, phlegm/sputum, hemoptysis, pleuritic chest pain. SLEEP: Denies morning headaches, daytime somnolence or napping. Denies difficulty falling asleep, staying asleep, waking from sleep. Denies knowledge of snoring. GASTROINTESTINAL: Denies any type of dysphagia to either liquids or solids. Denies nausea, vomiting, pyrosis, early satiety, abdominal pain, diarrhea, constipation, or changes in stool consistency or caliber. Denies coffee-ground emesis, hematemesis, hematochezia, or melanotic stools. GENITOURINARY: Denies frequency, urgency, nocturia, hematuria or incontinence (Storage/Irritative symptoms.) Low urinary stream, straining to void, urinary intermittency or hesitancy, splitting of the voiding stream, terminal dribbling. ENDOCRINOLOGIC: Denies polyuria, polydipsia, polyphagia or heat/cold intolerances. HEMATOLOGIC: Denies thrombophilia/previous clots, or coagulopathy/bleeding disorders. ONCOLOGIC: Denies personal history of malignancy. DERMATOLOGIC: Denies rashes or pruritus. Complains of blisters on tongue. PSYCHIATRIC: Denies any suicidal or homicidal ideation. Denies hallucinations. PHYSICAL EXAM GENERAL APPEARANCE: The patient is awake, alert, and oriented, in no acute cardiopulmonary distress. NEUROLOGICAL: Cranial nerves II-XII grossly intact. Motor is 5/5 in bilateral upper and lower extremities proximal to distal. No sensory deficits. HEENT: Face is symmetric. Pupils are equal and reactive. Extraocular movements are intact. NECK: Supple. No JVD. No thyromegaly. No submental, submandibular, pre- /postauricular, occipital or supraclavicular lymphadenopathy. CHEST: Normal chest expansion. No Telemetry. LUNGS: Absence of any rales, positive for rhonchi Negative for any wheezing. CARDIOVASCULAR: Regular. S1 and S2 normal. No appreciable rubs, murmurs or gallops. ABDOMEN: Soft, nontender, and nondistended. There is no rebound, voluntary guarding, or rigidity. : Deferred. No Segovia. EXTREMITIES: Non-edematous and not cyanotic. No clubbing. Good capillary refill. SKIN: No skin breakdown. Vital Signs (last 8hr) Date Time Temp Pulse Resp B/P (MAP) Pulse Ox O2 Delivery O2 Flow Rate FiO2 04/30/24 08:00 99.1 72 19 118/60 98 Nasal Cannula 2.0 04/30/24 06:44 74 18 N/Cannula Low lpm 2.0 28 04/30/24 04:05 99.1 81 19 152/71 98 Nasal Cannula 2.0 LABS: Laboratory: Test 04/30/24 04:52 04/30/24 04:29 04/29/24 17:55 04/29/24 13:40 Range/Units Whole Blood Glucose 117 H 70-110 MG/DL White Blood Count 12.4 #H 4.8-10.8 K/uL Red Blood Count 4.24 4.00-5.50 MIL/uL Hemoglobin 12.7 12.0-16.0 g/dL Hematocrit 37.9 36-48 % Mean Corpuscular Volume 89.4 79-99 fL Mean Corpuscular Hemoglobin 30.0 27.0-33.0 pg Mean Corpuscular Hemoglobin Concent 33.5 32.0-36.0 g/dL Red Cell Distribution Width 15.0 11.0-15.5 % Platelet Count 86 #L 130-400 K/uL Mean Platelet Volume 11.0 H 7.5-10.5 fL Immature Granulocyte % (Auto) 1.4 H 0-1 % Neutrophils (%) (Auto) 83.6 H 40.0-77.0 % Lymphocytes (%) (Auto) 6.8 L 21.0-51.0 % Monocytes (%) (Auto) 7.2 3.0-13.0 % Eosinophils (%) (Auto) 0.6 0.0-8.0 % Basophils (%) (Auto) 0.4 0.0-5.0 % Neutrophils # (Auto) 10.4 H 1.8-7.7 K/uL Lymphocytes # (Auto) 0.8 L 1.0-4.8 K/uL Monocytes # (Auto) 0.9 0.1-1.0 K/uL Eosinophils # (Auto) 0.07 0.00-0.70 K/uL Basophils # (Auto) 0.05 0.00-0.20 K/uL Absolute Immature Granulocyte (auto 0.17 0-1 K/uL Nucleated Red Blood Cells 0.0 0.0-0.19 % Sodium Level 144 136-145 mmol/L Potassium Level 3.5 3.5-5.1 mmol/L Chloride Level 107 101-111 mmol/L Carbon Dioxide Level 29 21-32 mmol/L Blood Urea Nitrogen 7 7-18 mg/dL Creatinine 0.5 0.5-1.0 mg/dL Glomerular Filtration Rate Calc 108 >90 mL/min Random Glucose 127 H 70-105 mg/dL Total Calcium 8.3 L 8.5-10.1 mg/dL Procalcitonin 4.95 H 0.05-0.5 ng/mL Lactic Acid Level 1.6 0.8-2.5 mmol/L Influenza Type A Antigen Negative For Type A NEGATIVE Influenza Type B Antigen Negative For Type B NEGATIVE SARS-CoV-2, RNA, NAAT NEGATIVE SARS CoV-2 NEGATIVE Test 04/29/24 03:38 Range/Units Magnesium Level 1.70 L 1.80-2.40 mg/dL Current Medications Medications (Trade) Dose Ordered Sig/Karthik Route PRN Reason Start Time Stop Time Status Last Admin Dose Admin Acetaminophen (TYLenol 325MG TAB) 650 mg Q4H PRN PO MILD PAIN (1-3) 04/26/24 01:00 05/26/24 00:59 04/29/24 22:19 650 MG Acetaminophen (TYLenol 325MG TAB) 650 mg Q6H PRN PO TEMPERATURE GREATER THAN 101.5 04/26/24 01:00 05/26/24 00:59 04/29/24 16:22 650 MG Acetaminophen/ Butalbital/ Caffeine (Ylgbfztn-Amnuduiswlzud-Bcyw Tb) 1 each BID PRN PO TENSION HEADACHE 04/27/24 13:30 05/27/24 13:29 Azithromycin 250 ml @ 250 mls/hr ONCE IVPB 04/26/24 00:00 04/28/24 06:39 DC 04/28/24 00:24 250 MLS/HR Enoxaparin Sodium (Lovenox) 40 mg DAILY SQ 04/26/24 09:00 05/26/24 08:59 04/29/24 08:35 40 MG Famotidine (Pepcid 20mg Tab) 20 mg DAILY PO 04/26/24 09:00 05/26/24 08:59 04/29/24 08:35 20 MG Insulin Human Regular (humuLIN R 100 UNIT/ML 3ML) INSULIN SLIDING SCAL... ACHS SQ 04/26/24 07:30 05/26/24 07:29 04/28/24 21:11 4 UNIT Lactated Ringer's 1,000 ml @ 100 mls/hr Q10H IV 04/26/24 01:00 05/26/24 00:59 04/29/24 20:34 100 MLS/HR Lactated Ringer's (Lactated Ringers 1000ml) 1,000 ml ONCE IV 04/29/24 15:00 04/29/24 21:00 DC 04/29/24 15:48 1,000 ML Magnesium Sulfate 50 ml @ 0 mls/hr PROTOCOL PRN IV hypomagnesemia 04/26/24 01:00 05/26/24 00:59 04/29/24 04:53 25 MLS/HR Meropenem 1 gm/ Sodium Chloride 100 ml @ 33.333 mls/ hr Q8H IVPB 04/27/24 13:00 05/07/24 12:59 04/30/24 05:59 33.333 MLS/HR Midodrine (PROAMatine 5 MG TABLET) 10 mg TID PO 04/28/24 11:00 05/28/24 10:59 04/29/24 20:34 10 MG Morphine Sulfate (morPHINE 2MG SYG) 2 mg Q4H PRN IV SEVERE PAIN (7-10) 04/26/24 01:30 05/03/24 01:29 Norepinephrine 250 ml @ 0 mls/hr PROTOCOL IV 04/26/24 00:00 04/27/24 01:22 DC 04/26/24 21:11 58 MLS/HR Norepinephrine Bitartrate 32 mg/ Sodium Chloride 250 ml @ 0 mls/hr Q0M PRN IV ADMINISTER FOR SBP/DBP> 04/27/24 01:30 04/29/24 11:56 DC 04/27/24 02:00 27 MLS/HR Ondansetron HCl (zoFRAN 4MG INJ) 4 mg Q6H PRN IV NAUSEA/VOMITING 04/26/24 01:00 05/26/24 00:59 Pharmacy Profile Note (Pharmacy Communication) 1 each ONCE MISC 04/27/24 13:00 04/27/24 13:07 DC Piperacillin Sod/ Tazobactam Sod 50 ml @ 12.5 mls/hr ZOSY8 IV 04/26/24 05:00 04/27/24 12:58 DC 04/27/24 12:50 12.5 MLS/HR Potassium Chloride 100 ml @ 100 mls/hr AD PRN IV POTASSIUM PROTOCOL 04/26/24 01:00 05/26/24 00:59 04/29/24 04:54 100 MLS/HR Potassium Chloride (K-Dur/Klor-Con 20meq) 20 meq AD PRN PO POTASSIUM PROTOCOL 04/26/24 01:00 05/26/24 00:59 04/28/24 08:46 20 MEQ Potassium Chloride (K-Dur/Klor-Con 20meq) 20 meq AD PRN PO POTASSIUM PROTOCOL 04/29/24 09:00 04/29/24 08:45 DC Potassium Chloride (KCl 10% Elixir 20meq/15ml) 20 meq AD PRN PO POTASSIUM PROTOCOL 04/26/24 01:00 05/26/24 00:59 04/26/24 06:39 20 MEQ Potassium Chloride (KCl 10% Elixir 20meq/15ml) 20 meq AD PRN PO POTASSIUM PROTOCOL 04/29/24 09:00 04/29/24 08:44 DC Vancomycin HCl 250 ml @ 125 mls/hr Q12H IV 04/26/24 11:30 04/27/24 12:58 DC 04/27/24 12:50 125 MLS/HR Vancomycin HCl 250 ml @ 125 mls/hr Q12H9 IV 04/30/24 09:00 05/10/24 08:59 Vancomycin HCl 250 ml @ 125 mls/hr Q8H6 IV 04/27/24 14:00 04/27/24 12:58 DC Vancomycin HCl 500 ml @ 250 mls/hr ONCE IV 04/29/24 17:30 04/29/24 21:30 DC 04/29/24 20:34 250 MLS/HR Vancomycin HCl (Vancomycin Protocol) 1 each AD IV 04/26/24 07:00 04/27/24 12:58 DC Vancomycin HCl (Vancomycin Protocol) 1 each AD IV 04/29/24 16:00 05/13/24 15:59 Vasopressin 40 units/Sodium Chloride 42 ml @ 0 mls/hr AD PRN IV TITRATE 04/27/24 18:00 04/27/24 17:45 DC DIAGNOSTICS / RADIOLOGY: [address] [address] IMAGING REPORT Signed PATIENT: CLARK SOLIS MR#: [id number] : 1965 SEX: F AGE: 58 LOCATION: 2BH ORDER 1155 STATUS: ADM IN REPORT#: [id number] SERVICE 1153 REASON: hypoxia, OHS ORDERING PHYSICIAN: KB FERNANDEZ CNP PROCEDURE: CXR1VW - CHEST 1VW PORTABLE CHEST RADIOGRAPH INDICATION: hypoxia, OHS COMPARISON: 04/26/2024 FINDINGS: equipment monitor phototypesetting leads overlie the field of view. Stable right IJ catheter. Heart size is normal. Pulmonary vascularity is slightly enlarged. No abnormal pulmonary parenchymal opacity or consolidation identified. No significant pleural effusion noted. No pneumothorax detected. IMPRESSION: Mild pulmonary vascular congestion. DICTATED BY: MEY SMITH MD DATE: 04/29/24 1227 ELECTRONICALLY SIGNED BY: MEY SMITH MD DATE: 04/29/24 1231 [place] [address] IMAGING REPORT Signed PATIENT: CLARK SOLIS MR#: [id number] : 1965 SEX: F AGE: 58 LOCATION: [facility] ORDER [id number] STATUS: ADM IN REPORT#: [id number] SERVICE 1519 REASON: Evaluate systolic and valve function, hypotension ORDERING PHYSICIAN: KB FERNANDEZ CNP PROCEDURE: ECHO CMP - ECHO 2-D COMPLETE APPROVED REPORT EXAM: Two-dimensional and M-mode echocardiogram with Doppler and color Doppler. Study Details: HTN ,HLD, Diabts M INDICATION ICD: Assess LV Function 2D Dimensions RVDd 5.2 cm LVEF(%) 66.9 (>50%) LA ESV INDEX (4CH) 18.70 mL/m2 IVSd 0.7 (0.7-1.1cm) FS(%) 38 % LVDd 5.6 (3.8-5.6cm) LA (2D) 3.7 (1.6-4.0cm) PWd 1.0 (0.7-1.1cm) Ao Root(2D) 3.0 (2.0-3.7cm) IVSs 1.3 cm LVOT diam 2.0 (1.8-2.4cm) LVDs 3.5 (2.5-4.0cm) PWs 1.4 cm Deformation Strain Apical 4 22.0 % Apical 2 20.0 % Apical 3 14.0 % Global Strain 19.0 % M-Mode Dimensions EPSS 0.9 cm LA (MM) 5.0 (1.6-4.0cm) Ao Root(MM) 2.9 (2.0-3.7cm) Aortic Valve AoV VTI 0.3 m Ao Mean GR 4.0 mmHg LVOT VTI 0.18 m NEAL (VMAX) 2.0 cm2 NEAL (VTI) 2.0 cm2 Mitral Valve MV E Vmax 62.6 cm/s DECEL Time 190 ms MV A Vmax 77.6 cm/s P 1/2 T 55 ms E/A ratio 0.8 MVA (PHT) 4.0 cm2 TDI E/E' Medial 10.6 E/E' Lateral 9.8 Medial E' Peak V 5.90 cm/s Lateral E' Peak V 6.40 cm/s Pulmonary Valve PV VTI 0.16 m PV Mean GR 1 mmHg Tricuspid Valve TR Vmax 2.7 m/s TR Peak GR 28.9 mmHg Left Ventricle The left ventricle is normal size. There is a septal bounce noted. The other tay are grossly normal in function. Mild concentric left ventricular hypertrophy. Left ventricular systolic function is normal, estimated LVEF is 55 to 60%. Stage I diastolic dysfunction. Right Ventricle The right ventricle is dilated, 5.2cm. The right ventricular systolic function is grossly normal Atria The left atrium is mildly dilated. The right atrium is dilated. Aortic Valve Aortic valve is trileaflet. The leaflets are mild thickened and calcified. Trace aortic regurgitation. There is no aortic valvular stenosis. Mitral Valve The mitral valve is normal in structure. Trace mitral regurgitation. There is no mitral valve stenosis. Tricuspid Valve The tricuspid valve is normal in structure. Mild tricuspid regurgitation. RVSP is 29 mmHg. Pulmonic Valve Pulmonic valve is not well visualized. Great Vessels The aortic root is normal in size. The ascending aorta is normal in size. IVC is dilated and collapses < 50% with inspiration. Pericardium No pericardial effusion. Conclusion The left atrium is mildly dilated. The right atrium is dilated. The right ventricle is dilated, 5.2cm. Mild concentric left ventricular hypertrophy. There is a septal bounce noted. The other tay are grossly normal in function. Left ventricular systolic function is normal, estimated LVEF is 55 to 60%. Stage I diastolic dysfunction. Trace aortic regurgitation. Trace mitral regurgitation. Mild tricuspid regurgitation. PASP is 44 mmHg. No pericardial effusion. ASSESSMENT: Septic Shock - resolved Hypotension requiring vasopressor (Levophed) support - resolved Elevated lactic acid - resolved Neutropenia - POA Diabetes mellitus type II - POA Hypertension - POA OSH/ADAL - POA being treated at home with CPAP Morbid obesity BMI 49.8 PLAN: Septic Shock - POA Hypotension requiring vasopressor (Levophed) support - POA Elevated lactic acid - POA Neutropenia - POA - fluid resuscitation - received 4L in total - Blood cultures - E. coli - treat with Meropenem and Vancomycin to be dosed by pharmacy - ID consult - recheck labs in the am - monitor platelets and restart Lovenox Diabetes mellitus type II - POA - check hemoglobin A1c in the am - glucometer checks a.c. and HS - 1800 ADA diet - Humulin R sliding scale one Hypertension - POA - avoid antihypertensive medications at this time due to hypotension GI prophy - famotidine 20 mg PO QD DTV prophy - Lovenox 40 mg subQ QD Will continue to follow recommendations per pulmonolgy Will continue to follow recommendations per Infectious Disease ATTESTATION BY PHYSICIAN I have seen and examined the patient. I reviewed the documentation, medical decision making, and treatment plan as noted by the resident provider above. I agree with the findings and plan of care. Patrice Nazario MD, PRIYA N Apr 30, 2024 09:05
--- NOTE | 2024-04-30 09:49 | PN ---
[facility] PROGRESS NOTE Date Patient Seen: Apr 30, 2024 Time of Visit: 09:44 Supervising Physician: [Dr. Caceres] Consulting Physician: [facility] Outpatient Specialists: JULIO CESAR Inpatient Consults: Dr. Alvarado PROBLEM LIST: Shock state- septic shock, resolved Gram negative bacteremia- E Coli, treated Gram negative acute complicated cystitis- E-Coli Community acquired pneumonia, treated Acute hypoxic respiratory failure, POA Left flank pain, Lactic acidosis, resolved POA DM type 2, with hyperglycemia, POA Morbid obesity BMI 43 OHS/ ADAL- home CPAP PLAN: Repeat blood culture Continue merrem Monitor fever, s/s of infection CBC in AM Continue with IVF Off of levophed Ambulation CPAP at night INTERVAL HISTORY: 04/26 patient is awake alert and oriented x3 lying down in bed not in acute distress. Patient is on 4 L nasal cannula saturation oxygen 100%. We we will wean oxygen as tolerated to keep sats greater 92%. Given BMI of 43 and bicarb was 28 in admission, patient might have OHS/ADAL. We can place a CPAP at night a s tolerated. Otherwise lab this morning with sodium 146 this is up from 140 to potassium is 2.7. Chloride is 112. Lactic acid is down to 2.7 procalcitonin is 1.16. Check MRSA swab so we can discontinue vancomycin if negative. Otherwise continue Zosyn. CT scan of the abdomen is showing Single air bubble in the left kidney, no perinephric fat stranding, UA is with negative nitrites and leukocyte esterase but has WBC of 6-10, non bacteria. Continue to follow cultures. Continue to wean Levophed as tolerated. Keep map greater than 65. Keep in ICU given vasopressor requirement. 04/27 patient is awake alert and oriented x3 up in the chair not in acute distress. She is complaining of headache, she is used to drinking coffee every day, so we will give her Fioricet p.r.n.. She was weaned off of the Levophed drip this morning but he had to be restarted given that her blood pressure dropped again. Otherwise she is growing Gram-negative rods in the blood and in the urine WBC is down to 31 from 35 but given that she is remaining on vasopressors and thrombocytopenic, we will up the antibiotic coverage to meropenem for concern of ESBL, discontinue Zosyn. We can discontinue vancomycin as well. We can wean down abx when sensitivity is available. Keep in ICU if rem ains on vasopressors. 04/28-Patient seen at bedside stable and orientedx3. afebrile, 95% on 3L nasal cannula, BP 104/46, Patient nasal secretions negative for MRSA. Patient blood culture positive for e.coli. She is currently on Meropenem. Remarkable labs: white count trending down from 31.4 to 23.7, platelets up from 69K to 72. chemistries within normal range. Patient was taken off Levophed yesterday but her blood pressure dropped and was placed on Levophed again. She remains on Levophed and will try wean off, placed on midodrin TId. Give IVF LR bolus for now. Obtain 2Decho to evaluate for systolic and valve function given refractory hypotension. We will repeat procalcitonin and lactic acid. will De escalate merem if procal is normalized. Will discontinue pedraza catheter. Transfer out of ICU if remains off pressor. 04/29 patient is awake alert oriented x3 not in acute distress. She has been weaned off the Levophed yesterday blood pressure is 112/52 map 72. Heart rate is 75. Patient feels a little bit warm T-max 99.9. Her WBC is down to 13 from 23K and platelet count is 77. Her procalcitonin is 5.7 this is down from 6 yest erday. Overall improvement in sepsis but given low grade fever, will continue current regimen till tomorrow. Her chemistry is unremarkable except for magnesium which we have replaced with electrolyte per protocol. Her pedraza cath has been removed yesterday. Otherwise she is stable at this time we can discontinue central line in the right IJ. Obtain chest x-ray for hypoxia. ohs. CPAP at night. Downgrade to med-surg. 04/30 patient had low-grade temperature of 99.1 F overnight her white blood count did jump from 6-12. She continues on meropenem. Her repeat blood cultures are growing Gram-negative rods, we will order another set of blood cultures to ensure adequate treatment. She continues hypoxic on 2 L NC. Her blood pressure is maintaining we will off of vasopressors. Right IJ has been discontinued. Has diuresed 1700 mL of urine output overnight. Her echocardiogram shows no evidence of vegetation. REVIEW OF SYSTEMS: 12 point ROS reviewed with patient. Pertinent positives mentioned above. Otherwise negative. PHYSICAL EXAM: GENERAL: alert, weak, awake oriented x 3 HEENT: EOMI, Sclera non icteric, moist mucosa NECK: Supple, no JVD, trachea midline LUNGS: Coarse bilateral lung sounds, tachypneic HEART: Regular rate and rhythm. Normal S1 and S2, without murmurs ABD: Large habitus EXT: No clubbing cyanosis or edema NEURO: Alert and oriented to person, follows commands Vital Signs (last 8hr) Date Time Temp Pulse Resp B/P (MAP) Pulse Ox O2 Delivery O2 Flow Rate FiO2 04/30/24 08:00 99.1 72 19 118/60 98 Nasal Cannula 2.0 04/30/24 06:44 74 18 N/Cannula Low lpm 2.0 28 04/30/24 04:05 99.1 81 19 152/71 98 Nasal Cannula 2.0 LABS: Hematology Labs: Test 04/30/24 04:29 Range/Units White Blood Count 12.4 #H 4.8-10.8 K/uL Red Blood Count 4.24 4.00-5.50 MIL/uL Hemoglobin 12.7 12.0-16.0 g/dL Hematocrit 37.9 36-48 % Mean Corpuscular Volume 89.4 79-99 fL Mean Corpuscular Hemoglobin 30.0 27.0-33.0 pg Mean Corpuscular Hemoglobin Concent 33.5 32.0-36.0 g/dL Red Cell Distribution Width 15.0 11.0-15.5 % Platelet Count 86 #L 130-400 K/uL Mean Platelet Volume 11.0 H 7.5-10.5 fL Immature Granulocyte % (Auto) 1.4 H 0-1 % Neutrophils (%) (Auto) 83.6 H 40.0-77.0 % Lymphocytes (%) (Auto) 6.8 L 21.0-51.0 % Monocytes (%) (Auto) 7.2 3.0-13.0 % Eosinophils (%) (Auto) 0.6 0.0-8.0 % Basophils (%) (Auto) 0.4 0.0-5.0 % Neutrophils # (Auto) 10.4 H 1.8-7.7 K/uL Lymphocytes # (Auto) 0.8 L 1.0-4.8 K/uL Monocytes # (Auto) 0.9 0.1-1.0 K/uL Eosinophils # (Auto) 0.07 0.00-0.70 K/uL Basophils # (Auto) 0.05 0.00-0.20 K/uL Absolute Immature Granulocyte (auto 0.17 0-1 K/uL Nucleated Red Blood Cells 0.0 0.0-0.19 % Chemistry Labs: Test 04/30/24 04:52 04/30/24 04:29 04/29/24 17:55 04/29/24 03:38 Range/Units Whole Blood Glucose 117 H 70-110 MG/DL Sodium Level 144 136-145 mmol/L Potassium Level 3.5 3.5-5.1 mmol/L Chloride Level 107 101-111 mmol/L Carbon Dioxide Level 29 21-32 mmol/L Blood Urea Nitrogen 7 7-18 mg/dL Creatinine 0.5 0.5-1.0 mg/dL Glomerular Filtration Rate Calc 108 >90 mL/min Random Glucose 127 H 70-105 mg/dL Total Calcium 8.3 L 8.5-10.1 mg/dL Procalcitonin 4.95 H 0.05-0.5 ng/mL Lactic Acid Level 1.6 0.8-2.5 mmol/L Magnesium Level 1.70 L 1.80-2.40 mg/dL DIAGNOSTICS / RADIOLOGY RESULTS: Conclusion The left atrium is mildly dilated. The right atrium is dilated. The right ventricle is dilated, 5.2cm. Mild concentric left ventricular hypertrophy. There is a septal bounce noted. The other tay are grossly normal in function. Left ventricular systolic function is normal, estimated LVEF is 55 to 60%. Stage I diastolic dysfunction. Trace aortic regurgitation. Trace mitral regurgitation. Mild tricuspid regurgitation. PASP is 44 mmHg. No pericardial effusion. PLAN NEURO: Minimize central acting medications as possible. Maintain fall precautions, adequate lighting during the day PULMONARY: Supplemental 02 as needed. Maintain aspiration precautions at all times CARDIOVASCULAR: Follow hemodynamics. Vital signs per facility protocol GI & NUTRITION: Continue with nutritional support. Continue stool softeners and laxatives as needed. KIDNEYS & ELECTROLYTES: Strict monitoring of intake, output and overall fluid balance. Avoid nephrotoxic medications to the extent possible. Medications to be dosed according to renal function. Monitor electrolytes and replace as needed ENDOCRINE: Maintain blood glucose between 100-180 at all times. Hypoglycemia protocol in place INFECTIOUS DISEASE: Trend temperature, WBC and procalcitonin level Follow cultures, deescalate antibiotics as soon as possible. Panculture if new onset fever ONCOLOGY/HEMATOLOGY/COAGULATION: Monitor for s/s of bleeding Monitor hemoglobin, coagulation studies as needed SKIN: Pressure ulcer prevention per facility protocol Specialty mattress ORTHO/REHAB: Continue PT/OT Prophylaxis: Continue GI and DVT prophylaxis Code Status: Full Resuscitation Disposition: TBD Other: Total patient care time exceeds 46 minutes excluding all procedures. BRISA WINTER Apr 30, 2024 09:49
[2024-04-30] MEDS: ACYCLOVIR 200 MG CAPSULE PO SCH (13:08)
[2024-04-30] MEDS: LIDOCAINE HCL 2% VISCOUS 15 ML UDCUP PO PRN (13:09)
[2024-04-30 20:52] LABS: APPEARANCE,URINE CLEAR (CLEAR); BILIRUBIN,URINE NEGATIVE (NEGATIVE); COLOR,URINE LIGHT-YELLOW (YELLOW); GLUCOSE, URINE (UA) 70 mg/dL (NEGATIVE); KETONES,URINE 40 mg/dL (NEGATIVE); LEUKOCYTE ESTERASE ,URINE NEGATIVE Leu/uL (NEGATIVE); NITRATE,URINE NEGATIVE (NEGATIVE); OCCULT BLOOD,URINE NEGATIVE (NEGATIVE); PH,URINE 7.5 (5.0-8.0); PROTEIN,URINE NEGATIVE (NEGATIVE); UROBILINOGEN,URINE 3 mg/dL (0.2-1.0)
[2024-04-30 21:19] LABS: ADD UA MICROSCOPIC YES
[2024-04-30 21:21] LABS: MUCUS,URINE RARE LPF (None Seen); SQUAMOUS EPITHELIAL CELL,UR RARE /HPF (0-2); WBC,URINE 0-1 /HPF (0-1)
[2024-05-01] VITALS (11 sets, daily range): BP systolic 110–165; BP diastolic 54–74; PULSE 69–99; RESP 16–20; TEMP 98–100; O2SAT 96–98
[2024-05-01] MEDS: VANCOMYCIN 1.25 GM/250 ML BAG 250 ML IV SCH (08:50)
--- NOTE | 2024-05-01 09:21 | PN ---
[facility] PROGRESS NOTE Date of Service: May 01, 2024 Time of Service: 09:16 SUBJECTIVE: 04/26 - patient is 58 year old female seen at bedside afebrile, HR 80, BP115/60, tachypneic on 4L nasal cannula. Patient complains of chills and feeling unwell. She continues be on Levophed and triple antibiotics - Vancomycin, Zosyn, Azithromycin. Remarkable labs: white count increased significantly from 3.5 to 35.2, platelets decreased significantly from 161K to 63K. Sodium 146, potassium 2.7, BUN and creatinine within normal range. Lactic acid trending down from 3.72 to 2.7, ABG pH 7.458, CO2 27, O2 59.9, HCO3 18.8, magnesium 1.3, procalcitonin elevated 1.16. BNP and troponins within normal range. CT abdomen/pelvis showed single air bubble in normal appearing left kidney, c onsistent with air refluxing into the kidney from the urinary bladder. Kidneys appear normal otherwise. A small amount of air is present in a nondistended urinary bladder there is a Segovia catheter in position, the air could represent emphysematous cystitis or be secondary to instrumentation. Gallbladder is absent. Potassium protocol initiated. If platelets continue to drop will consider ordering HIT panel and possibly holding Lovenox. Patient is being followed by critical care. We will continue to medically manage and follow recommendations. 04/27 - patient seen at bedside, afebrile heart rate 82, tachypneic on 3L nasal cannula, BP 86/39. Patient appears more comfortable but states she was unable to sleep due to CPAP machine and anxiety. Remarkable labs: white count trending down from 35.2 to 31.4, platelets up from 63K to 69K. Sodium 146, calcium 7.7, magnesium 1.9, procalcitonin 20.92, BUN and creatinine within normal range. Patient remains on vancomycin, zosyn, and azithromycin. Patient on Levophed and will continue to try to wean off. Patient had a central line placed on the right yesterday and tolerated the procedure well. Lovenox held due to low platelets. Will continue to monitor and medically manage and follow recommendations per critical care team. 04/28 - Patient seen at bedside accompanied by her daughter. She is comfortable, afebrile, on 3L nasal cannula. Patient nasal secretions negative for MRSA. Patient blood culture positive for e.coli. She is currently on Meropenem, no longer on vancomycin, Zosyn, and azithromycin. Remarkable labs: white count trending down from 31.4 to 23.7, platelets up from 69K to 72. chemistries within normal range. Patient was taken off Levophed yesterday but her blood pressure dropped and was placed on Levophed again. She remains on Levophed and will wean off. We will continue to monitor and medically manage and follow recommendations per critical care team. 04/30 - Patient seen at bedside. tmax 99.1, HR 72 on 2L nasal cannula. Patient had fever and chills last night. Infectious Disease consulted. Patient placed on Vancomycin to be dosed by pharmacy. Patient complains of blisters on tongue and chills this AM. Repeat blood cultures pending. She is on Vancomycin and Meropenem. She is no longer on Levophed and can discontinue telemetry per protocol. Chest xray shows mild pulmonary vascular congestion. Patient denies nausea, vomiting, diarrhea. Remarkable labs: white count trending from 13.3 to 6.4 to 12.4, today. platelets up from 77 to 64 to 86K today. We will continue to monitor and medically manage. We will follow recommendations per pulmonology and infectious disease. 05/01 - Patient seen at bedside. Temp 98.8, HR 80, on room air. Patient states she is feeling better than previous day. Her white count continues to trend down from 12.4 to 11.3. Chemistries are WNL. Patient remains on Vancomycin being dosed by pharmacy - trough is 5.5, Meropenem, and Acyclovir. Respiratory sputum culture results show Jes Albicans and gram positive cocci. Second blood cultures results pending. We will continue to monitor and medically manage and follow recommendations per Infectious Disease and Pulmonology. REVIEW OF SYSTEMS CONSTITUTIONAL: Complains of fevers, chills, denies night sweats. No unintentional weight loss reported. NEUROLOGICAL: Denies headache, amaurosis fugax, motor weakness, sensory deficit, vertigo/spinning sensation, gait abnormalities, or tremors. ENT: No hearing loss, otalgia, otorrhea, rhinitis, rhinorrhea, hoarseness, or sore throat. CARDIOVASCULAR: Denies any exertional angina, dyspnea on exertion, orthopnea, paroxysmal nocturnal dyspnea, palpitations, life-threatening arrhythmias, claudication. PULMONARY: Denies any shortness of breath, cough, phlegm/sputum, hemoptysis, pleuritic chest pain. SLEEP: Denies morning headaches, daytime somnolence or napping. Denies difficulty falling asleep, staying asleep, waking from sleep. Denies knowledge of snoring. GASTROINTESTINAL: Denies any type of dysphagia to either liquids or solids. Denies nausea, vomiting, pyrosis, early satiety, abdominal pain, diarrhea, constipation, or changes in stool consistency or caliber. Denies coffee-ground emesis, hematemesis, hematochezia, or melanotic stools. GENITOURINARY: Denies frequency, urgency, nocturia, hematuria or incontinence (Storage/Irritative symptoms.) Low urinary stream, straining to void, urinary intermittency or hesitancy, splitting of the voiding stream, terminal dribbling. ENDOCRINOLOGIC: Denies polyuria, polydipsia, polyphagia or heat/cold intolerances. HEMATOLOGIC: Denies thrombophilia/previous clots, or coagulopathy/bleeding disorders. ONCOLOGIC: Denies personal history of malignancy. DERMATOLOGIC: Denies rashes or pruritus. Complains of blisters on tongue. PSYCHIATRIC: Denies any suicidal or homicidal ideation. Denies hallucinations. PHYSICAL EXAM GENERAL APPEARANCE: The patient is awake, alert, and oriented, in no acute cardiopulmonary distress. NEUROLOGICAL: Cranial nerves II-XII grossly intact. Motor is 5/5 in bilateral upper and lower extremities proximal to distal. No sensory deficits. HEENT: Face is symmetric. Pupils are equal and reactive. Extraocular movements are intact. NECK: Supple. No JVD. No thyromegaly. No submental, submandibular, pre- /postauricular, occipital or supraclavicular lymphadenopathy. CHEST: Normal chest expansion. No Telemetry. LUNGS: Absence of any rales, positive for rhonchi Negative for any wheezing. CARDIOVASCULAR: Regular. S1 and S2 normal. No appreciable rubs, murmurs or gallops. ABDOMEN: Soft, nontender, and nondistended. There is no rebound, voluntary guarding, or rigidity. : Deferred. No Segovia. EXTREMITIES: Non-edematous and not cyanotic. No clubbing. Good capillary refill. SKIN: No skin breakdown. Vital Signs (last 8hr) Date Time Temp Pulse Resp B/P (MAP) Pulse Ox O2 Delivery O2 Flow Rate FiO2 05/01/24 08:00 98.8 80 18 136/65 93 Room Air 05/01/24 07:20 18 N/Cannula Low lpm 2.0 28 05/01/24 04:00 98.8 74 20 115/60 90 Room Air LABS: Laboratory: Test 05/01/24 07:55 05/01/24 05:21 04/30/24 04:29 04/29/24 20:44 Range/Units Vancomycin Level Trough 5.5 L 10.0-20.0 UG/ML Whole Blood Glucose 126 H 70-110 MG/DL White Blood Count 12.4 #H 4.8-10.8 K/uL Red Blood Count 4.24 4.00-5.50 MIL/uL Hemoglobin 12.7 12.0-16.0 g/dL Hematocrit 37.9 36-48 % Mean Corpuscular Volume 89.4 79-99 fL Mean Corpuscular Hemoglobin 30.0 27.0-33.0 pg Mean Corpuscular Hemoglobin Concent 33.5 32.0-36.0 g/dL Red Cell Distribution Width 15.0 11.0-15.5 % Platelet Count 86 #L 130-400 K/uL Mean Platelet Volume 11.0 H 7.5-10.5 fL Immature Granulocyte % (Auto) 1.4 H 0-1 % Neutrophils (%) (Auto) 83.6 H 40.0-77.0 % Lymphocytes (%) (Auto) 6.8 L 21.0-51.0 % Monocytes (%) (Auto) 7.2 3.0-13.0 % Eosinophils (%) (Auto) 0.6 0.0-8.0 % Basophils (%) (Auto) 0.4 0.0-5.0 % Neutrophils # (Auto) 10.4 H 1.8-7.7 K/uL Lymphocytes # (Auto) 0.8 L 1.0-4.8 K/uL Monocytes # (Auto) 0.9 0.1-1.0 K/uL Eosinophils # (Auto) 0.07 0.00-0.70 K/uL Basophils # (Auto) 0.05 0.00-0.20 K/uL Absolute Immature Granulocyte (auto 0.17 0-1 K/uL Nucleated Red Blood Cells 0.0 0.0-0.19 % Sodium Level 144 136-145 mmol/L Potassium Level 3.5 3.5-5.1 mmol/L Chloride Level 107 101-111 mmol/L Carbon Dioxide Level 29 21-32 mmol/L Blood Urea Nitrogen 7 7-18 mg/dL Creatinine 0.5 0.5-1.0 mg/dL Glomerular Filtration Rate Calc 108 >90 mL/min Random Glucose 127 H 70-105 mg/dL Total Calcium 8.3 L 8.5-10.1 mg/dL Procalcitonin 4.95 H 0.05-0.5 ng/mL Urine Color LIGHT-YELLOW YELLOW Urine Appearance CLEAR CLEAR Urine pH 7.5 5.0-8.0 Urine Specific [place] 1.014 1.001-1.031 Urine Protein NEGATIVE NEGATIVE mg/dL Urine Glucose (UA) 70 H NEGATIVE mg/dL Urine Ketones 40 H NEGATIVE mg/dL Urine Occult Blood NEGATIVE NEGATIVE Urine Nitrate NEGATIVE NEGATIVE Urine Bilirubin NEGATIVE NEGATIVE mg/dL Urine Urobilinogen 3 H 0.2-1.0 mg/dL Urine Leukocyte Esterase NEGATIVE NEGATIVE Sandor/uL Urine RBC 2-5 H 0-1 /HPF Urine WBC 0-1 0-1 /HPF Urine Squamous Epithelial Cells RARE 0-2 /HPF Urine Bacteria None None Seen /HPF Test 04/29/24 17:55 04/29/24 13:40 Range/Units Lactic Acid Level 1.6 0.8-2.5 mmol/L Influenza Type A Antigen Negative For Type A NEGATIVE Influenza Type B Antigen Negative For Type B NEGATIVE SARS-CoV-2, RNA, NAAT NEGATIVE SARS CoV-2 NEGATIVE Current Medications Medications (Trade) Dose Ordered Sig/Karthik Route PRN Reason Start Time Stop Time Status Last Admin Dose Admin Acetaminophen (TYLenol 325MG TAB) 650 mg Q4H PRN PO MILD PAIN (1-3) 04/26/24 01:00 05/26/24 00:59 05/01/24 06:02 650 MG Acetaminophen (TYLenol 325MG TAB) 650 mg Q6H PRN PO TEMPERATURE GREATER THAN 101.5 04/26/24 01:00 05/26/24 00:59 04/30/24 19:32 650 MG Acetaminophen/ Butalbital/ Caffeine (Dhmqzvvy-Xjkgybbvajzki-Buex Tb) 1 each BID PRN PO TENSION HEADACHE 04/27/24 13:30 05/27/24 13:29 Acyclovir (Zovirax 200mg Cap) 400 mg TID PO 04/30/24 14:00 05/30/24 13:59 05/01/24 08:45 400 MG Azithromycin 250 ml @ 250 mls/hr ONCE IVPB 04/26/24 00:00 04/28/24 06:39 DC 04/28/24 00:24 250 MLS/HR Enoxaparin Sodium (Lovenox) 40 mg DAILY SQ 04/26/24 09:00 05/26/24 08:59 04/29/24 08:35 40 MG Famotidine (Pepcid 20mg Tab) 20 mg DAILY PO 04/26/24 09:00 05/26/24 08:59 05/01/24 08:45 20 MG Insulin Human Regular (humuLIN R 100 UNIT/ML 3ML) INSULIN SLIDING SCAL... ACHS SQ 04/26/24 07:30 05/26/24 07:29 04/28/24 21:11 4 UNIT Lactated Ringer's 1,000 ml @ 100 mls/hr Q10H IV 04/26/24 01:00 05/26/24 00:59 05/01/24 01:13 100 MLS/HR Lactated Ringer's (Lactated Ringers 1000ml) 1,000 ml ONCE IV 04/29/24 15:00 04/29/24 21:00 DC 04/29/24 15:48 1,000 ML Lidocaine HCl (Lidocaine HCl 2% Viscous) 10 ml TID PRN PO MOUTH SORES 04/30/24 12:00 05/30/24 11:59 04/30/24 13:09 10 ML Magnesium Sulfate 50 ml @ 0 mls/hr PROTOCOL PRN IV hypomagnesemia 04/26/24 01:00 05/26/24 00:59 04/29/24 04:53 25 MLS/HR Meropenem 1 gm/ Sodium Chloride 100 ml @ 33.333 mls/ hr Q8H IVPB 04/27/24 13:00 05/07/24 12:59 05/01/24 06:00 33.333 MLS/HR Midodrine (PROAMatine 5 MG TABLET) 10 mg TID PO 04/28/24 11:00 05/28/24 10:59 04/30/24 08:58 10 MG Morphine Sulfate (morPHINE 2MG SYG) 2 mg Q4H PRN IV SEVERE PAIN (7-10) 04/26/24 01:30 05/01/24 04:29 DC Norepinephrine 250 ml @ 0 mls/hr PROTOCOL IV 04/26/24 00:00 04/27/24 01:22 DC 04/26/24 21:11 58 MLS/HR Norepinephrine Bitartrate 32 mg/ Sodium Chloride 250 ml @ 0 mls/hr Q0M PRN IV ADMINISTER FOR SBP/DBP> 04/27/24 01:30 04/29/24 11:56 DC 04/27/24 02:00 27 MLS/HR Ondansetron HCl (zoFRAN 4MG INJ) 4 mg Q6H PRN IV NAUSEA/VOMITING 04/26/24 01:00 05/26/24 00:59 Pharmacy Profile Note (Pharmacy Communication) 1 each ONCE MISC 04/27/24 13:00 04/27/24 13:07 DC Piperacillin Sod/ Tazobactam Sod 50 ml @ 12.5 mls/hr ZOSY8 IV 04/26/24 05:00 04/27/24 12:58 DC 04/27/24 12:50 12.5 MLS/HR Potassium Chloride 100 ml @ 100 mls/hr AD PRN IV POTASSIUM PROTOCOL 04/26/24 01:00 05/26/24 00:59 04/29/24 04:54 100 MLS/HR Potassium Chloride (K-Dur/Klor-Con 20meq) 20 meq AD PRN PO POTASSIUM PROTOCOL 04/26/24 01:00 05/26/24 00:59 04/30/24 09:07 20 MEQ Potassium Chloride (K-Dur/Klor-Con 20meq) 20 meq AD PRN PO POTASSIUM PROTOCOL 04/29/24 09:00 04/29/24 08:45 DC Potassium Chloride (KCl 10% Elixir 20meq/15ml) 20 meq AD PRN PO POTASSIUM PROTOCOL 04/26/24 01:00 05/26/24 00:59 04/26/24 06:39 20 MEQ Potassium Chloride (KCl 10% Elixir 20meq/15ml) 20 meq AD PRN PO POTASSIUM PROTOCOL 04/29/24 09:00 04/29/24 08:44 DC Vancomycin HCl 250 ml @ 125 mls/hr Q12H IV 04/26/24 11:30 04/27/24 12:58 DC 04/27/24 12:50 125 MLS/HR Vancomycin HCl 250 ml @ 125 mls/hr Q12H9 IV 04/30/24 09:00 05/01/24 08:45 DC 04/30/24 19:33 125 MLS/HR Vancomycin HCl 250 ml @ 125 mls/hr Q8H IV 05/01/24 09:00 05/11/24 08:59 05/01/24 08:50 125 MLS/HR Vancomycin HCl 250 ml @ 125 mls/hr Q8H6 IV 04/27/24 14:00 04/27/24 12:58 DC Vancomycin HCl 500 ml @ 250 mls/hr ONCE IV 04/29/24 17:30 04/29/24 21:30 DC 04/29/24 20:34 250 MLS/HR Vancomycin HCl (Vancomycin Protocol) 1 each AD IV 04/26/24 07:00 04/27/24 12:58 DC Vancomycin HCl (Vancomycin Protocol) 1 each AD IV 04/29/24 16:00 05/13/24 15:59 Vasopressin 40 units/Sodium Chloride 42 ml @ 0 mls/hr AD PRN IV TITRATE 04/27/24 18:00 04/27/24 17:45 DC DIAGNOSTICS / RADIOLOGY: [ ] ASSESSMENT: Septic Shock - resolved Sepsis Hypotension requiring vasopressor (Levophed) support - resolved Elevated lactic acid - resolved Neutropenia - POA Diabetes mellitus type II - POA Hypertension - POA OSH/ADAL - POA being treated at home with CPAP Morbid obesity BMI 49.8 PLAN: Septic Shock - POA Hypotension requiring vasopressor (Levophed) support - POA Elevated lactic acid - POA Neutropenia - POA - fluid resuscitation - received 4L in total - Blood cultures - E. coli - treat with Meropenem and Vancomycin to be dosed by pharmacy - ID consult - recheck labs in the am - monitor platelets and restart Lovenox Diabetes mellitus type II - POA - check hemoglobin A1c in the am - glucometer checks a.c. and HS - 1800 ADA diet - Humulin R sliding scale one Hypertension - POA - avoid antihypertensive medications at this time due to hypotension Oral ulcers - being treated with acyclovir GI prophy - famotidine 20 mg PO QD DTV prophy - Lovenox 40 mg subQ QD Will continue to follow recommendations per pulmonolgy Will continue to follow recommendations per Infectious Disease ATTESTATION BY PHYSICIAN I have seen and examined the patient. I reviewed the documentation, medical decision making, and treatment plan as noted by the resident provider above. I agree with the findings and plan of care. Patrice Nazario MD, PRIYA N May 01, 2024 09:21
[2024-05-01 09:24] LABS: BASOPHILS # (AUTO) 0.04 K/uL (0.00-0.20); BASOPHILS % (AUTO) 0.4 % (0.0-5.0); EOSINOPHILS # (AUTO) 0.04 K/uL (0.00-0.70); EOSINOPHILS % (AUTO) 0.4 % (0.0-8.0); HEMATOCRIT 35.9 % (36-48); IMMATURE GRANULOCYTE ABSOLUTE 0.23 K/uL (0-1); LYMPHOCYTES # (AUTO) 1.6 K/uL (1.0-4.8); LYMPHOCYTES % (AUTO) 13.8 % (21.0-51.0); MEAN CORPUSCULAR HEMOGLOBIN 29.7 pg (27.0-33.0); MEAN CORPUSCULAR HGB CONC 33.4 g/dL (32.0-36.0); MEAN CORPUSCULAR VOLUME 88.9 fL (79-99); MONOCYTES # (AUTO) 1.2 K/uL (0.1-1.0); MONOCYTES % (AUTO) 10.5 % (3.0-13.0); NEUTROPHILS # (AUTO) 8.2 K/uL (1.8-7.7); NEUTROPHILS % (AUTO) 72.9 % (40.0-77.0); PLATELET COUNT (AUTO) 99 K/uL (130-400); RED BLOOD CELL COUNT(AUTO) 4.04 MIL/uL (4.00-5.50); RED CELL DISTRIBUTION WIDTH 14.9 % (11.0-15.5); WHITE BLOOD COUNT (AUTO) 11.3 K/uL (4.8-10.8)
[2024-05-01 09:27] LABS: CREATININE 0.6 mg/dL (0.5-1.0); POTASSIUM 3.2 mmol/L (3.5-5.1)
[2024-05-01 09:31] LABS: BILIRUBIN,TOTAL 0.9 mg/dL (0.2-1.0); TOTAL PROTEIN, SERUM 6.3 g/dL (6.0-8.3)
--- NOTE | 2024-05-01 14:11 | PN ---
INFECTIOUS DISEASE PROGRESS NOTE Date of Service: May 01, 2024 SUBJECTIVE: Patient was seen and examined at bedside in room 319. Patient is awake, alert and oriented x 3. Patient is sitting up on the bedside chair and she is able to ambulate to the restroom without dyspnea. Patient is currently on oxygen via nasal cannula 2 L/min. Sputum culture came back positive for Jes albicans. Patient continues experiencing fevers, had a 102.6 last night and current temperature is 98.8. Continues on vancomycin and meropenem IV. No reports of nausea or vomiting. We will continue to follow patient's care. PHYSICAL EXAM EYES: Anicteric. Pupils equal and reactive. HENT: No oral thrush seen, moist Oral mucosa. NECK: Supple, no JVD or thyromegaly. LUNGS: Good air entry. No rales, no rhonchi. Diminished breath sounds. Occasional cough. Oxygen via nasal cannula. CARDIOVASCULAR: S1, S2 regular. No murmur heard. ABDOMEN: Soft, non tender, bowel sounds hypoactive., no organomegaly. CENTRAL NERVOUS SYSTEM: Awake, alert, oriented x 3. SKIN: No rashes, no swelling. LYMPHATICS: No peripheral lymphadenopathy. MUSCULOSKELETAL: No joint swelling, erythema or tenderness. EXTREMITIES: No cyanosis or clubbing. Edema to the right foot. Patient stated his chronic sense a right ankle ORIF. BACK: No deformity, no pressure ulcer. GENITOURINARY: No dysuria or hematuria Vital Sign (Last 12 Hours) 05/01/24 05/01/24 05/01/24 05/01/24 04:00 07:20 08:00 12:00 Temp 98.8 98.8 98.1 Pulse 74 80 69 Resp B/P (MAP) 115/60 136/65 137/54 Pulse Ox 90 93 96 O2 Delivery Room Air N/Cannula Low lpm Room Air Room Air O2 Flow Rate 2.0 FiO2 28 LABS: Laboratory: Test 05/01/24 12:07 05/01/24 07:55 04/30/24 04:29 04/29/24 20:44 Range/Units Whole Blood Glucose 115 H 70-110 MG/DL White Blood Count 11.3 H 4.8-10.8 K/uL Red Blood Count 4.04 4.00-5.50 MIL/uL Hemoglobin 12.0 12.0-16.0 g/dL Hematocrit 35.9 L 36-48 % Mean Corpuscular Volume 88.9 79-99 fL Mean Corpuscular Hemoglobin 29.7 27.0-33.0 pg Mean Corpuscular Hemoglobin Concent 33.4 32.0-36.0 g/dL Red Cell Distribution Width 14.9 11.0-15.5 % Platelet Count 99 L 130-400 K/uL Mean Platelet Volume 11.6 H 7.5-10.5 fL Immature Granulocyte % (Auto) 2.0 H 0-1 % Neutrophils (%) (Auto) 72.9 40.0-77.0 % Lymphocytes (%) (Auto) 13.8 L 21.0-51.0 % Monocytes (%) (Auto) 10.5 3.0-13.0 % Eosinophils (%) (Auto) 0.4 0.0-8.0 % Basophils (%) (Auto) 0.4 0.0-5.0 % Neutrophils # (Auto) 8.2 H 1.8-7.7 K/uL Lymphocytes # (Auto) 1.6 1.0-4.8 K/uL Monocytes # (Auto) 1.2 H 0.1-1.0 K/uL Eosinophils # (Auto) 0.04 0.00-0.70 K/uL Basophils # (Auto) 0.04 0.00-0.20 K/uL Absolute Immature Granulocyte (auto 0.23 0-1 K/uL Nucleated Red Blood Cells 0.0 0.0-0.19 % Sodium Level 139 136-145 mmol/L Potassium Level 3.2 L 3.5-5.1 mmol/L Chloride Level 103 101-111 mmol/L Carbon Dioxide Level 30 21-32 mmol/L Blood Urea Nitrogen 7 7-18 mg/dL Creatinine 0.6 0.5-1.0 mg/dL Glomerular Filtration Rate Calc 103 >90 mL/min Random Glucose 115 H 70-105 mg/dL Total Calcium 8.0 L 8.5-10.1 mg/dL Total Bilirubin 0.9 0.2-1.0 mg/dL Aspartate Amino Transf (AST/SGOT) 15 10-37 U/L Alanine Aminotransferase (ALT/SGPT) 14 12-78 U/L Alkaline Phosphatase 75 50-136 U/L Total Protein 6.3 6.0-8.3 g/dL Albumin 2.0 L 3.5-5.0 g/dL Vancomycin Level Trough 5.5 L 10.0-20.0 UG/ML Procalcitonin 4.95 H 0.05-0.5 ng/mL Urine Color LIGHT-YELLOW YELLOW Urine Appearance CLEAR CLEAR Urine pH 7.5 5.0-8.0 Urine Specific [place] 1.014 1.001-1.031 Urine Protein NEGATIVE NEGATIVE mg/dL Urine Glucose (UA) 70 H NEGATIVE mg/dL Urine Ketones 40 H NEGATIVE mg/dL Urine Occult Blood NEGATIVE NEGATIVE Urine Nitrate NEGATIVE NEGATIVE Urine Bilirubin NEGATIVE NEGATIVE mg/dL Urine Urobilinogen 3 H 0.2-1.0 mg/dL Urine Leukocyte Esterase NEGATIVE NEGATIVE Sandor/uL Urine RBC 2-5 H 0-1 /HPF Urine WBC 0-1 0-1 /HPF Urine Squamous Epithelial Cells RARE 0-2 /HPF Urine Bacteria None None Seen /HPF Test 04/29/24 17:55 Range/Units Lactic Acid Level 1.6 0.8-2.5 mmol/L ASSESSMENT: E coli bacteremia. Urinary tract infection with E coli. Sepsis. Pneumonia Will Jes albicans. Leukocytosis resolving. Left flank pain, pyelonephritis ruled out. Diabetes mellitus. PLAN: Continue vancomycin per pharmacy protocol. Continue meropenem. Continue GI prophylaxis. . Continue pain management. Continue antidiabetics. Will monitor electrolytes. This case was reviewed and discussed with my supervising physician and the above assessment and plan was formulated and agreed upon. ATTESTATION BY PHYSICIAN I have seen and examined the patient. I reviewed the documentation, medical decision making, and treatment plan as noted by the mid-level provider above. I agree with the findings and plan of care. DAMARIS OROSCO MD, [facility] May 01, 2024 14:11
--- NOTE | 2024-05-01 15:38 | PN ---
[facility] PROGRESS NOTE Date Patient Seen: May 01, 2024 Time of Visit: 15:32 Supervising Physician: [Dr. Caceres] Consulting Physician: [facility] Outpatient Specialists: JULIO CESAR Inpatient Consults: Dr. Alvarado PROBLEM LIST: Shock state- septic shock, resolved Gram negative bacteremia- E Coli, treated Gram negative acute complicated cystitis- E-Coli Community acquired pneumonia, treated Acute hypoxic respiratory failure, POA Left flank pain, Lactic acidosis, resolved POA DM type 2, with hyperglycemia, POA Morbid obesity BMI 43 OHS/ ADAL- home CPAP PLAN: Repeat blood culture Continue merrem Monitor fever, s/s of infection CBC in AM Continue with IVF Off of levophed Ambulation CPAP at night INTERVAL HISTORY: 04/26 patient is awake alert and oriented x3 lying down in bed not in acute distress. Patient is on 4 L nasal cannula saturation oxygen 100%. We we will wean oxygen as tolerated to keep sats greater 92%. Given BMI of 43 and bicarb was 28 in admission, patient might have OHS/ADAL. We can place a CPAP at night a s tolerated. Otherwise lab this morning with sodium 146 this is up from 140 to potassium is 2.7. Chloride is 112. Lactic acid is down to 2.7 procalcitonin is 1.16. Check MRSA swab so we can discontinue vancomycin if negative. Otherwise continue Zosyn. CT scan of the abdomen is showing Single air bubble in the left kidney, no perinephric fat stranding, UA is with negative nitrites and leukocyte esterase but has WBC of 6-10, non bacteria. Continue to follow cultures. Continue to wean Levophed as tolerated. Keep map greater than 65. Keep in ICU given vasopressor requirement. 04/27 patient is awake alert and oriented x3 up in the chair not in acute distress. She is complaining of headache, she is used to drinking coffee every day, so we will give her Fioricet p.r.n.. She was weaned off of the Levophed drip this morning but he had to be restarted given that her blood pressure dropped again. Otherwise she is growing Gram-negative rods in the blood and in the urine WBC is down to 31 from 35 but given that she is remaining on vasopressors and thrombocytopenic, we will up the antibiotic coverage to meropenem for concern of ESBL, discontinue Zosyn. We can discontinue vancomycin as well. We can wean down abx when sensitivity is available. Keep in ICU if rem ains on vasopressors. 04/28-Patient seen at bedside stable and orientedx3. afebrile, 95% on 3L nasal cannula, BP 104/46, Patient nasal secretions negative for MRSA. Patient blood culture positive for e.coli. She is currently on Meropenem. Remarkable labs: white count trending down from 31.4 to 23.7, platelets up from 69K to 72. chemistries within normal range. Patient was taken off Levophed yesterday but her blood pressure dropped and was placed on Levophed again. She remains on Levophed and will try wean off, placed on midodrin TId. Give IVF LR bolus for now. Obtain 2Decho to evaluate for systolic and valve function given refractory hypotension. We will repeat procalcitonin and lactic acid. will De escalate merem if procal is normalized. Will discontinue pedraza catheter. Transfer out of ICU if remains off pressor. 04/29 patient is awake alert oriented x3 not in acute distress. She has been weaned off the Levophed yesterday blood pressure is 112/52 map 72. Heart rate is 75. Patient feels a little bit warm T-max 99.9. Her WBC is down to 13 from 23K and platelet count is 77. Her procalcitonin is 5.7 this is down from 6 yest erday. Overall improvement in sepsis but given low grade fever, will continue current regimen till tomorrow. Her chemistry is unremarkable except for magnesium which we have replaced with electrolyte per protocol. Her pedraza cath has been removed yesterday. Otherwise she is stable at this time we can discontinue central line in the right IJ. Obtain chest x-ray for hypoxia. ohs. CPAP at night. Downgrade to med-surg. 04/30 patient had low-grade temperature of 99.1 F overnight her white blood count did jump from 6-12. She continues on meropenem. Her repeat blood cultures are growing Gram-negative rods, we will order another set of blood cultures to ensure adequate treatment. She continues hypoxic on 2 L NC. Her blood pressure is maintaining we will off of vasopressors. Right IJ has been discontinued. Has diuresed 1700 mL of urine output overnight. Her echocardiogram shows no evidence of vegetation. 05/01 Pressure 137/54 with a heart rate of 69, afebrile on room air. Patient did have a fever on 03/30 of 102.6 and low-grade temperature overnight of 99.9. This did have 1700 mL of urine output overnight with a net fluid balance of-600 mL. Her CBC is stable with a WBC of , hemoglobin 11, platelets 99. BNP shows hypokalemia, otherwise unremarkable. Her sputum culture is growing Jes. Repeat blood cultures negative. Continues on antibiotics per ID. On behalf of [facility], thank you for this interesting consult. We we will sign off. Please see are free to reach out with any questions or re-consult as needed. REVIEW OF SYSTEMS: 12 point ROS reviewed with patient. Pertinent positives mentioned above. Other abdi negative. PHYSICAL EXAM: GENERAL: alert, weak, awake oriented x 3 HEENT: EOMI, Sclera non icteric, moist mucosa NECK: Supple, no JVD, trachea midline LUNGS: Coarse bilateral lung sounds, tachypneic HEART: Regular rate and rhythm. Normal S1 and S2, without murmurs ABD: Large habitus EXT: No clubbing cyanosis or edema NEURO: Alert and oriented to person, follows commands Vital Signs (last 8hr) Date Time Temp Pulse Resp B/P (MAP) Pulse Ox O2 Delivery O2 Flow Rate FiO2 05/01/24 12:00 98.1 69 18 137/54 96 Room Air 05/01/24 08:00 98.8 80 18 136/65 93 Room Air LABS: Hematology Labs: Test 05/01/24 07:55 Range/Units White Blood Count 11.3 H 4.8-10.8 K/uL Red Blood Count 4.04 4.00-5.50 MIL/uL Hemoglobin 12.0 12.0-16.0 g/dL Hematocrit 35.9 L 36-48 % Mean Corpuscular Volume 88.9 79-99 fL Mean Corpuscular Hemoglobin 29.7 27.0-33.0 pg Mean Corpuscular Hemoglobin Concent 33.4 32.0-36.0 g/dL Red Cell Distribution Width 14.9 11.0-15.5 % Platelet Count 99 L 130-400 K/uL Mean Platelet Volume 11.6 H 7.5-10.5 fL Immature Granulocyte % (Auto) 2.0 H 0-1 % Neutrophils (%) (Auto) 72.9 40.0-77.0 % Lymphocytes (%) (Auto) 13.8 L 21.0-51.0 % Monocytes (%) (Auto) 10.5 3.0-13.0 % Eosinophils (%) (Auto) 0.4 0.0-8.0 % Basophils (%) (Auto) 0.4 0.0-5.0 % Neutrophils # (Auto) 8.2 H 1.8-7.7 K/uL Lymphocytes # (Auto) 1.6 1.0-4.8 K/uL Monocytes # (Auto) 1.2 H 0.1-1.0 K/uL Eosinophils # (Auto) 0.04 0.00-0.70 K/uL Basophils # (Auto) 0.04 0.00-0.20 K/uL Absolute Immature Granulocyte (auto 0.23 0-1 K/uL Nucleated Red Blood Cells 0.0 0.0-0.19 % Chemistry Labs: Test 05/01/24 12:07 05/01/24 07:55 04/30/24 04:29 04/29/24 17:55 Range/Units Whole Blood Glucose 115 H 70-110 MG/DL Sodium Level 139 136-145 mmol/L Potassium Level 3.2 L 3.5-5.1 mmol/L Chloride Level 103 101-111 mmol/L Carbon Dioxide Level 30 21-32 mmol/L Blood Urea Nitrogen 7 7-18 mg/dL Creatinine 0.6 0.5-1.0 mg/dL Glomerular Filtration Rate Calc 103 >90 mL/min Random Glucose 115 H 70-105 mg/dL Total Calcium 8.0 L 8.5-10.1 mg/dL Total Bilirubin 0.9 0.2-1.0 mg/dL Aspartate Amino Transf (AST/SGOT) 15 10-37 U/L Alanine Aminotransferase (ALT/SGPT) 14 12-78 U/L Alkaline Phosphatase 75 50-136 U/L Total Protein 6.3 6.0-8.3 g/dL Albumin 2.0 L 3.5-5.0 g/dL Procalcitonin 4.95 H 0.05-0.5 ng/mL Lactic Acid Level 1.6 0.8-2.5 mmol/L DIAGNOSTICS / RADIOLOGY RESULTS: [ ] PLAN NEURO: Minimize central acting medications as possible. Maintain fall precautions, adequate lighting during the day PULMONARY: Supplemental 02 as needed. Maintain aspiration precautions at all times CARDIOVASCULAR: Follow hemodynamics. Vital signs per facility protocol GI & NUTRITION: Continue with nutritional support. Continue stool softeners and laxatives as needed. KIDNEYS & ELECTROLYTES: Strict monitoring of intake, output and overall fluid balance. Avoid nephrotoxic medications to the extent possible. Medications to be dosed according to renal function. Monitor electrolytes and replace as needed ENDOCRINE: Maintain blood glucose between 100-180 at all times. Hypoglycemia protocol in place INFECTIOUS DISEASE: Trend temperature, WBC and procalcitonin level Follow cultures, deescalate antibiotics as soon as possible. Panculture if new onset fever ONCOLOGY/HEMATOLOGY/COAGULATION: Monitor for s/s of bleeding Monitor hemoglobin, coagulation studies as needed SKIN: Pressure ulcer prevention per facility protocol Specialty mattress ORTHO/REHAB: Continue PT/OT Prophylaxis: Continue GI and DVT prophylaxis Code Status: Full Resuscitation Disposition: TBD Other: Total patient care time exceeds 46 minutes excluding all procedures. BRISA WINTER May 01, 2024 15:38
[2024-05-02] VITALS (7 sets, daily range): BP systolic 125–133; BP diastolic 60–73; PULSE 70–90; RESP 18–20; TEMP 98.4–99.6; O2SAT 88–98
[2024-05-02] MEDS: BUTALB/ACETAMINOPHEN/CAFFEINE 1 EACH TABLET PO PRN (04:15)
[2024-05-02 10:33] LABS: BASOPHILS # (AUTO) 0.03 K/uL (0.00-0.20); BASOPHILS % (AUTO) 0.2 % (0.0-5.0); EOSINOPHILS # (AUTO) 0.08 K/uL (0.00-0.70); EOSINOPHILS % (AUTO) 0.6 % (0.0-8.0); HEMATOCRIT 35.6 % (36-48); IMMATURE GRANULOCYTE ABSOLUTE 0.17 K/uL (0-1); LYMPHOCYTES # (AUTO) 1.3 K/uL (1.0-4.8); LYMPHOCYTES % (AUTO) 9.9 % (21.0-51.0); MEAN CORPUSCULAR HEMOGLOBIN 30.1 pg (27.0-33.0); MEAN CORPUSCULAR HGB CONC 33.4 g/dL (32.0-36.0); MEAN CORPUSCULAR VOLUME 89.9 fL (79-99); MONOCYTES # (AUTO) 1.1 K/uL (0.1-1.0); MONOCYTES % (AUTO) 8.4 % (3.0-13.0); NEUTROPHILS # (AUTO) 10.4 K/uL (1.8-7.7); NEUTROPHILS % (AUTO) 79.6 % (40.0-77.0); PLATELET COUNT (AUTO) 118 K/uL (130-400); RED BLOOD CELL COUNT(AUTO) 3.96 MIL/uL (4.00-5.50); RED CELL DISTRIBUTION WIDTH 15.3 % (11.0-15.5); WHITE BLOOD COUNT (AUTO) 13.1 K/uL (4.8-10.8)
[2024-05-02 10:42] LABS: CREATININE 0.7 mg/dL (0.5-1.0); POTASSIUM 3.1 mmol/L (3.5-5.1)
[2024-05-02 10:46] LABS: TOTAL PROTEIN, SERUM 6.3 g/dL (6.0-8.3)
--- NOTE | 2024-05-02 12:18 | PN ---
INFECTIOUS DISEASE PROGRESS NOTE Date of Service: May 02, 2024 SUBJECTIVE: Patient was seen and examined at bedside in room 319. Patient is awake, alert and oriented x 3. Patient is currently on oxygen via nasal cannula 2.5 L/min. WBC still slightly elevated at 13.1 and patient experienced a low grade fever last night of 99.9. No growth reported yet on the repeat blood cultures for 48 hours. Continues on vancomycin and meropenem. No nausea or vomiting reported. We will continue to follow patient's care. PHYSICAL EXAM EYES: Anicteric. Pupils equal and reactive. HENT: No oral thrush seen, moist Oral mucosa. NECK: Supple, no JVD or thyromegaly. LUNGS: Good air entry. No rales, no rhonchi. Diminished breath sounds. Occasional cough. Oxygen via nasal cannula. CARDIOVASCULAR: S1, S2 regular. No murmur heard. ABDOMEN: Soft, non tender, bowel sounds hypoactive., no organomegaly. CENTRAL NERVOUS SYSTEM: Awake, alert, oriented x 3. SKIN: No rashes, no swelling. LYMPHATICS: No peripheral lymphadenopathy. MUSCULOSKELETAL: No joint swelling, erythema or tenderness. EXTREMITIES: No cyanosis or clubbing. Edema to the right foot. Patient stated his chronic sense a right ankle ORIF. BACK: No deformity, no pressure ulcer. GENITOURINARY: No dysuria or hematuria Vital Sign (Last 12 Hours) 05/02/24 05/02/24 05/02/24 03:53 06:23 08:00 Temp 98.4 98.4 Pulse 81 70 74 Resp 20 18 18 B/P (MAP) 129/62 125/70 Pulse Ox 94 98 O2 Delivery Nasal Cannula N/Cannula Low lpm Nasal Cannula O2 Flow Rate 2.5 2.0 2.0 FiO2 28 Intake & Output (last 24hrs) 05/01/24 05/01/24 05/02/24 15:00 23:00 07:00 Intake Total 400 ml Output Total 900 ml 700 ml Balance -900 ml -300 ml LABS: Laboratory: Test 05/02/24 08:03 05/02/24 05:17 Range/Units White Blood Count 13.1 H 4.8-10.8 K/uL Red Blood Count 3.96 L 4.00-5.50 MIL/uL Hemoglobin 11.9 L 12.0-16.0 g/dL Hematocrit 35.6 L 36-48 % Mean Corpuscular Volume 89.9 79-99 fL Mean Corpuscular Hemoglobin 30.1 27.0-33.0 pg Mean Corpuscular Hemoglobin Concent 33.4 32.0-36.0 g/dL Red Cell Distribution Width 15.3 11.0-15.5 % Platelet Count 118 L 130-400 K/uL Mean Platelet Volume 11.2 H 7.5-10.5 fL Immature Granulocyte % (Auto) 1.3 H 0-1 % Neutrophils (%) (Auto) 79.6 H 40.0-77.0 % Lymphocytes (%) (Auto) 9.9 L 21.0-51.0 % Monocytes (%) (Auto) 8.4 3.0-13.0 % Eosinophils (%) (Auto) 0.6 0.0-8.0 % Basophils (%) (Auto) 0.2 0.0-5.0 % Neutrophils # (Auto) 10.4 H 1.8-7.7 K/uL Lymphocytes # (Auto) 1.3 1.0-4.8 K/uL Monocytes # (Auto) 1.1 H 0.1-1.0 K/uL Eosinophils # (Auto) 0.08 0.00-0.70 K/uL Basophils # (Auto) 0.03 0.00-0.20 K/uL Absolute Immature Granulocyte (auto 0.17 0-1 K/uL Nucleated Red Blood Cells 0.0 0.0-0.19 % Sodium Level 140 136-145 mmol/L Potassium Level 3.1 L 3.5-5.1 mmol/L Chloride Level 102 101-111 mmol/L Carbon Dioxide Level 31 21-32 mmol/L Blood Urea Nitrogen 7 7-18 mg/dL Creatinine 0.7 0.5-1.0 mg/dL Glomerular Filtration Rate Calc 100 >90 mL/min Random Glucose 108 H 70-105 mg/dL Total Calcium 8.1 L 8.5-10.1 mg/dL Total Bilirubin 1.0 0.2-1.0 mg/dL Aspartate Amino Transf (AST/SGOT) 16 10-37 U/L Alanine Aminotransferase (ALT/SGPT) 15 12-78 U/L Alkaline Phosphatase 75 50-136 U/L Total Protein 6.3 6.0-8.3 g/dL Albumin 2.0 L 3.5-5.0 g/dL Vancomycin Level Trough 14.1 # 10.0-20.0 UG/ML Whole Blood Glucose 97 70-110 MG/DL ASSESSMENT: E coli bacteremia. Urinary tract infection with E coli. Sepsis. Pneumonia Will Jes albicans. Leukocytosis resolving. Left flank pain, pyelonephritis ruled out. Diabetes mellitus. PLAN: Continue vancomycin per pharmacy protocol. Continue meropenem. We will follow up on the repeat blood cultures. Continue GI prophylaxis. . Continue pain management. Continue antidiabetics. Will monitor electrolytes. This case was reviewed and discussed with my supervising physician and the above assessment and plan was formulated and agreed upon. ATTESTATION BY PHYSICIAN I have seen and examined the patient. I reviewed the documentation, medical decision making, and treatment plan as noted by the mid-level provider above. I agree with the findings and plan of care. DAMARIS OROSCO MD, [facility] May 02, 2024 12:18
--- NOTE | 2024-05-02 13:32 | PN ---
[facility] PROGRESS NOTE Date of Service: May 02, 2024 Time of Service: 9:45 SUBJECTIVE: 04/26 - patient is 58 year old female seen at bedside afebrile, HR 80, BP115/60, tachypneic on 4L nasal cannula. Patient complains of chills and feeling unwell. She continues be on Levophed and triple antibiotics - Vancomycin, Zosyn, Azithromycin. Remarkable labs: white count increased significantly from 3.5 to 35.2, platelets decreased significantly from 161K to 63K. Sodium 146, potassium 2.7, BUN and creatinine within normal range. Lactic acid trending down from 3.72 to 2.7, ABG pH 7.458, CO2 27, O2 59.9, HCO3 18.8, magnesium 1.3, procalcitonin elevated 1.16. BNP and troponins within normal range. CT abdomen/pelvis showed single air bubble in normal appearing left kidney, co nsistent with air refluxing into the kidney from the urinary bladder. Kidneys appear normal otherwise. A small amount of air is present in a nondistended urinary bladder there is a Segovia catheter in position, the air could represent emphysematous cystitis or be secondary to instrumentation. Gallbladder is absent. Potassium protocol initiated. If platelets continue to drop will consider ordering HIT panel and possibly holding Lovenox. Patient is being followed by critical care. We will continue to medically manage and follow recommendations. 04/27 - patient seen at bedside, afebrile heart rate 82, tachypneic on 3L nasal cannula, BP 86/39. Patient appears more comfortable but states she was unable to sleep due to CPAP machine and anxiety. Remarkable labs: white count trending down from 35.2 to 31.4, platelets up from 63K to 69K. Sodium 146, calcium 7.7, magnesium 1.9, procalcitonin 20.92, BUN and creatinine within normal range. Patient remains on vancomycin, zosyn, and azithromycin. Patient on Levophed and will continue to try to wean off. Patient had a central line placed on the right yesterday and tolerated the procedure well. Lovenox held due to low platelets. Will continue to monitor and medically manage and follow recommendations per critical care team. 04/28 - Patient seen at bedside accompanied by her daughter. She is comfortable, afebrile, on 3L nasal cannula. Patient nasal secretions negative for MRSA. Patient blood culture positive for e.coli. She is currently on Meropenem, no longer on vancomycin, Zosyn, and azithromycin. Remarkable labs: white count trending down from 31.4 to 23.7, platelets up from 69K to 72. chemistries within normal range. Patient was taken off Levophed yesterday but her blood pressure dropped and was placed on Levophed again. She remains on Levophed and will wean off. We will continue to monitor and medically manage and follow recommendations per critical care team. 04/30 - Patient seen at bedside. tmax 99.1, HR 72 on 2L nasal cannula. Patient had fever and chills last night. Infectious Disease consulted. Patient placed on Vancomycin to be dosed by pharmacy. Patient complains of blisters on tongue and chills this AM. Repeat blood cultures pending. She is on Vancomycin and Meropenem. She is no longer on Levophed and can discontinue telemetry per protocol. Chest xray shows mild pulmonary vascular congestion. Patient denies nausea, vomiting, diarrhea. Remarkable labs: white count trending from 13.3 to 6.4 to 12.4, today. platelets up from 77 to 64 to 86K today. We will continue to monitor and medically manage. We will follow recommendations per pulmonology and infectious disease. 05/01 - Patient seen at bedside. Temp 98.8, HR 80, on room air. Patient states she is feeling better than previous day. Her white count continues to trend down from 12.4 to 11.3. Chemistries are WNL. Patient remains on Vancomycin being dosed by pharmacy - trough is 5.5, Meropenem, and Acyclovir. Respiratory sputum culture results show Jes Albicans and gram positive cocci. Second blood cultures results pending. We will continue to monitor and medically manage and follow recommendations per Infectious Disease and Pulmonology. 05/02 - Patient seen at bedside. Per nurse patient had fever and chills overnight. Tmax of 101. Breathing on 2L nasal cannula. Patient remains on Vancomycin, Meropenem, and Acyclovir. Pulmonology has signed off. We will continue to follow recommendations per infectious disease. Remarkable labs: white count up from 11.3 to 13.1, platelets uptrending from 99K to 118K. Potassium 3.1, will initiate potassium protocol. remaining chemistries unremarkable. REVIEW OF SYSTEMS CONSTITUTIONAL: Complains of fevers, chills, denies night sweats. No unintentional weight loss reported. NEUROLOGICAL: Denies headache, amaurosis fugax, motor weakness, sensory deficit, vertigo/spinning sensation, gait abnormalities, or tremors. ENT: No hearing loss, otalgia, otorrhea, rhinitis, rhinorrhea, hoarseness, or sore throat. CARDIOVASCULAR: Denies any exertional angina, dyspnea on exertion, orthopnea, paroxysmal nocturnal dyspnea, palpitations, life-threatening arrhythmias, claudication. PULMONARY: Denies any shortness of breath, cough, phlegm/sputum, hemoptysis, pleuritic chest pain. SLEEP: Denies morning headaches, daytime somnolence or napping. Denies difficulty falling asleep, staying asleep, waking from sleep. Denies knowledge of snoring. GASTROINTESTINAL: Denies any type of dysphagia to either liquids or solids. Denies nausea, vomiting, pyrosis, early satiety, abdominal pain, diarrhea, constipation, or changes in stool consistency or caliber. Denies coffee-ground emesis, hematemesis, hematochezia, or melanotic stools. GENITOURINARY: Denies frequency, urgency, nocturia, hematuria or incontinence (Storage/Irritative symptoms.) Low urinary stream, straining to void, urinary intermittency or hesitancy, splitting of the voiding stream, terminal dribbling. ENDOCRINOLOGIC: Denies polyuria, polydipsia, polyphagia or heat/cold intolerances. HEMATOLOGIC: Denies thrombophilia/previous clots, or coagulopathy/bleeding disorders. ONCOLOGIC: Denies personal history of malignancy. DERMATOLOGIC: Denies rashes or pruritus. Complains of blisters on tongue. PSYCHIATRIC: Denies any suicidal or homicidal ideation. Denies hallucinations. PHYSICAL EXAM GENERAL APPEARANCE: The patient is awake, alert, and oriented, in no acute cardiopulmonary distress. NEUROLOGICAL: Cranial nerves II-XII grossly intact. Motor is 5/5 in bilateral upper and lower extremities proximal to distal. No sensory deficits. HEENT: Face is symmetric. Pupils are equal and reactive. Extraocular movements are intact. NECK: Supple. No JVD. No thyromegaly. No submental, submandibular, pre- /postauricular, occipital or supraclavicular lymphadenopathy. CHEST: Normal chest expansion. No Telemetry. LUNGS: Absence of any rales, positive for rhonchi Negative for any wheezing. CARDIOVASCULAR: Regular. S1 and S2 normal. No appreciable rubs, murmurs or gallops. ABDOMEN: Soft, nontender, and nondistended. There is no rebound, voluntary guarding, or rigidity. : Deferred. No Segovia. EXTREMITIES: Non-edematous and not cyanotic. No clubbing. Good capillary refill. SKIN: No skin breakdown. Vital Signs (last 8hr) Date Time Temp Pulse Resp B/P (MAP) Pulse Ox O2 Delivery O2 Flow Rate FiO2 05/02/24 08:00 98.4 74 18 125/70 98 Nasal Cannula 2.0 05/02/24 06:23 70 18 N/Cannula Low lpm 2.0 28 LABS: Laboratory: Test 05/02/24 11:26 05/02/24 08:03 Range/Units Whole Blood Glucose 134 H 70-110 MG/DL White Blood Count 13.1 H 4.8-10.8 K/uL Red Blood Count 3.96 L 4.00-5.50 MIL/uL Hemoglobin 11.9 L 12.0-16.0 g/dL Hematocrit 35.6 L 36-48 % Mean Corpuscular Volume 89.9 79-99 fL Mean Corpuscular Hemoglobin 30.1 27.0-33.0 pg Mean Corpuscular Hemoglobin Concent 33.4 32.0-36.0 g/dL Red Cell Distribution Width 15.3 11.0-15.5 % Platelet Count 118 L 130-400 K/uL Mean Platelet Volume 11.2 H 7.5-10.5 fL Immature Granulocyte % (Auto) 1.3 H 0-1 % Neutrophils (%) (Auto) 79.6 H 40.0-77.0 % Lymphocytes (%) (Auto) 9.9 L 21.0-51.0 % Monocytes (%) (Auto) 8.4 3.0-13.0 % Eosinophils (%) (Auto) 0.6 0.0-8.0 % Basophils (%) (Auto) 0.2 0.0-5.0 % Neutrophils # (Auto) 10.4 H 1.8-7.7 K/uL Lymphocytes # (Auto) 1.3 1.0-4.8 K/uL Monocytes # (Auto) 1.1 H 0.1-1.0 K/uL Eosinophils # (Auto) 0.08 0.00-0.70 K/uL Basophils # (Auto) 0.03 0.00-0.20 K/uL Absolute Immature Granulocyte (auto 0.17 0-1 K/uL Nucleated Red Blood Cells 0.0 0.0-0.19 % Sodium Level 140 136-145 mmol/L Potassium Level 3.1 L 3.5-5.1 mmol/L Chloride Level 102 101-111 mmol/L Carbon Dioxide Level 31 21-32 mmol/L Blood Urea Nitrogen 7 7-18 mg/dL Creatinine 0.7 0.5-1.0 mg/dL Glomerular Filtration Rate Calc 100 >90 mL/min Random Glucose 108 H 70-105 mg/dL Total Calcium 8.1 L 8.5-10.1 mg/dL Total Bilirubin 1.0 0.2-1.0 mg/dL Aspartate Amino Transf (AST/SGOT) 16 10-37 U/L Alanine Aminotransferase (ALT/SGPT) 15 12-78 U/L Alkaline Phosphatase 75 50-136 U/L Total Protein 6.3 6.0-8.3 g/dL Albumin 2.0 L 3.5-5.0 g/dL Vancomycin Level Trough 14.1 # 10.0-20.0 UG/ML Current Medications Medications (Trade) Dose Ordered Sig/Karthik Route PRN Reason Start Time Stop Time Status Last Admin Dose Admin Acetaminophen (TYLenol 325MG TAB) 650 mg Q4H PRN PO MILD PAIN (1-3) 04/26/24 01:00 05/26/24 00:59 05/02/24 00:44 650 MG Acetaminophen (TYLenol 325MG TAB) 650 mg Q6H PRN PO TEMPERATURE GREATER THAN 101.5 04/26/24 01:00 05/26/24 00:59 05/01/24 17:07 650 MG Acetaminophen/ Butalbital/ Caffeine (Vqycoxsm-Tkakzpmcmhbmh-Oywz Tb) 1 each BID PRN PO TENSION HEADACHE 04/27/24 13:30 05/27/24 13:29 05/02/24 04:15 1 EACH Acyclovir (Zovirax 200mg Cap) 400 mg TID PO 04/30/24 14:00 05/30/24 13:59 05/02/24 09:09 400 MG Azithromycin 250 ml @ 250 mls/hr ONCE IVPB 04/26/24 00:00 04/28/24 06:39 DC 04/28/24 00:24 250 MLS/HR Enoxaparin Sodium (Lovenox) 40 mg DAILY SQ 04/26/24 09:00 05/26/24 08:59 04/29/24 08:35 40 MG Famotidine (Pepcid 20mg Tab) 20 mg DAILY PO 04/26/24 09:00 05/26/24 08:59 05/02/24 09:09 20 MG Insulin Human Regular (humuLIN R 100 UNIT/ML 3ML) INSULIN SLIDING SCAL... ACHS SQ 04/26/24 07:30 05/26/24 07:29 04/28/24 21:11 4 UNIT Lactated Ringer's 1,000 ml @ 100 mls/hr Q10H IV 04/26/24 01:00 05/26/24 00:59 05/02/24 09:10 100 MLS/HR Lactated Ringer's (Lactated Ringers 1000ml) 1,000 ml ONCE IV 04/29/24 15:00 04/29/24 21:00 DC 04/29/24 15:48 1,000 ML Lidocaine HCl (Lidocaine HCl 2% Viscous) 10 ml TID PRN PO MOUTH SORES 04/30/24 12:00 05/30/24 11:59 04/30/24 13:09 10 ML Magnesium Sulfate 50 ml @ 0 mls/hr PROTOCOL PRN IV hypomagnesemia 04/26/24 01:00 05/26/24 00:59 04/29/24 04:53 25 MLS/HR Meropenem 1 gm/ Sodium Chloride 100 ml @ 33.333 mls/ hr Q8H IVPB 04/27/24 13:00 05/07/24 12:59 05/02/24 04:40 33.333 MLS/HR Midodrine (PROAMatine 5 MG TABLET) 10 mg TID PO 04/28/24 11:00 05/28/24 10:59 05/01/24 20:02 10 MG Morphine Sulfate (morPHINE 2MG SYG) 2 mg Q4H PRN IV SEVERE PAIN (7-10) 04/26/24 01:30 05/01/24 04:29 DC Norepinephrine 250 ml @ 0 mls/hr PROTOCOL IV 04/26/24 00:00 04/27/24 01:22 DC 04/26/24 21:11 58 MLS/HR Norepinephrine Bitartrate 32 mg/ Sodium Chloride 250 ml @ 0 mls/hr Q0M PRN IV ADMINISTER FOR SBP/DBP> 04/27/24 01:30 04/29/24 11:56 DC 04/27/24 02:00 27 MLS/HR Ondansetron HCl (zoFRAN 4MG INJ) 4 mg Q6H PRN IV NAUSEA/VOMITING 04/26/24 01:00 05/26/24 00:59 Pharmacy Profile Note (Pharmacy Communication) 1 each ONCE MISC 04/27/24 13:00 04/27/24 13:07 DC Piperacillin Sod/ Tazobactam Sod 50 ml @ 12.5 mls/hr ZOSY8 IV 04/26/24 05:00 04/27/24 12:58 DC 04/27/24 12:50 12.5 MLS/HR Potassium Chloride 100 ml @ 100 mls/hr AD PRN IV POTASSIUM PROTOCOL 04/26/24 01:00 05/26/24 00:59 04/29/24 04:54 100 MLS/HR Potassium Chloride (K-Dur/Klor-Con 20meq) 20 meq AD PRN PO POTASSIUM PROTOCOL 04/26/24 01:00 05/26/24 00:59 05/02/24 09:13 20 MEQ Potassium Chloride (K-Dur/Klor-Con 20meq) 20 meq AD PRN PO POTASSIUM PROTOCOL 04/29/24 09:00 04/29/24 08:45 DC Potassium Chloride (KCl 10% Elixir 20meq/15ml) 20 meq AD PRN PO POTASSIUM PROTOCOL 04/26/24 01:00 05/26/24 00:59 04/26/24 06:39 20 MEQ Potassium Chloride (KCl 10% Elixir 20meq/15ml) 20 meq AD PRN PO POTASSIUM PROTOCOL 04/29/24 09:00 04/29/24 08:44 DC Vancomycin HCl 250 ml @ 125 mls/hr Q12H IV 04/26/24 11:30 04/27/24 12:58 DC 04/27/24 12:50 125 MLS/HR Vancomycin HCl 250 ml @ 125 mls/hr Q12H9 IV 04/30/24 09:00 05/01/24 08:45 DC 04/30/24 19:33 125 MLS/HR Vancomycin HCl 250 ml @ 125 mls/hr Q8H IV 05/01/24 09:00 05/11/24 08:59 05/02/24 09:09 125 MLS/HR Vancomycin HCl 250 ml @ 125 mls/hr Q8H6 IV 04/27/24 14:00 04/27/24 12:58 DC Vancomycin HCl 500 ml @ 250 mls/hr ONCE IV 04/29/24 17:30 04/29/24 21:30 DC 04/29/24 20:34 250 MLS/HR Vancomycin HCl (Vancomycin Protocol) 1 each AD IV 04/26/24 07:00 04/27/24 12:58 DC Vancomycin HCl (Vancomycin Protocol) 1 each AD IV 04/29/24 16:00 05/13/24 15:59 Vasopressin 40 units/Sodium Chloride 42 ml @ 0 mls/hr AD PRN IV TITRATE 04/27/24 18:00 04/27/24 17:45 DC DIAGNOSTICS / RADIOLOGY: [ ] ASSESSMENT: Septic Shock - resolved Hypotension requiring vasopressor (Levophed) support - resolved Elevated lactic acid - resolved Neutropenia - POA Diabetes mellitus type II - POA Hypertension - POA OSH/ADAL - POA being treated at home with CPAP Morbid obesity BMI 49.8 PLAN: Septic Shock - POA Hypotension requiring vasopressor (Levophed) support - POA Elevated lactic acid - POA Neutropenia - POA - fluid resuscitation - received 4L in total - Blood cultures - E. coli - treat with Meropenem and Vancomycin to be dosed by pharmacy - ID consult - recheck labs in the am - monitor platelets and restart Lovenox Diabetes mellitus type II - POA - check hemoglobin A1c in the am - glucometer checks a.c. and HS - regular diet - Humulin R sliding scale one Hypertension - POA - avoid antihypertensive medications at this time due to hypotension Oral ulcers - being treated with acyclovir GI prophy - famotidine 20 mg PO QD DTV prophy - Lovenox 40 mg subQ QD Will continue to follow recommendations per pulmonolgy Will continue to follow recommendations per Infectious Disease ATTESTATION BY PHYSICIAN I have seen and examined the patient. I reviewed the documentation, medical decision making, and treatment plan as noted by the resident provider above. I agree with the findings and plan of care. Partice Nazario MD, PRIYA N May 02, 2024 13:32
[2024-05-03] VITALS (10 sets, daily range): BP systolic 119–167; BP diastolic 56–74; PULSE 74–90; RESP 18–19; TEMP 98.3–99.5; O2SAT 91–99
[2024-05-03 09:38] LABS: BASOPHILS # (AUTO) 0.05 K/uL (0.00-0.20); BASOPHILS % (AUTO) 0.3 % (0.0-5.0); EOSINOPHILS # (AUTO) 0.07 K/uL (0.00-0.70); EOSINOPHILS % (AUTO) 0.5 % (0.0-8.0); HEMATOCRIT 36.6 % (36-48); IMMATURE GRANULOCYTE ABSOLUTE 0.16 K/uL (0-1); LYMPHOCYTES # (AUTO) 1.6 K/uL (1.0-4.8); LYMPHOCYTES % (AUTO) 10.4 % (21.0-51.0); MEAN CORPUSCULAR HEMOGLOBIN 30.1 pg (27.0-33.0); MEAN CORPUSCULAR HGB CONC 33.6 g/dL (32.0-36.0); MEAN CORPUSCULAR VOLUME 89.5 fL (79-99); MONOCYTES # (AUTO) 1.1 K/uL (0.1-1.0); MONOCYTES % (AUTO) 7.4 % (3.0-13.0); NEUTROPHILS # (AUTO) 12.3 K/uL (1.8-7.7); NEUTROPHILS % (AUTO) 80.4 % (40.0-77.0); PLATELET COUNT (AUTO) 179 K/uL (130-400); RED BLOOD CELL COUNT(AUTO) 4.09 MIL/uL (4.00-5.50); RED CELL DISTRIBUTION WIDTH 15.2 % (11.0-15.5); WHITE BLOOD COUNT (AUTO) 15.3 K/uL (4.8-10.8)
[2024-05-03 09:54] LABS: ALBUMIN 2.2 g/dL (3.5-5.0); CREATININE 0.5 mg/dL (0.5-1.0); POTASSIUM 3.1 mmol/L (3.5-5.1)
[2024-05-03 09:58] LABS: BILIRUBIN,TOTAL 0.8 mg/dL (0.2-1.0); TOTAL PROTEIN, SERUM 6.5 g/dL (6.0-8.3)
--- NOTE | 2024-05-03 10:17 | PN ---
[facility] PROGRESS NOTE Date of Service: May 03, 2024 Time of Service: 10:02 SUBJECTIVE: 04/26 - patient is 58 year old female seen at bedside afebrile, HR 80, BP115/60, tachypneic on 4L nasal cannula. Patient complains of chills and feeling unwell. She continues be on Levophed and triple antibiotics - Vancomycin, Zosyn, Azithromycin. Remarkable labs: white count increased significantly from 3.5 to 35.2, platelets decreased significantly from 161K to 63K. Sodium 146, potassium 2.7, BUN and creatinine within normal range. Lactic acid trending down from 3.72 to 2.7, ABG pH 7.458, CO2 27, O2 59.9, HCO3 18.8, magnesium 1.3, procalcitonin elevated 1.16. BNP and troponins within normal range. CT abdomen/pelvis showed single air bubble in normal appearing left kidney, c onsistent with air refluxing into the kidney from the urinary bladder. Kidneys appear normal otherwise. A small amount of air is present in a nondistended urinary bladder there is a Segovia catheter in position, the air could represent emphysematous cystitis or be secondary to instrumentation. Gallbladder is absent. Potassium protocol initiated. If platelets continue to drop will consider ordering HIT panel and possibly holding Lovenox. Patient is being followed by critical care. We will continue to medically manage and follow recommendations. 04/27 - patient seen at bedside, afebrile heart rate 82, tachypneic on 3L nasal cannula, BP 86/39. Patient appears more comfortable but states she was unable to sleep due to CPAP machine and anxiety. Remarkable labs: white count trending down from 35.2 to 31.4, platelets up from 63K to 69K. Sodium 146, calcium 7.7, magnesium 1.9, procalcitonin 20.92, BUN and creatinine within normal range. Patient remains on vancomycin, zosyn, and azithromycin. Patient on Levophed and will continue to try to wean off. Patient had a central line placed on the right yesterday and tolerated the procedure well. Lovenox held due to low platelets. Will continue to monitor and medically manage and follow recommendations per critical care team. 04/28 - Patient seen at bedside accompanied by her daughter. She is comfortable, afebrile, on 3L nasal cannula. Patient nasal secretions negative for MRSA. Patient blood culture positive for e.coli. She is currently on Meropenem, no longer on vancomycin, Zosyn, and azithromycin. Remarkable labs: white count trending down from 31.4 to 23.7, platelets up from 69K to 72. chemistries within normal range. Patient was taken off Levophed yesterday but her blood pressure dropped and was placed on Levophed again. She remains on Levophed and will wean off. We will continue to monitor and medically manage and follow recommendations per critical care team. 04/30 - Patient seen at bedside. tmax 99.1, HR 72 on 2L nasal cannula. Patient had fever and chills last night. Infectious Disease consulted. Patient placed on Vancomycin to be dosed by pharmacy. Patient complains of blisters on tongue and chills this AM. Repeat blood cultures pending. She is on Vancomycin and Meropenem. She is no longer on Levophed and can discontinue telemetry per protocol. Chest xray shows mild pulmonary vascular congestion. Patient denies nausea, vomiting, diarrhea. Remarkable labs: white count trending from 13.3 to 6.4 to 12.4, today. platelets up from 77 to 64 to 86K today. We will continue to monitor and medically manage. We will follow recommendations per pulmonology and infectious disease. 05/01 - Patient seen at bedside. Temp 98.8, HR 80, on room air. Patient states she is feeling better than previous day. Her white count continues to trend down from 12.4 to 11.3. Chemistries are WNL. Patient remains on Vancomycin being dosed by pharmacy - trough is 5.5, Meropenem, and Acyclovir. Respiratory sputum culture results show Jes Albicans and gram positive cocci. Second blood cultures results pending. We will continue to monitor and medically manage and follow recommendations per Infectious Disease and Pulmonology. 05/02 - Patient seen at bedside. Per nurse patient had fever and chills overnight. Tmax of 101. Breathing on 2L nasal cannula. Patient remains on Vancomycin, Meropenem, and Acyclovir. Pulmonology has signed off. We will continue to follow recommendations per infectious disease. Remarkable labs: white count up from 11.3 to 13.1, platelets uptrending from 99K to 118K. Potassium 3.1, will initiate potassium protocol. remaining chemistries unremarkable. 05/03 - Patient seen at bedside accompanied by daughter. Patient had a low grade fever last night but denies chills. She currently complains of a headache and was given Tylenol. Patient has herpetic lesions on left lower lip. Patient continues on Vancomycin and Merrem. Will add Diflucan for Jes coverage. Will request physical therapy evaluation for patient to become more mobile. Remarkable labs: white count uptrending from 13 to 15, platelets 118K. Potassium 3.1, BUN 5, creatinine 0.5, albumin 2.2. Will order labs for the AM. Will continue to follow recommendations from infectious disease. REVIEW OF SYSTEMS CONSTITUTIONAL: Complains of fevers, chills, denies night sweats. No unintentional weight loss reported. NEUROLOGICAL: Denies headache, amaurosis fugax, motor weakness, sensory deficit, vertigo/spinning sensation, gait abnormalities, or tremors. ENT: No hearing loss, otalgia, otorrhea, rhinitis, rhinorrhea, hoarseness, or sore throat. CARDIOVASCULAR: Denies any exertional angina, dyspnea on exertion, orthopnea, paroxysmal nocturnal dyspnea, palpitations, life-threatening arrhythmias, claudication. PULMONARY: Denies any shortness of breath, cough, phlegm/sputum, hemoptysis, pleuritic chest pain. SLEEP: Denies morning headaches, daytime somnolence or napping. Denies difficulty falling asleep, staying asleep, waking from sleep. Denies knowledge of snoring. GASTROINTESTINAL: Denies any type of dysphagia to either liquids or solids. Denies nausea, vomiting, pyrosis, early satiety, abdominal pain, diarrhea, constipation, or changes in stool consistency or caliber. Denies coffee-ground emesis, hematemesis, hematochezia, or melanotic stools. GENITOURINARY: Denies frequency, urgency, nocturia, hematuria or incontinence (Storage/Irritative symptoms.) Low urinary stream, straining to void, urinary intermittency or hesitancy, splitting of the voiding stream, terminal dribbling. ENDOCRINOLOGIC: Denies polyuria, polydipsia, polyphagia or heat/cold intolerances. HEMATOLOGIC: Denies thrombophilia/previous clots, or coagulopathy/bleeding disorders. ONCOLOGIC: Denies personal history of malignancy. DERMATOLOGIC: Denies rashes or pruritus. Complains of blisters on tongue and PSYCHIATRIC: Denies any suicidal or homicidal ideation. Denies hallucinations. PHYSICAL EXAM GENERAL APPEARANCE: The patient is awake, alert, and oriented, in no acute cardiopulmonary distress. NEUROLOGICAL: Cranial nerves II-XII grossly intact. Motor is 5/5 in bilateral upper and lower extremities proximal to distal. No sensory deficits. HEENT: Face is symmetric. Pupils are equal and reactive. Extraocular movements are intact. NECK: Supple. No JVD. No thyromegaly. No submental, submandibular, pre- /postauricular, occipital or supraclavicular lymphadenopathy. CHEST: Normal chest expansion. No Telemetry. LUNGS: Absence of any rales, positive for rhonchi Negative for any wheezing. CARDIOVASCULAR: Regular. S1 and S2 normal. No appreciable rubs, murmurs or gallops. ABDOMEN: Soft, nontender, and nondistended. There is no rebound, voluntary guarding, or rigidity. : Deferred. No Segovia. EXTREMITIES: Non-edematous and not cyanotic. No clubbing. Good capillary r efill. SKIN: No skin breakdown. Vital Signs (last 8hr) Date Time Temp Pulse Resp B/P (MAP) Pulse Ox O2 Delivery O2 Flow Rate FiO2 05/03/24 08:00 98.2 75 19 119/58 93 Room Air 05/03/24 06:57 18 N/A Room Air 2.0 28 05/03/24 04:00 99.5 82 18 124/62 95 Room Air LABS: Laboratory: Test 05/03/24 09:29 05/03/24 05:41 05/02/24 08:03 Range/Units White Blood Count 15.3 H 4.8-10.8 K/uL Red Blood Count 4.09 4.00-5.50 MIL/uL Hemoglobin 12.3 12.0-16.0 g/dL Hematocrit 36.6 36-48 % Mean Corpuscular Volume 89.5 79-99 fL Mean Corpuscular Hemoglobin 30.1 27.0-33.0 pg Mean Corpuscular Hemoglobin Concent 33.6 32.0-36.0 g/dL Red Cell Distribution Width 15.2 11.0-15.5 % Platelet Count 179 # 130-400 K/uL Mean Platelet Volume 11.0 H 7.5-10.5 fL Immature Granulocyte % (Auto) 1.0 0-1 % Neutrophils (%) (Auto) 80.4 H 40.0-77.0 % Lymphocytes (%) (Auto) 10.4 L 21.0-51.0 % Monocytes (%) (Auto) 7.4 3.0-13.0 % Eosinophils (%) (Auto) 0.5 0.0-8.0 % Basophils (%) (Auto) 0.3 0.0-5.0 % Neutrophils # (Auto) 12.3 H 1.8-7.7 K/uL Lymphocytes # (Auto) 1.6 1.0-4.8 K/uL Monocytes # (Auto) 1.1 H 0.1-1.0 K/uL Eosinophils # (Auto) 0.07 0.00-0.70 K/uL Basophils # (Auto) 0.05 0.00-0.20 K/uL Absolute Immature Granulocyte (auto 0.16 0-1 K/uL Nucleated Red Blood Cells 0.0 0.0-0.19 % Sodium Level 141 136-145 mmol/L Potassium Level 3.1 L 3.5-5.1 mmol/L Chloride Level 103 101-111 mmol/L Carbon Dioxide Level 33 H 21-32 mmol/L Blood Urea Nitrogen 5 L 7-18 mg/dL Creatinine 0.5 0.5-1.0 mg/dL Glomerular Filtration Rate Calc 108 >90 mL/min Random Glucose 145 H 70-105 mg/dL Total Calcium 8.0 L 8.5-10.1 mg/dL Total Bilirubin 0.8 0.2-1.0 mg/dL Aspartate Amino Transf (AST/SGOT) 19 10-37 U/L Alanine Aminotransferase (ALT/SGPT) 16 12-78 U/L Alkaline Phosphatase 79 50-136 U/L Total Protein 6.5 6.0-8.3 g/dL Albumin 2.2 L 3.5-5.0 g/dL Whole Blood Glucose 116 H 70-110 MG/DL Vancomycin Level Trough 14.1 # 10.0-20.0 UG/ML Current Medications Medications (Trade) Dose Ordered Sig/Karthik Route PRN Reason Start Time Stop Time Status Last Admin Dose Admin Acetaminophen (TYLenol 325MG TAB) 650 mg Q4H PRN PO MILD PAIN (1-3) 04/26/24 01:00 05/26/24 00:59 05/03/24 08:50 650 MG Acetaminophen (TYLenol 325MG TAB) 650 mg Q6H PRN PO TEMPERATURE GREATER THAN 101.5 04/26/24 01:00 05/26/24 00:59 05/02/24 15:48 650 MG Acetaminophen/ Butalbital/ Caffeine (Msfqoemo-Nnyynyjtkluwo-Ylmp Tb) 1 each BID PRN PO TENSION HEADACHE 04/27/24 13:30 05/27/24 13:29 05/02/24 04:15 1 EACH Acyclovir (Zovirax 200mg Cap) 400 mg TID PO 04/30/24 14:00 05/02/24 13:54 DC 05/02/24 09:09 400 MG Azithromycin 250 ml @ 250 mls/hr ONCE IVPB 04/26/24 00:00 04/28/24 06:39 DC 04/28/24 00:24 250 MLS/HR Enoxaparin Sodium (Lovenox) 40 mg DAILY SQ 04/26/24 09:00 05/26/24 08:59 05/03/24 08:49 40 MG Famotidine (Pepcid 20mg Tab) 20 mg DAILY PO 04/26/24 09:00 05/26/24 08:59 05/03/24 08:49 20 MG Insulin Human Regular (humuLIN R 100 UNIT/ML 3ML) INSULIN SLIDING SCAL... ACHS SQ 04/26/24 07:30 05/26/24 07:29 04/28/24 21:11 4 UNIT Lactated Ringer's 1,000 ml @ 100 mls/hr Q10H IV 04/26/24 01:00 05/26/24 00:59 05/02/24 17:18 100 MLS/HR Lactated Ringer's (Lactated Ringers 1000ml) 1,000 ml ONCE IV 04/29/24 15:00 04/29/24 21:00 DC 04/29/24 15:48 1,000 ML Lidocaine HCl (Lidocaine HCl 2% Viscous) 10 ml TID PRN PO MOUTH SORES 04/30/24 12:00 05/30/24 11:59 04/30/24 13:09 10 ML Magnesium Sulfate 50 ml @ 0 mls/hr PROTOCOL PRN IV hypomagnesemia 04/26/24 01:00 05/26/24 00:59 04/29/24 04:53 25 MLS/HR Meropenem 1 gm/ Sodium Chloride 100 ml @ 33.333 mls/ hr Q8H IVPB 04/27/24 13:00 05/07/24 12:59 05/02/24 22:53 33.333 MLS/HR Midodrine (PROAMatine 5 MG TABLET) 10 mg TID PO 04/28/24 11:00 05/28/24 10:59 05/03/24 08:49 10 MG Morphine Sulfate (morPHINE 2MG SYG) 2 mg Q4H PRN IV SEVERE PAIN (7-10) 04/26/24 01:30 05/01/24 04:29 DC Norepinephrine 250 ml @ 0 mls/hr PROTOCOL IV 04/26/24 00:00 04/27/24 01:22 DC 04/26/24 21:11 58 MLS/HR Norepinephrine Bitartrate 32 mg/ Sodium Chloride 250 ml @ 0 mls/hr Q0M PRN IV ADMINISTER FOR SBP/DBP> 04/27/24 01:30 04/29/24 11:56 DC 04/27/24 02:00 27 MLS/HR Ondansetron HCl (zoFRAN 4MG INJ) 4 mg Q6H PRN IV NAUSEA/VOMITING 04/26/24 01:00 05/26/24 00:59 Pharmacy Profile Note (Pharmacy Communication) 1 each ONCE MISC 04/27/24 13:00 04/27/24 13:07 DC Piperacillin Sod/ Tazobactam Sod 50 ml @ 12.5 mls/hr ZOSY8 IV 04/26/24 05:00 04/27/24 12:58 DC 04/27/24 12:50 12.5 MLS/HR Potassium Chloride 100 ml @ 100 mls/hr AD PRN IV POTASSIUM PROTOCOL 04/26/24 01:00 05/26/24 00:59 04/29/24 04:54 100 MLS/HR Potassium Chloride (K-Dur/Klor-Con 20meq) 20 meq AD PRN PO POTASSIUM PROTOCOL 04/26/24 01:00 05/26/24 00:59 05/02/24 09:13 20 MEQ Potassium Chloride (K-Dur/Klor-Con 20meq) 20 meq AD PRN PO POTASSIUM PROTOCOL 04/29/24 09:00 04/29/24 08:45 DC Potassium Chloride (KCl 10% Elixir 20meq/15ml) 20 meq AD PRN PO POTASSIUM PROTOCOL 04/26/24 01:00 05/26/24 00:59 04/26/24 06:39 20 MEQ Potassium Chloride (KCl 10% Elixir 20meq/15ml) 20 meq AD PRN PO POTASSIUM PROTOCOL 04/29/24 09:00 04/29/24 08:44 DC Vancomycin HCl 250 ml @ 125 mls/hr Q12H IV 04/26/24 11:30 04/27/24 12:58 DC 04/27/24 12:50 125 MLS/HR Vancomycin HCl 250 ml @ 125 mls/hr Q12H9 IV 04/30/24 09:00 05/01/24 08:45 DC 04/30/24 19:33 125 MLS/HR Vancomycin HCl 250 ml @ 125 mls/hr Q8H IV 05/01/24 09:00 05/11/24 08:59 05/03/24 08:48 125 MLS/HR Vancomycin HCl 250 ml @ 125 mls/hr Q8H6 IV 04/27/24 14:00 04/27/24 12:58 DC Vancomycin HCl 500 ml @ 250 mls/hr ONCE IV 04/29/24 17:30 04/29/24 21:30 DC 04/29/24 20:34 250 MLS/HR Vancomycin HCl (Vancomycin Protocol) 1 each AD IV 04/26/24 07:00 04/27/24 12:58 DC Vancomycin HCl (Vancomycin Protocol) 1 each AD IV 04/29/24 16:00 05/13/24 15:59 Vasopressin 40 units/Sodium Chloride 42 ml @ 0 mls/hr AD PRN IV TITRATE 04/27/24 18:00 04/27/24 17:45 DC DIAGNOSTICS / RADIOLOGY: [ ] ASSESSMENT: Septic Shock - resolved Hypotension requiring vasopressor (Levophed) support - resolved Elevated lactic acid - resolved Neutropenia - POA Diabetes mellitus type II - POA Hypertension - POA OSH/ADAL - POA being treated at home with CPAP Morbid obesity BMI 49.8 PLAN: Septic Shock - POA Hypotension requiring vasopressor (Levophed) support - POA Elevated lactic acid - POA Neutropenia - POA - fluid resuscitation - received 4L in total - Blood cultures - E. coli - treat with Meropenem and Vancomycin to be dosed by pharmacy - ID consult - recheck labs in the am - monitor platelets and restart Lovenox Diabetes mellitus type II - POA - check hemoglobin A1c in the am - glucometer checks a.c. and HS - regular diet - Humulin R sliding scale one Hypertension - POA - avoid antihypertensive medications at this time due to hypotension Oral ulcers - being treated with acyclovir GI prophy - famotidine 20 mg PO QD DTV prophy - Lovenox 40 mg subQ QD Will continue to follow recommendations per pulmonolgy Will continue to follow recommendations per Infectious Disease ATTESTATION BY PHYSICIAN I have seen and examined the patient. I reviewed the documentation, medical decision making, and treatment plan as noted by the resident provider above. I agree with the findings and plan of care. Patrice Nazario MD, PRIYA N May 03, 2024 10:17
[2024-05-03] MEDS: ZOSYN 3.375GM +NS 50ML IV SCH (12:31)
[2024-05-03 13:32] LABS: INR 1.16 (0.85-1.15); PROTHROMBIN TIME 12.4 SEC (9.6-11.6)
[2024-05-03 13:33] LABS: PARTIAL THROMBOPLASTIN TIME 28.6 SEC (26.3-35.5)
[2024-05-03] MEDS: fluCONazole 100 MG TAB PO ONE (15:34)
--- NOTE | 2024-05-03 16:36 | PN ---
INFECTIOUS DISEASE PROGRESS NOTE Date of Service: May 03, 2024 SUBJECTIVE: Patient was seen and examined at bedside in room 319. Patient is awake, alert and oriented x 3. Patient has remained afebrile for 24 hours, current temperature is 98.2. The WBC however still slightly elevated at 15.3. The repeat blood cultures showing no growth for 3 days. We will discontinue meropenem and vancomycin and start patient on Zosyn IV Q 8 hours. We will have case management refer patient to [facility] for outpatient IV antibiotics with Zosyn IV x 14 days. No nausea or vomiting reported. We will continue to follow patient's care. PHYSICAL EXAM EYES: Anicteric. Pupils equal and reactive. HENT: No oral thrush seen, moist Oral mucosa. NECK: Supple, no JVD or thyromegaly. LUNGS: Good air entry. No rales, no rhonchi. Diminished breath sounds. Occasional cough. Oxygen via nasal cannula. CARDIOVASCULAR: S1, S2 regular. No murmur heard. ABDOMEN: Soft, non tender, bowel sounds hypoactive., no organomegaly. CENTRAL NERVOUS SYSTEM: Awake, alert, oriented x 3. SKIN: No rashes, no swelling. LYMPHATICS: No peripheral lymphadenopathy. MUSCULOSKELETAL: No joint swelling, erythema or tenderness. EXTREMITIES: No cyanosis or clubbing. Edema to the right foot. Patient stated his chronic sense a right ankle ORIF. BACK: No deformity, no pressure ulcer. GENITOURINARY: No dysuria or hematuria Vital Sign (Last 12 Hours) 05/03/24 05/03/24 05/03/24 05/03/24 06:57 08:00 08:00 12:00 Temp 98.2 98.2 Pulse 75 76 Resp 18 B/P (MAP) 119/58 120/59 Pulse Ox 93 93 94 O2 Delivery N/A Room Air Room Air Room Air* Room Air O2 Flow Rate 2.0 0 FiO2 28 21 Intake & Output (last 24hrs) 05/02/24 05/02/24 05/03/24 15:00 23:00 07:00 Intake Total 1200 ml 300 ml Output Total 1000 ml Balance -1000 ml 1200 ml 300 ml LABS: Laboratory: Test 05/03/24 15:15 05/03/24 13:13 05/03/24 09:29 05/02/24 08:03 Range/Units Whole Blood Glucose 139 H 70-110 MG/DL Prothrombin Time 12.4 H 9.6-11.6 SEC Prothromb Time International Ratio 1.16 H 0.85-1.15 Activated Partial Thromboplast Time 28.6 26.3-35.5 SEC White Blood Count 15.3 H 4.8-10.8 K/uL Red Blood Count 4.09 4.00-5.50 MIL/uL Hemoglobin 12.3 12.0-16.0 g/dL Hematocrit 36.6 36-48 % Mean Corpuscular Volume 89.5 79-99 fL Mean Corpuscular Hemoglobin 30.1 27.0-33.0 pg Mean Corpuscular Hemoglobin Concent 33.6 32.0-36.0 g/dL Red Cell Distribution Width 15.2 11.0-15.5 % Platelet Count 179 # 130-400 K/uL Mean Platelet Volume 11.0 H 7.5-10.5 fL Immature Granulocyte % (Auto) 1.0 0-1 % Neutrophils (%) (Auto) 80.4 H 40.0-77.0 % Lymphocytes (%) (Auto) 10.4 L 21.0-51.0 % Monocytes (%) (Auto) 7.4 3.0-13.0 % Eosinophils (%) (Auto) 0.5 0.0-8.0 % Basophils (%) (Auto) 0.3 0.0-5.0 % Neutrophils # (Auto) 12.3 H 1.8-7.7 K/uL Lymphocytes # (Auto) 1.6 1.0-4.8 K/uL Monocytes # (Auto) 1.1 H 0.1-1.0 K/uL Eosinophils # (Auto) 0.07 0.00-0.70 K/uL Basophils # (Auto) 0.05 0.00-0.20 K/uL Absolute Immature Granulocyte (auto 0.16 0-1 K/uL Nucleated Red Blood Cells 0.0 0.0-0.19 % Sodium Level 141 136-145 mmol/L Potassium Level 3.1 L 3.5-5.1 mmol/L Chloride Level 103 101-111 mmol/L Carbon Dioxide Level 33 H 21-32 mmol/L Blood Urea Nitrogen 5 L 7-18 mg/dL Creatinine 0.5 0.5-1.0 mg/dL Glomerular Filtration Rate Calc 108 >90 mL/min Random Glucose 145 H 70-105 mg/dL Total Calcium 8.0 L 8.5-10.1 mg/dL Total Bilirubin 0.8 0.2-1.0 mg/dL Aspartate Amino Transf (AST/SGOT) 19 10-37 U/L Alanine Aminotransferase (ALT/SGPT) 16 12-78 U/L Alkaline Phosphatase 79 50-136 U/L Total Protein 6.5 6.0-8.3 g/dL Albumin 2.2 L 3.5-5.0 g/dL Vancomycin Level Trough 14.1 # 10.0-20.0 UG/ML ASSESSMENT: E coli bacteremia. Urinary tract infection with E coli. Sepsis. Pneumonia Will Jes albicans. Leukocytosis resolving. Left flank pain, pyelonephritis ruled out. Diabetes mellitus. PLAN: Discontinue vancomycin. Discontinue meropenem. Start Zosyn 3.375 g IV every [address] midline. Case management to evaluate for referral to [facility] for outpatient IV antibiotics with Zosyn x 14 days. Continue GI prophylaxis. Continue antidiabetics. This case was reviewed and discussed with my supervising physician and the above assessment and plan was formulated and agreed upon. ATTESTATION BY PHYSICIAN I have seen and examined the patient. I reviewed the documentation, medical decision making, and treatment plan as noted by the mid-level provider above. I agree with the findings and plan of care. DAMARIS OROSCO MD, [facility]TA [facility] May 03, 2024 16:36
--- NOTE | 2024-05-03 16:48 | NUR ---
Discharge Planning: Referral sent to [facility] for O/P IV ABX. Pending insurance authorization.
[2024-05-04 04:10] VITALS: BP 136/71; PULSE 82; RESP 18; TEMP 98.5
[2024-05-04 05:59] LABS: BASOPHILS # (AUTO) 0.03 K/uL (0.00-0.20); BASOPHILS % (AUTO) 0.3 % (0.0-5.0); EOSINOPHILS # (AUTO) 0.17 K/uL (0.00-0.70); EOSINOPHILS % (AUTO) 1.5 % (0.0-8.0); HEMATOCRIT 35.1 % (36-48); IMMATURE GRANULOCYTE ABSOLUTE 0.09 K/uL (0-1); LYMPHOCYTES # (AUTO) 1.9 K/uL (1.0-4.8); LYMPHOCYTES % (AUTO) 17.6 % (21.0-51.0); MEAN CORPUSCULAR HEMOGLOBIN 29.9 pg (27.0-33.0); MEAN CORPUSCULAR HGB CONC 33.6 g/dL (32.0-36.0); MEAN CORPUSCULAR VOLUME 88.9 fL (79-99); MONOCYTES # (AUTO) 0.8 K/uL (0.1-1.0); MONOCYTES % (AUTO) 7.5 % (3.0-13.0); NEUTROPHILS % (AUTO) 72.3 % (40.0-77.0); PLATELET COUNT (AUTO) 219 K/uL (130-400); RED BLOOD CELL COUNT(AUTO) 3.95 MIL/uL (4.00-5.50); RED CELL DISTRIBUTION WIDTH 15.2 % (11.0-15.5)
[2024-05-04 06:25] LABS: ALBUMIN 2.2 g/dL (3.5-5.0); BILIRUBIN,TOTAL 0.7 mg/dL (0.2-1.0); CREATININE 0.6 mg/dL (0.5-1.0); POTASSIUM 3.6 mmol/L (3.5-5.1); TOTAL PROTEIN, SERUM 6.5 g/dL (6.0-8.3)
[2024-05-04 07:16] VITALS: PULSE 75; RESP 18; O2SAT 95
[2024-05-04 07:59] VITALS: BP 119/69; PULSE 76; RESP 19; TEMP 98.1
[2024-05-04 08:00] VITALS: O2SAT 93
--- NOTE | 2024-05-04 09:51 | PN ---
[facility] PROGRESS NOTE Date of Service: May 04, 2024 Time of Service: 09:51 SUBJECTIVE: 04/26 - patient is 58 year old female seen at bedside afebrile, HR 80, BP115/60, tachypneic on 4L nasal cannula. Patient complains of chills and feeling unwell. She continues be on Levophed and triple antibiotics - Vancomycin, Zosyn, Azithromycin. Remarkable labs: white count increased significantly from 3.5 to 35.2, platelets decreased significantly from 161K to 63K. Sodium 146, potassium 2.7, BUN and creatinine within normal range. Lactic acid trending down from 3.72 to 2.7, ABG pH 7.458, CO2 27, O2 59.9, HCO3 18.8, magnesium 1.3, procalcitonin elevated 1.16. BNP and troponins within normal range. CT abdomen/pelvis showed single air bubble in normal appearing left kidney, c onsistent with air refluxing into the kidney from the urinary bladder. Kidneys appear normal otherwise. A small amount of air is present in a nondistended urinary bladder there is a Segovia catheter in position, the air could represent emphysematous cystitis or be secondary to instrumentation. Gallbladder is absent. Potassium protocol initiated. If platelets continue to drop will consider ordering HIT panel and possibly holding Lovenox. Patient is being followed by critical care. We will continue to medically manage and follow recommendations. 04/27 - patient seen at bedside, afebrile heart rate 82, tachypneic on 3L nasal cannula, BP 86/39. Patient appears more comfortable but states she was unable to sleep due to CPAP machine and anxiety. Remarkable labs: white count trending down from 35.2 to 31.4, platelets up from 63K to 69K. Sodium 146, calcium 7.7, magnesium 1.9, procalcitonin 20.92, BUN and creatinine within normal range. Patient remains on vancomycin, zosyn, and azithromycin. Patient on Levophed and will continue to try to wean off. Patient had a central line placed on the right yesterday and tolerated the procedure well. Lovenox held due to low platelets. Will continue to monitor and medically manage and follow recommendations per critical care team. 04/28 - Patient seen at bedside accompanied by her daughter. She is comfortable, afebrile, on 3L nasal cannula. Patient nasal secretions negative for MRSA. Patient blood culture positive for e.coli. She is currently on Meropenem, no longer on vancomycin, Zosyn, and azithromycin. Remarkable labs: white count trending down from 31.4 to 23.7, platelets up from 69K to 72. chemistries within normal range. Patient was taken off Levophed yesterday but her blood pressure dropped and was placed on Levophed again. She remains on Levophed and will wean off. We will continue to monitor and medically manage and follow recommendations per critical care team. 04/30 - Patient seen at bedside. tmax 99.1, HR 72 on 2L nasal cannula. Patient had fever and chills last night. Infectious Disease consulted. Patient placed on Vancomycin to be dosed by pharmacy. Patient complains of blisters on tongue and chills this AM. Repeat blood cultures pending. She is on Vancomycin and Meropenem. She is no longer on Levophed and can discontinue telemetry per protocol. Chest xray shows mild pulmonary vascular congestion. Patient denies nausea, vomiting, diarrhea. Remarkable labs: white count trending from 13.3 to 6.4 to 12.4, today. platelets up from 77 to 64 to 86K today. We will continue to monitor and medically manage. We will follow recommendations per pulmonology and infectious disease. 05/01 - Patient seen at bedside. Temp 98.8, HR 80, on room air. Patient states she is feeling better than previous day. Her white count continues to trend down from 12.4 to 11.3. Chemistries are WNL. Patient remains on Vancomycin being dosed by pharmacy - trough is 5.5, Meropenem, and Acyclovir. Respiratory sputum culture results show Jes Albicans and gram positive cocci. Second blood cultures results pending. We will continue to monitor and medically manage and follow recommendations per Infectious Disease and Pulmonology. 05/02 - Patient seen at bedside. Per nurse patient had fever and chills overnight. Tmax of 101. Breathing on 2L nasal cannula. Patient remains on Vancomycin, Meropenem, and Acyclovir. Pulmonology has signed off. We will continue to follow recommendations per infectious disease. Remarkable labs: white count up from 11.3 to 13.1, platelets uptrending from 99K to 118K. Potassium 3.1, will initiate potassium protocol. remaining chemistries unremarkable. 05/03 - Patient seen at bedside accompanied by daughter. Patient had a low grade fever last night but denies chills. She currently complains of a headache and was given Tylenol. Patient has herpetic lesions on left lower lip. Patient continues on Vancomycin and Merrem. Will add Diflucan for Jes coverage. Will request physical therapy evaluation for patient to become more mobile. Remarkable labs: white count uptrending from 13 to 15, platelets 118K. Potassium 3.1, BUN 5, creatinine 0.5, albumin 2.2. Will order labs for the AM. Will continue to follow recommendations from infectious disease. 05/04 - Patient seen at bedside. She looks more comfortable. No overnight acute events. Patient no longer on vancomycin, Merrem, and Diflucan. Patient currently on Zosyn IV. Per ifectious disease patient will receive midline placement today for IV antibiotics. Patient once cleared by insurance is able to receive IV Zosyn outpatient at [facility] for 14 days. Remarkable labs: white count down from 15 to 11, H&H stable, platelets continue up trending, chemistries unremarkable. We will continue to follow recommendations per infectious disease. REVIEW OF SYSTEMS CONSTITUTIONAL: Complains of fevers, chills, denies night sweats. No unintentional weight loss reported. NEUROLOGICAL: Denies headache, amaurosis fugax, motor weakness, sensory deficit, vertigo/spinning sensation, gait abnormalities, or tremors. ENT: No hearing loss, otalgia, otorrhea, rhinitis, rhinorrhea, hoarseness, or sore throat. CARDIOVASCULAR: Denies any exertional angina, dyspnea on exertion, orthopnea, paroxysmal nocturnal dyspnea, palpitations, life-threatening arrhythmias, claudication. PULMONARY: Denies any shortness of breath, cough, phlegm/sputum, hemoptysis, pleuritic chest pain. SLEEP: Denies morning headaches, daytime somnolence or napping. Denies difficulty falling asleep, staying asleep, waking from sleep. Denies knowledge of snoring. GASTROINTESTINAL: Denies any type of dysphagia to either liquids or solids. Denies nausea, vomiting, pyrosis, early satiety, abdominal pain, diarrhea, constipation, or changes in stool consistency or caliber. Denies coffee-ground emesis, hematemesis, hematochezia, or melanotic stools. GENITOURINARY: Denies frequency, urgency, nocturia, hematuria or incontinence (Storage/Irritative symptoms.) Low urinary stream, straining to void, urinary intermittency or hesitancy, splitting of the voiding stream, terminal dribbling. ENDOCRINOLOGIC: Denies polyuria, polydipsia, polyphagia or heat/cold intolerances. HEMATOLOGIC: Denies thrombophilia/previous clots, or coagulopathy/bleeding disorders. ONCOLOGIC: Denies personal history of malignancy. DERMATOLOGIC: Denies rashes or pruritus. Complains of blisters on tongue and PSYCHIATRIC: Denies any suicidal or homicidal ideation. Denies hallucinations. PHYSICAL EXAM GENERAL APPEARANCE: The patient is awake, alert, and oriented, in no acute cardiopulmonary distress. NEUROLOGICAL: Cranial nerves II-XII grossly intact. Motor is 5/5 in bilateral upper and lower extremities proximal to distal. No sensory deficits. HEENT: Face is symmetric. Pupils are equal and reactive. Extraocular movements are intact. NECK: Supple. No JVD. No thyromegaly. No submental, submandibular, pre- /postauricular, occipital or supraclavicular lymphadenopathy. CHEST: Normal chest expansion. No Telemetry. LUNGS: Absence of any rales, positive for rhonchi Negative for any wheezing. CARDIOVASCULAR: Regular. S1 and S2 normal. No appreciable rubs, murmurs or gallops. ABDOMEN: Soft, nontender, and nondistended. There is no rebound, voluntary guarding, or rigidity. : Deferred. No Segovia. EXTREMITIES: Non-edematous and not cyanotic. No clubbing. Good capillary refill. SKIN: No skin breakdown. Vital Signs (last 8hr) Date Time Temp Pulse Resp B/P (MAP) Pulse Ox O2 Delivery O2 Flow Rate FiO2 05/04/24 07:59 98.1 76 19 119/69 93 Room Air 05/04/24 07:16 75 18 N/A Room Air 05/04/24 04:10 98.4 82 18 136/71 93 Room Air LABS: Laboratory: Test 05/04/24 05:47 05/04/24 05:27 05/03/24 13:13 Range/Units White Blood Count 11.0 #H 4.8-10.8 K/uL Red Blood Count 3.95 L 4.00-5.50 MIL/uL Hemoglobin 11.8 L 12.0-16.0 g/dL Hematocrit 35.1 L 36-48 % Mean Corpuscular Volume 88.9 79-99 fL Mean Corpuscular Hemoglobin 29.9 27.0-33.0 pg Mean Corpuscular Hemoglobin Concent 33.6 32.0-36.0 g/dL Red Cell Distribution Width 15.2 11.0-15.5 % Platelet Count 219 130-400 K/uL Mean Platelet Volume 10.5 7.5-10.5 fL Immature Granulocyte % (Auto) 0.8 0-1 % Neutrophils (%) (Auto) 72.3 40.0-77.0 % Lymphocytes (%) (Auto) 17.6 L 21.0-51.0 % Monocytes (%) (Auto) 7.5 3.0-13.0 % Eosinophils (%) (Auto) 1.5 0.0-8.0 % Basophils (%) (Auto) 0.3 0.0-5.0 % Neutrophils # (Auto) 8.0 H 1.8-7.7 K/uL Lymphocytes # (Auto) 1.9 1.0-4.8 K/uL Monocytes # (Auto) 0.8 0.1-1.0 K/uL Eosinophils # (Auto) 0.17 0.00-0.70 K/uL Basophils # (Auto) 0.03 0.00-0.20 K/uL Absolute Immature Granulocyte (auto 0.09 0-1 K/uL Nucleated Red Blood Cells 0.0 0.0-0.19 % Sodium Level 145 136-145 mmol/L Potassium Level 3.6 3.5-5.1 mmol/L Chloride Level 107 101-111 mmol/L Carbon Dioxide Level 30 21-32 mmol/L Blood Urea Nitrogen 7 7-18 mg/dL Creatinine 0.6 0.5-1.0 mg/dL Glomerular Filtration Rate Calc 103 >90 mL/min Random Glucose 114 H 70-105 mg/dL Total Calcium 7.9 L 8.5-10.1 mg/dL Total Bilirubin 0.7 0.2-1.0 mg/dL Aspartate Amino Transf (AST/SGOT) 14 10-37 U/L Alanine Aminotransferase (ALT/SGPT) 17 12-78 U/L Alkaline Phosphatase 74 50-136 U/L C-Reactive Protein, Quantitative 113.60 H 0.5-3.0 mg/L Total Protein 6.5 6.0-8.3 g/dL Albumin 2.2 L 3.5-5.0 g/dL Procalcitonin 0.88 H 0.05-0.5 ng/mL Whole Blood Glucose 114 H 70-110 MG/DL Prothrombin Time 12.4 H 9.6-11.6 SEC Prothromb Time International Ratio 1.16 H 0.85-1.15 Activated Partial Thromboplast Time 28.6 26.3-35.5 SEC Current Medications Medications (Trade) Dose Ordered Sig/Karthik Route PRN Reason Start Time Stop Time Status Last Admin Dose Admin Acetaminophen (TYLenol 325MG TAB) 650 mg Q4H PRN PO MILD PAIN (1-3) 04/26/24 01:00 05/26/24 00:59 05/03/24 08:50 650 MG Acetaminophen (TYLenol 325MG TAB) 650 mg Q6H PRN PO TEMPERATURE GREATER THAN 101.5 04/26/24 01:00 05/26/24 00:59 05/02/24 15:48 650 MG Acetaminophen/ Butalbital/ Caffeine (Scxqejpz-Qijnialsrzjwd-Omri Tb) 1 each BID PRN PO TENSION HEADACHE 04/27/24 13:30 05/27/24 13:29 05/02/24 04:15 1 EACH Acyclovir (Zovirax 200mg Cap) 400 mg TID PO 04/30/24 14:00 05/02/24 13:54 DC 05/02/24 09:09 400 MG Azithromycin 250 ml @ 250 mls/hr ONCE IVPB 04/26/24 00:00 04/28/24 06:39 DC 04/28/24 00:24 250 MLS/HR Enoxaparin Sodium (Lovenox) 40 mg DAILY SQ 04/26/24 09:00 05/26/24 08:59 05/04/24 08:42 40 MG Famotidine (Pepcid 20mg Tab) 20 mg DAILY PO 04/26/24 09:00 05/26/24 08:59 05/04/24 08:42 20 MG Insulin Human Regular (humuLIN R 100 UNIT/ML 3ML) INSULIN SLIDING SCAL... ACHS SQ 04/26/24 07:30 05/26/24 07:29 04/28/24 21:11 4 UNIT Lactated Ringer's 1,000 ml @ 100 mls/hr Q10H IV 04/26/24 01:00 05/26/24 00:59 05/02/24 17:18 100 MLS/HR Lactated Ringer's (Lactated Ringers 1000ml) 1,000 ml ONCE IV 04/29/24 15:00 04/29/24 21:00 DC 04/29/24 15:48 1,000 ML Lidocaine HCl (Lidocaine HCl 2% Viscous) 10 ml TID PRN PO MOUTH SORES 04/30/24 12:00 05/30/24 11:59 04/30/24 13:09 10 ML Magnesium Sulfate 50 ml @ 0 mls/hr PROTOCOL PRN IV hypomagnesemia 04/26/24 01:00 05/26/24 00:59 04/29/24 04:53 25 MLS/HR Meropenem 1 gm/ Sodium Chloride 100 ml @ 33.333 mls/ hr Q8H IVPB 04/27/24 13:00 05/03/24 11:47 DC 05/02/24 22:53 33.333 MLS/HR Midodrine (PROAMatine 5 MG TABLET) 10 mg TID PO 04/28/24 11:00 05/28/24 10:59 05/03/24 20:46 10 MG Morphine Sulfate (morPHINE 2MG SYG) 2 mg Q4H PRN IV SEVERE PAIN (7-10) 04/26/24 01:30 05/01/24 04:29 DC Norepinephrine 250 ml @ 0 mls/hr PROTOCOL IV 04/26/24 00:00 04/27/24 01:22 DC 04/26/24 21:11 58 MLS/HR Norepinephrine Bitartrate 32 mg/ Sodium Chloride 250 ml @ 0 mls/hr Q0M PRN IV ADMINISTER FOR SBP/DBP> 04/27/24 01:30 04/29/24 11:56 DC 04/27/24 02:00 27 MLS/HR Ondansetron HCl (zoFRAN 4MG INJ) 4 mg Q6H PRN IV NAUSEA/VOMITING 04/26/24 01:00 05/26/24 00:59 Pharmacy Profile Note (Pharmacy Communication) 1 each ONCE MISC 04/27/24 13:00 04/27/24 13:07 DC Piperacillin Sod/ Tazobactam Sod 50 ml @ 12.5 mls/hr ZOSY8 IV 04/26/24 05:00 04/27/24 12:58 DC 04/27/24 12:50 12.5 MLS/HR Piperacillin Sod/ Tazobactam Sod (Zosyn 3.375gm+NS 50ml) 3.375 gm Q8H IV 05/03/24 12:00 05/13/24 11:59 05/04/24 03:45 3.375 GM Potassium Chloride 100 ml @ 100 mls/hr AD PRN IV POTASSIUM PROTOCOL 04/26/24 01:00 05/26/24 00:59 04/29/24 04:54 100 MLS/HR Potassium Chloride (K-Dur/Klor-Con 20meq) 20 meq AD PRN PO POTASSIUM PROTOCOL 04/26/24 01:00 05/26/24 00:59 05/03/24 15:34 20 MEQ Potassium Chloride (K-Dur/Klor-Con 20meq) 20 meq AD PRN PO POTASSIUM PROTOCOL 04/29/24 09:00 04/29/24 08:45 DC Potassium Chloride (KCl 10% Elixir 20meq/15ml) 20 meq AD PRN PO POTASSIUM PROTOCOL 04/26/24 01:00 05/26/24 00:59 04/26/24 06:39 20 MEQ Potassium Chloride (KCl 10% Elixir 20meq/15ml) 20 meq AD PRN PO POTASSIUM PROTOCOL 04/29/24 09:00 04/29/24 08:44 DC Vancomycin HCl 250 ml @ 125 mls/hr Q12H IV 04/26/24 11:30 04/27/24 12:58 DC 04/27/24 12:50 125 MLS/HR Vancomycin HCl 250 ml @ 125 mls/hr Q12H9 IV 04/30/24 09:00 05/01/24 08:45 DC 04/30/24 19:33 125 MLS/HR Vancomycin HCl 250 ml @ 125 mls/hr Q8H IV 05/01/24 09:00 05/03/24 11:47 DC 05/03/24 08:48 125 MLS/HR Vancomycin HCl 250 ml @ 125 mls/hr Q8H6 IV 04/27/24 14:00 04/27/24 12:58 DC Vancomycin HCl 500 ml @ 250 mls/hr ONCE IV 04/29/24 17:30 04/29/24 21:30 DC 04/29/24 20:34 250 MLS/HR Vancomycin HCl (Vancomycin Protocol) 1 each AD IV 04/26/24 07:00 04/27/24 12:58 DC Vancomycin HCl (Vancomycin Protocol) 1 each AD IV 04/29/24 16:00 05/03/24 11:47 DC Vasopressin 40 units/Sodium Chloride 42 ml @ 0 mls/hr AD PRN IV TITRATE 04/27/24 18:00 04/27/24 17:45 DC DIAGNOSTICS / RADIOLOGY: [ ] ASSESSMENT: Septic Shock - resolved Hypotension requiring vasopressor (Levophed) support - resolved Elevated lactic acid - resolved Neutropenia - POA Diabetes mellitus type II - POA Hypertension - POA OSH/ADAL - POA being treated at home with CPAP Morbid obesity BMI 49.8 PLAN: Septic Shock - POA Hypotension requiring vasopressor (Levophed) support - POA Elevated lactic acid - POA Neutropenia - POA - fluid resuscitation - received 4L in total - Blood cultures - E. coli - treat with zosyn IV - recheck labs in the am - monitor platelets and restart Lovenox Diabetes mellitus type II - POA - check hemoglobin A1c in the am - glucometer checks a.c. and HS - regular diet - Humulin R sliding scale one Hypertension - POA - avoid antihypertensive medications at this time due to hypotension Oral ulcers - being treated with acyclovir GI prophy - famotidine 20 mg PO QD DTV prophy - Lovenox 40 mg subQ QD Will continue to follow recommendations per pulmonolgy Will continue to follow recommendations per Infectious Disease ATTESTATION BY PHYSICIAN I have seen and examined the patient. I reviewed the documentation, medical decision making, and treatment plan as noted by the resident provider above. I agree with the findings and plan of care. Patrice Nazario MD, PRIYA N May 04, 2024 09:51
--- NOTE | 2024-05-04 12:08 | PN ---
INFECTIOUS DISEASE PROGRESS NOTE Date of Service: May 04, 2024 SUBJECTIVE: Patient was seen and examined at bedside in room 319. Patient is awake, alert and oriented x 3. Patient is pending a midline placement and authorization [facility] for outpatient IV antibiotics with Zosyn IV x 14 days. No nausea or vomiting reported. We will continue to follow patient's care. PHYSICAL EXAM EYES: Anicteric. Pupils equal and reactive. HENT: No oral thrush seen, moist Oral mucosa. NECK: Supple, no JVD or thyromegaly. LUNGS: Good air entry. No rales, no rhonchi. Diminished breath sounds. Occasional cough. Oxygen via nasal cannula. CARDIOVASCULAR: S1, S2 regular. No murmur heard. ABDOMEN: Soft, non tender, bowel sounds hypoactive., no organomegaly. CENTRAL NERVOUS SYSTEM: Awake, alert, oriented x 3. SKIN: No rashes, no swelling. LYMPHATICS: No peripheral lymphadenopathy. MUSCULOSKELETAL: No joint swelling, erythema or tenderness. EXTREMITIES: No cyanosis or clubbing. Edema to the right foot. Patient stated his chronic sense a right ankle ORIF. BACK: No deformity, no pressure ulcer. GENITOURINARY: No dysuria or hematuria Vital Sign (Last 12 Hours) 05/04/24 05/04/24 05/04/24 04:10 07:16 07:59 Temp 98.4 98.1 Pulse 82 75 76 Resp 18 18 19 B/P (MAP) 136/71 119/69 Pulse Ox 93 93 O2 Delivery Room Air N/A Room Air Room Air FiO2 21 LABS: Laboratory: Test 05/04/24 10:47 05/04/24 05:47 05/03/24 13:13 Range/Units Whole Blood Glucose 161 H 70-110 MG/DL White Blood Count 11.0 #H 4.8-10.8 K/uL Red Blood Count 3.95 L 4.00-5.50 MIL/uL Hemoglobin 11.8 L 12.0-16.0 g/dL Hematocrit 35.1 L 36-48 % Mean Corpuscular Volume 88.9 79-99 fL Mean Corpuscular Hemoglobin 29.9 27.0-33.0 pg Mean Corpuscular Hemoglobin Concent 33.6 32.0-36.0 g/dL Red Cell Distribution Width 15.2 11.0-15.5 % Platelet Count 219 130-400 K/uL Mean Platelet Volume 10.5 7.5-10.5 fL Immature Granulocyte % (Auto) 0.8 0-1 % Neutrophils (%) (Auto) 72.3 40.0-77.0 % Lymphocytes (%) (Auto) 17.6 L 21.0-51.0 % Monocytes (%) (Auto) 7.5 3.0-13.0 % Eosinophils (%) (Auto) 1.5 0.0-8.0 % Basophils (%) (Auto) 0.3 0.0-5.0 % Neutrophils # (Auto) 8.0 H 1.8-7.7 K/uL Lymphocytes # (Auto) 1.9 1.0-4.8 K/uL Monocytes # (Auto) 0.8 0.1-1.0 K/uL Eosinophils # (Auto) 0.17 0.00-0.70 K/uL Basophils # (Auto) 0.03 0.00-0.20 K/uL Absolute Immature Granulocyte (auto 0.09 0-1 K/uL Nucleated Red Blood Cells 0.0 0.0-0.19 % Sodium Level 145 136-145 mmol/L Potassium Level 3.6 3.5-5.1 mmol/L Chloride Level 107 101-111 mmol/L Carbon Dioxide Level 30 21-32 mmol/L Blood Urea Nitrogen 7 7-18 mg/dL Creatinine 0.6 0.5-1.0 mg/dL Glomerular Filtration Rate Calc 103 >90 mL/min Random Glucose 114 H 70-105 mg/dL Total Calcium 7.9 L 8.5-10.1 mg/dL Total Bilirubin 0.7 0.2-1.0 mg/dL Aspartate Amino Transf (AST/SGOT) 14 10-37 U/L Alanine Aminotransferase (ALT/SGPT) 17 12-78 U/L Alkaline Phosphatase 74 50-136 U/L C-Reactive Protein, Quantitative 113.60 H 0.5-3.0 mg/L Total Protein 6.5 6.0-8.3 g/dL Albumin 2.2 L 3.5-5.0 g/dL Procalcitonin 0.88 H 0.05-0.5 ng/mL Prothrombin Time 12.4 H 9.6-11.6 SEC Prothromb Time International Ratio 1.16 H 0.85-1.15 Activated Partial Thromboplast Time 28.6 26.3-35.5 SEC ASSESSMENT: E coli bacteremia. Urinary tract infection with E coli. Sepsis. Pneumonia Will Jes albicans. Leukocytosis resolving. Left flank pain, pyelonephritis ruled out. Diabetes mellitus. PLAN: Pending a midline placement. Continue Zosyn 3.375 g IV every 8 hours. Pending insurance authorization to [facility] for outpatient IV antibiotics. Continue GI prophylaxis. Continue antidiabetics. This case was reviewed and discussed with my supervising physician and the above assessment and plan was formulated and agreed upon. ATTESTATION BY PHYSICIAN I have seen and examined the patient. I reviewed the documentation, medical decision making, and treatment plan as noted by the mid-level provider above. I agree with the findings and plan of care. DAMARIS OROSCO MD, MIRTA L [facility] May 04, 2024 12:08
--- NOTE | 2024-05-04 12:15 | NUR ---
MIDLINE PLACEMENT 5 FR 2 LUMEN MIDLINE placed on right upper arm cephalic vein with ultrasound guidance under sterile technique. Patient tolerated procedure well Catheter not trimmed. Internal length 14 cm, external length 1cm. Arm circumference 34 cm. Blood return obtained in all 2 lumens, MIDLINE care Perform hand hygiene, don gloves, scrub each hub with alcohol prep pad for 15 seconds each before every access. Flush each port with 10ml NS flush, if line is not in use, and clamp after every access. Change PICC dressing every 7 days and/or PRN if soiled or peeling off using sterile technique.
--- NOTE | 2024-05-04 16:17 | NUR ---
Discharge Planning: Pt. accepted at [facility] for O/P IV ABX. Appt. is for tomorrow at 8 am. Pt. and nurse given appt. information. Plan is for d/c home today.
--- NOTE | 2024-05-04 16:33 | DS ---
Discharge Summary Hospital Course Summary: Patient is a 58-year-old female with a past medical history of diabetes type 2, hypertension who presented to the ED with complaints of chills and uncontrolled shivering. Patient states she also had left flank pain. Labs were drawn in the ED as well as a chest x-ray. Patient was hypotensive and did not respond to fluid resuscitation. She was subsequently started on a vasopressor, Levophed. She was admitted to the ICU for septic shock with hypotension requiring vasopressor support. Patient was seen and treated by the critical Care team as well as Infectious Disease. Blood cultures were positive for E coli and patient was treated with antibiotics accordingly. Four days after admission patient was weaned off of Levophed but remained on 3 L of nasal cannula and IV antibiotics. Patient continued to have an undulating fever requiring further antibiotics. She continued on vancomycin, meropenem, acyclovir, and azithromycin. We continued to trend her white count. Patient was seen at bedside today and has been fever free for 24 hours. However her white count is still elevated and per Infectious Disease requires a midline in order to receive IV Zosyn antibiotic as an outpatient a [facility] for 14 days. Patient's vitals are stable and she is medically cleared for discharge. Electronic Train Control Technician(s): Infectious Disease Pulmonology Procedure(s): [place] [address] [address] IMAGING REPORT Signed PATIENT: CLARK SOLIS MR#: [id number] : 1965 SEX: F AGE: 58 LOCATION: EDHIP ORDER 30 STATUS: ADM IN REPORT#: [id number] SERVICE 27 REASON: sepsis ORDERING PHYSICIAN: ROMMEL HEAD MD PROCEDURE: CXR1VW - CHEST 1VW CHEST 1VW REASON: sepsis COMPARISON: None FINDINGS: Single view of the chest was obtained. Lungs are clear. Heart size is normal. There is no pulmonary vascular congestion. Mediastinum and bony thorax appear unremarkable. IMPRESSION: 1. Normal single view chest x-ray. DICTATED BY: SHWETA MARCIAL MD DATE: 04/26/24850 ELECTRONICALLY SIGNED BY: SHWETA MARCIAL MD DATE: 04/26/24 0854 [facility] [address] [place] [address] IMAGING REPORT Signed PATIENT: CLARK SOLIS MR#: [id number] : 1965 SEX: F AGE: 58 LOCATION: EDHIP ORDER 0001 STATUS: ADM IN REPORT#: [id number] SERVICE 8509 REASON: Left flank tenderness Evaulate pyeloneprhitis , intra abdominal abscess ORDERING PHYSICIAN: ROMMEL HEAD MD PROCEDURE: ABD PEL WO - CT ABDOMEN/PELVIS W/O CONTRAST CT ABDOMEN/PELVIS W/O CONTRAST REASON: Left flank tenderness Evaulate pyeloneprhitis , intra abdominal abscess COMPARISON: None. FINDINGS: Lung bases are clear. There are no focal liver lesions. The liver does not appear enlarged.. Spleen and pancreas appear unremarkable. There has been a previous cholecystectomy. There is a Segovia catheter present in urinary bladder. There is some air bubbles present within the nondistended bladder as well. There is a single small air bubble and a middle pole calyx of the left kidney. The left kidney appears otherwise unremarkable. There is no evidence of mass or stone in either kidney. There is no hydronephrosis. There are no perinephric inflammatory changes. The air bubble appears most likely a result of air in the bladder from either emphysematous cystitis or instrumentation there is no inflammation to suggest the emphysematous pyelonephritis. Bowel loops appear unremarkable. There is no CT evidence of acute appendicitis. There is no evidence of free fluid or intraperitoneal air. There are no focal fluid collections. Aorta and retroperitoneum appear normal as do pelvic soft tissue structures. The anterior abdominal wall is intact. Osseous structures appear unremarkable. IMPRESSION: 1. Single air bubble present in an otherwise normal-appearing left kidney, this appears most consistent with air refluxing into the kidney from the urinary bladder, emphysematous pyelonephritis less likely as there are no secondary signs such as perinephric inflammation. 2. Kidneys appear otherwise unremarkable. 3. There is a small amount of air present in a nondistended urinary bladder, there is a Segovia catheter in position, the air could represent emphysematous cystitis or be secondary to instrumentation. 4. Absent gallbladder, otherwise unremarkable exam. CT was performed with one or more following dose reduction techniques: automated exposure control, adjustment of the mA and kv according to patient's size, or use of a iterative reconstruction technique. DICTATED BY: SHWETA MARCIAL MD DATE: 04/26/24914 ELECTRONICALLY SIGNED BY: SHWETA MARCIAL MD DATE: 04/26/24920 [place] [id number] [place] [address] IMAGING REPORT Signed PATIENT: CLARK SOLIS MR#: [id number] : 1965 SEX: F AGE: 58 LOCATION: 2BH ORDER 1430 STATUS: ADM IN REPORT#: [id number] SERVICE 142 REASON: Central line placement ORDERING PHYSICIAN: KB FERNANDEZ CNP PROCEDURE: CXR1VW - CHEST 1VW CHEST 1VW REASON: Central line placement COMPARISON: 04/25/2024 FINDINGS: There is mild cardiomegaly. There is mild central vascular congestion. There is a right IJ central line with tip at atrial caval junction. IMPRESSION: 1. Mild cardiomegaly with mild pulmonary vascular congestion. 2. Right IJ central line with tip at the atrial caval junction. DICTATED BY: SHWETA MARCIAL MD DATE: 04/26/241455 ELECTRONICALLY SIGNED BY: SHWETA MARCIAL MD DATE: 04/26/24 145 [place] [address] [id number] IMAGING REPORT Signed PATIENT: CLARK SOLIS MR#: [id number] : 1965 SEX: F AGE: 58 LOCATION: 2BH ORDER 1155 STATUS: ADM IN REPORT#: [id number] SERVICE 1158 REASON: hypoxia, OHS ORDERING PHYSICIAN: KB FERNANDEZ CNP PROCEDURE: CXR1VW - CHEST 1VW PORTABLE CHEST RADIOGRAPH INDICATION: hypoxia, OHS COMPARISON: 04/26/2024 FINDINGS: court recording monitor leads overlie the field of view. Stable right IJ catheter. Heart size is normal. Pulmonary vascularity is slightly enlarged. No abnormal pulmonary parenchymal opacity or consolidation identified. No significant pleural effusion noted. No pneumothorax detected. IMPRESSION: Mild pulmonary vascular congestion. DICTATED BY: MEY SMITH MD DATE: 04/29/24 1227 ELECTRONICALLY SIGNED BY: MEY SMITH MD DATE: 04/29/24 1231 [place] [address] [address] IMAGING REPORT Signed PATIENT: CLARK SOLIS MR#: [id number] : 1965 SEX: F AGE: 58 LOCATION: [facility] ORDER 152 STATUS: ADM IN REPORT#: [id number] SERVICE 151 REASON: Evaluate systolic and valve function, hypotension ORDERING PHYSICIAN: KB FERNANDEZ CNP PROCEDURE: ECHO [facility] - ECHO 2-D COMPLETE APPROVED REPORT EXAM: Two-dimensional and M-mode echocardiogram with Doppler and color Doppler. Study Details: HTN ,HLD, Diabts M INDICATION ICD: Assess LV Function 2D Dimensions RVDd 5.2 cm LVEF(%) 66.9 (>50%) LA ESV INDEX (4CH) 18.70 mL/m2 IVSd 0.7 (0.7-1.1cm) FS(%) 38 % LVDd 5.6 (3.8-5.6cm) LA (2D) 3.7 (1.6-4.0cm) PWd 1.0 (0.7-1.1cm) Ao Root(2D) 3.0 (2.0-3.7cm) IVSs 1.3 cm LVOT diam 2.0 (1.8-2.4cm) LVDs 3.5 (2.5-4.0cm) PWs 1.4 cm Deformation Strain Apical 4 22.0 % Apical 2 20.0 % Apical 3 14.0 % Global Strain 19.0 % M-Mode Dimensions EPSS 0.9 cm LA (MM) 5.0 (1.6-4.0cm) Ao Root(MM) 2.9 (2.0-3.7cm) Aortic Valve AoV VTI 0.3 m Ao Mean GR 4.0 mmHg LVOT VTI 0.18 m NEAL (VMAX) 2.0 cm2 NEAL (VTI) 2.0 cm2 Mitral Valve MV E Vmax 62.6 cm/s DECEL Time 190 ms MV A Vmax 77.6 cm/s P 1/2 T 55 ms E/A ratio 0.8 MVA (PHT) 4.0 cm2 TDI E/E' Medial 10.6 E/E' Lateral 9.8 Medial E' Peak V 5.90 cm/s Lateral E' Peak V 6.40 cm/s Pulmonary Valve PV VTI 0.16 m PV Mean GR 1 mmHg Tricuspid Valve TR Vmax 2.7 m/s TR Peak GR 28.9 mmHg Left Ventricle The left ventricle is normal size. There is a septal bounce noted. The other tay are grossly normal in function. Mild concentric left ventricular hypertrophy. Left ventricular systolic function is normal, estimated LVEF is 55 to 60%. Stage I diastolic dysfunction. Right Ventricle The right ventricle is dilated, 5.2cm. The right ventricular systolic function is grossly normal Atria The left atrium is mildly dilated. The right atrium is dilated. Aortic Valve Aortic valve is trileaflet. The leaflets are mild thickened and calcified. Trace aortic regurgitation. There is no aortic valvular stenosis. Mitral Valve The mitral valve is normal in structure. Trace mitral regurgitation. There is no mitral valve stenosis. Tricuspid Valve The tricuspid valve is normal in structure. Mild tricuspid regurgitation. RVSP is 29 mmHg. Pulmonic Valve Pulmonic valve is not well visualized. Great Vessels The aortic root is normal in size. The ascending aorta is normal in size. IVC is dilated and collapses < 50% with inspiration. Pericardium No pericardial effusion. Conclusion The left atrium is mildly dilated. The right atrium is dilated. The right ventricle is dilated, 5.2cm. Mild concentric left ventricular hypertrophy. There is a septal bounce noted. The other tay are grossly normal in function. Left ventricular systolic function is normal, estimated LVEF is 55 to 60%. Stage I diastolic dysfunction. Trace aortic regurgitation. Trace mitral regurgitation. Mild tricuspid regurgitation. PASP is 44 mmHg. No pericardial effusion. DICTATED BY: JESSI HARPER MD DATE: 04/29/24 1047 ELECTRONICALLY SIGNED BY: JESSI HARPER MD DATE: 04/29/24 4132 Assessment/Plan: ASSESSMENT: Septic Shock - resolved Hypotension requiring vasopressor (Levophed) support - resolved Elevated lactic acid - resolved Neutropenia - POA Diabetes mellitus type II - POA Hypertension - POA OSH/ADAL - POA being treated at home with CPAP Morbid obesity BMI 49.8 Discharge Instructions: Follow up with PCP in 3-5 days. Continue IV Zosyn antibiotics via midline at [facility] for 14 days. Resume home medications. Home Medications: Reported Medications Cholecalciferol (Vitamin D3) (Vitamin D3) 10 Mcg (400 Unit) Tablet, 1 TAB PO DAILY for 30 Days, #30 TAB 0 Refills 04/26/24 Empagliflozin/Linagliptin (Glyxambi 25 mg-5 mg Tablet) 25 Mg-5 Mg Tablet, 1 TAB PO DAILY for 30 Days, #30 TAB 0 Refills 04/26/24 Lisinopril (Lisinopril) 10 Mg Tablet, 1 TAB PO DAILY for 30 Days, #30 TAB 0 Refills 04/26/24 Pioglitazone HCl (Pioglitazone HCl) 15 Mg Tablet, 15 MG PO DAILY, TAB 04/26/24 Atorvastatin Calcium (Atorvastatin Calcium) 10 Mg Tablet, 10 MG PO HS, TAB 04/26/24 Glipizide/Metformin HCl (Glipizide-Metformin 5-500 mg) 5 Mg-500 Mg Tablet, 2 TAB PO DAILY for 30 Days, #120 TAB 0 Refills 04/26/24 Continued Medications: Atorvastatin Calcium (Atorvastatin Calcium) 10 Mg Tablet 10 MG PO HS, TAB Cholecalciferol (Vitamin D3) (Vitamin D3) 10 Mcg (400 Unit) Tablet 1 TAB PO DAILY for 30 Days, #30 TAB 0 Refills Empagliflozin/Linagliptin (Glyxambi 25 mg-5 mg Tablet) 25 Mg-5 Mg Tablet 1 TAB PO DAILY for 30 Days, #30 TAB 0 Refills Glipizide/Metformin HCl (Glipizide-Metformin 5-500 mg) 5 Mg-500 Mg Tablet 2 TAB PO DAILY for 30 Days, #120 TAB 0 Refills Lisinopril (Lisinopril) 10 Mg Tablet 1 TAB PO DAILY for 30 Days, #30 TAB 0 Refills Pioglitazone HCl (Pioglitazone HCl) 15 Mg Tablet 15 MG PO DAILY, TAB Time spent arranging discharge: 1-30 minutes ATTESTATION BY PHYSICIAN I have seen and examined the patient. I reviewed the documentation, medical decision making, and treatment plan as noted by the resident provider above. I agree with the findings and plan of care. Patrice Nazario MD, PRIYA N May 04, 2024 16:33
--- NOTE | 2024-05-04 18:25 | NUR ---
PATIENT DISCHARGED HOME ID BAND REMOVED. DISCHARGE INSTRUCTIONS EXPLAINED AND GIVEN TO PATIENT. MEDICINE SCRIPT GIVEN TO PATIENT. PATIENT VERBALIZED UNDERSTANDING. BELONGINGS PACKED AND TAKEN BY PATIENT. WHEELED DOWN TO PRIVATE CAR.
== END 2024-05-04 18:30 | disposition home or self-care (01) | DRG 871 ==
LOC: EDH 22:17 → EDHIP 23:52 → 2BH 04-26 11:52 → 3CH 04-29 18:15
PROVIDERS: ADMIT Internal Medicine; ATTEND Internal Medicine
PROC: 02HV33Z Insertion of Infusion Device into Superior Vena Cava, Percutaneous Approach (ICD-10-PCS; principal; 2024-04-26)
PROC: B548ZZA Ultrasonography of Superior Vena Cava, Guidance (ICD-10-PCS; 2024-04-26)
PROC: 5A09357 Assistance with Respiratory Ventilation, Less than 24 Consecutive Hours, Continuous Positive Airway Pressure (ICD-10-PCS; 2024-04-27)
PROC: 05HD33Z Insertion of Infusion Device into Right Cephalic Vein, Percutaneous Approach (ICD-10-PCS; 2024-05-04)
PROC: B54MZZA Ultrasonography of Right Upper Extremity Veins, Guidance (ICD-10-PCS; 2024-05-04)
DX: A41.51 Sepsis due to Escherichia coli [E. coli] (principal); J18.9 Pneumonia, unspecified organism; R65.21 Severe sepsis with septic shock; J96.01 Acute respiratory failure with hypoxia; K65.1 Peritoneal abscess; N30.00 Acute cystitis without hematuria; Z68.42 Body mass index [BMI] 45.0-49.9, adult; E87.21 Acute metabolic acidosis; D70.9 Neutropenia, unspecified; I10 Essential (primary) hypertension; E78.5 Hyperlipidemia, unspecified; B96.89 Other specified bacterial agents as the cause of diseases classified elsewhere; E11.65 Type 2 diabetes mellitus with hyperglycemia; E66.01 Morbid (severe) obesity due to excess calories; G47.33 Obstructive sleep apnea (adult) (pediatric); B96.20 Unspecified Escherichia coli [E. coli] as the cause of diseases classified elsewhere; F41.9 Anxiety disorder, unspecified; D69.6 Thrombocytopenia, unspecified; Z98.51 Tubal ligation status; Z90.49 Acquired absence of other specified parts of digestive tract
CPT/HCPCS: 36415; 36600; 71045; 74176; 80048; 80053; 80202; 81001; 82435; 82550; 82803; 82947; 82948; 83036; 83605; 83735; 83880; 84100; 84132; 84145; 84295; 84484; 85018; 85025; 85027; 85610; 85730; 86140; 87040; 87071; 87086; 87186; 87205; 87426; 87635; 87641; 87804; 93005; 93306; 93356; 94640; 94660; 99285; C1894; G0378; J0456; J1650; J1720; J1815; J2185; J2543; J3370; J3475; J3480; J3490; J7030; J7120; 3370; C1750